=== PATIENT | female | born 1950 | race Caucasian/White ===

== ENCOUNTER → 2017-01-18 | Outpatient (CLI) | payer MEDICARE ==
[2017-01-18 09:55] LABS: ALT 32 U/L (9-52); AST 31 U/L (14-36); Cholesterol 150 mg/dL (<200); HDL Cholesterol 65 mg/dL (40-60); Triglycerides 55 mg/dL (<150)
== END | disposition home or self-care (01) ==
LOC: LABWHC1 08:36
PROVIDERS: ATTEND Family Medicine
DX: E78.00 Pure hypercholesterolemia, unspecified (principal)
CPT/HCPCS: 36415; 80061; 84450; 84460

== ENCOUNTER → 2018-01-16 | Outpatient (CLI) | payer MEDICARE ==
--- NOTE | 2018-01-16 08:15 | BD ---
EXAMINATION TYPE: Axial Bone Density DATE OF EXAM: 01/16/2018 COMPARISON: NONE CLINICAL HISTORY: Postmenopausal female. Osteoporosis screening. Height: 64 Weight: 242.5 FRAX RISK QUESTIONS: Alcohol (3 or more units per day): no Family History (Parent hip fracture): no Glucocorticoids (More than 3mos): no (Ex: prednisone, prednisolone, methylprednisolone, dexamethasone, and hydrocortisone). History of Fracture in Adulthood: no Secondary Osteoporosis: 1. Type 1 Diabetes: no 2. Hyperthyroidism: no 3. Menopause before 45: no 4. Malnutrition: no 5. Chronic liver disease: no Rheumatoid Arthritis: no Current Tobacco Use: no RISK FACTORS HISTORY OF: History of Wrist Fracture: left wrist When: age 11 Surgery to Spine/Hip(right/left)/Wrist (right/left): lower lumbar disc When: Active: yes Diet low in dairy products/other sources of calcium: yes Postmenopausal woman: age 51 Lost more than 2 inches in height since high school: yes Frequent falls: no MEDICATIONS: cholesterol meds, blood pressure meds, water pill, inhaler, vitamins Thyroid Medications: levothyroxine How Lon years Additional History: EXAM MEASUREMENTS: Bone mineral densitometry was performed using the [employer] System. Bone mineral density as measured about the Lumbar spine is: ----- L1-L4(G/cm2): 1.273 T Score Values are as follows: ----- L2: 0.0 ----- L3: 1.4 ----- L4: 1.3 ----- L1-L4: 0.8 Bone mineral density baseline Bone mineral density about the R hip (g/cm2): 0.790 Bone mineral density about the L hip (g/cm2): 0.788 T Score values are as follows: -----R Neck: -1.8 -----L Neck: -1.8 -----R Total: -1.0 -----L Total: -0.8 Bone mineral density has:: baseline IMPRESSION: Osteopenia (T Score between -2.5 and -1). There is slightly increased risk of fracture and the patient may be considered for treatment. Re-Screen 2-5 years. NOTE: T-SCORE=SD OF THE YOUNG ADULT MEAN.
--- NOTE | 2018-01-17 13:27 | MM ---
Reason for exam: screening (asymptomatic). Last mammogram was performed 2 years and 7 months ago. History: Patient is postmenopausal. Took hormonal contraceptives for 3 years. Physical Findings: A clinical breast exam by your physician is recommended on an annual basis and results should be correlated with mammographic findings. MG 3D Screening Mammo W/Cad Bilateral CC and MLO view(s) were taken. Prior study comparison: June 23, 2015, mammogram, performed at [facility]. June 16, 2011, mammogram, performed at [facility]. There are scattered fibroglandular densities. No significant changes when compared with prior studies. ASSESSMENT: Benign, BI-RAD 2 RECOMMENDATION: Routine screening mammogram of both breasts in 1 year.
== END | disposition home or self-care (01) ==
LOC: RADMAMWWP 06:49
PROVIDERS: ATTEND Family Medicine
DX: Z12.31 Encounter for screening mammogram for malignant neoplasm of breast (principal); M85.80 Other specified disorders of bone density and structure, unspecified site
CPT/HCPCS: 77063; 77067; 77080

== ENCOUNTER 2018-04-10 20:37 | Inpatient (IN) | payer MEDICARE ==
--- NOTE | 2018-04-10 20:59 | ED ---
Chest Pain HPI - General Chief Complaint: Chest Pain Stated Complaint: SOB/poss kidney infection Time Seen by Provider: 04/10/18 20:51 Source: patient, family Mode of arrival: ambulatory Limitations: no limitations - History of Present Illness Initial Comments: Sirisha is an obese 68-year-old female who presents to the emergency department today for evaluation of chest pain and shortness of breath. Patient reports that she has a history of COPD and occasionally needs breathing treatments. She reports that today she was sitting at home, they do not have air conditioning at home. She reports that if she sat on her couch in front of a fan she felt okay but any time she got up to walk she felt as though she couldn' t breathe. Patient reports that throughout the evening she began feeling pressure in her chest which she describes as feeling like there is an elephant sitting on her chest. She cannot identify any exacerbating or relieving factors to the pain. Pain has been constant this afternoon. This pressure is associated with shortness of breath but no diaphoresis lightheadedness or palpitations. Patient has no cardiac history and has never been evaluated by product safety specialist in the past. Patient denies any recent fevers, chills, nausea or vomiting. She does report that she feels as though she is retaining fluid, she feels that her abdomen is distended as well as mild swelling of her bilateral lower extremities. Patient reports that this is progressively worsening over time. She has no formal diagnosis of congestive heart failure but does state that she is on water pills. Patient reports that she has been compliant with her home medications including her furosemide. Patient denies any recent fevers, chills, nausea or vomiting. - Related Data Home Medications Medication Instructions Recorded Confirmed Levothyroxine Sodium [Synthroid] 50 mcg PO QAM 04/10/14 04/10/18 Lisinopril [Zestril] 10 mg PO QAM 04/10/14 04/10/18 Montelukast [Singulair] 10 mg PO HS 04/10/14 04/10/18 Ascorbic Acid [Vitamin C] 500 mg PO DAILY 02/23/16 04/10/18 Calcium Carbonate [Calcium] 1,200 mg PO DAILY 02/23/16 04/10/18 Fluticasone/Salmeterol [Advair Hfa 2 puff INHALATION RT-BID 02/23/16 04/10/18 230-21 Mcg Inhaler] Multivit with Calcium,Iron,Min 1 tab PO DAILY 02/23/16 04/10/18 [Women's Daily Multivitamin] Furosemide [Lasix] 20 mg PO DAILY 06/28/16 04/10/18 Magnesium 200 mg PO DAILY 06/28/16 04/10/18 Cholecalciferol [Vitamin D3] 1,000 unit PO DAILY 04/10/18 04/10/18 L.acidoph,Paracasei, B.lactis 1 cap PO DAILY 04/10/18 04/10/18 [Probiotic] Naproxen Sodium [Aleve] 220 mg PO HS PRN 04/10/18 04/10/18 [place]-3 Fatty Acids/Fish Oil [Fish 1 cap PO DAILY 04/10/18 04/10/18 Oil 1,000 mg Softgel] Rosuvastatin Calcium [Crestor] 10 mg PO HS 04/10/18 04/10/18 Ubidecarenone [Co Q-10] 100 mg PO DAILY 04/10/18 04/10/18 Allergies Allergy/AdvReac Type Severity Reaction Status Date / Time codeine Allergy Unknown Verified 04/10/18 22:31 Penicillins Allergy Unknown Verified 04/10/18 22:31 Sulfa (Sulfonamide Allergy Unknown Verified 04/10/18 22:31 Antibiotics) actofed Allergy Unknown Uncoded 04/10/18 20:49 Review of Systems ROS Statement: Those systems with pertinent positive or pertinent negative responses have been documented in the HPI. ROS Other: All systems not noted in ROS Statement are negative. EKG Findings - EKG Comments: EKG Findings:: EKG obtained at 2053, rate is 92, rhythm is sinus, normal axis, normal intervals, VA 168, QRS 80, QTC 435, there are no acute ST elevations or depressions there is no evidence of acute ischemia or infarction or arrhythmia. Past Medical History Past Medical History: Asthma, COPD, GERD/Reflux, Hyperlipidemia, Hypertension, Osteoarthritis (OA), Thyroid Disorder Additional Past Medical History / Comment(s): emphysema, hx migraines, rash on back History of Any Multi-Drug Resistant Organisms: None Reported Past Surgical History: Appendectomy, Back Surgery, Cholecystectomy, Tonsillectomy Additional Past Surgical History / Comment(s): colonoscopy Past Anesthesia/Blood Transfusion Reactions: No Reported Reaction Past Psychological History: No Psychological Hx Reported Smoking Status: Former smoker - Past Family History Mother Family Medical History: No Reported History General Exam - General Exam Comments Initial Comments: GENERAL: Patient is well-developed and well-nourished. Patient is nontoxic and well- hydrated and is in mild distress. HENT: Normocephalic, Atraumatic. Neck is soft and supple. No significant lymphadenopathy is noted. Oropharynx is clear. Moist mucous membranes. Neck has full range of motion without eliciting any pain. EYES: The sclera were anicteric and conjunctiva were pink and moist. Extraocular movements were intact and pupils were equal round and reactive to light. Eyelids were unremarkable. PULMONARY: Tachypnea with crackles at the bilateral bases CARDIOVASCULAR: There is a regular rate and rhythm without any murmurs gallops or rubs. ABDOMEN: Soft and nontender with normal bowel sounds. Obese SKIN: Skin is clear with no lesions or rashes and otherwise unremarkable. NEUROLOGIC: Patient is alert and oriented x3. Cranial nerves II through XII are grossly intact. MUSCULOSKELETAL: Normal extremities with adequate strength and full range of motion. No calf tenderness. One plus pitting edema to the lower extremities bilaterally LYMPHATICS: No significant lymphadenopathy is noted PSYCHIATRIC: Normal psychiatric evaluation. Limitations: no limitations Limitations: no limitations Course Vital Signs 04/10/18 04/10/18 04/11/18 20:46 21:26 00:09 Temperature 99.7 F H Pulse Rate 98 85 Respiratory 28 H 18 20 Rate Blood Pressure 146/85 170/75 O2 Sat by Pulse 94 L 91 L Oximetry 04/11/18 00:47 Temperature 98.3 F Pulse Rate 82 Respiratory 16 Rate Blood Pressure 153/70 O2 Sat by Pulse 93 L Oximetry Chest Pain MDM - MDM The patient was seen and evaluated, history was obtained from the patient and daughter at bedside COPD patient with worsening SOB today, states that she does not have air conditioning at home and she feels very short of breath. She states that she feels fine if she sits on her couch with a fan on her face, however if she gets up to walk to the restroom she becomes very short of breath and her chest feels tight. Cardiac workup ordered Duoneb and Solumedrol ordered CXR unremarkable Patient ambulated to the restroom independently, upon turning to her room she was placed back on the monitor noted to have an oxygen saturation mid 80s results work of breathing Trop negative, EKG with no evidence of ischemia At this time I will plan to admit the patient for COPD exacerbation with hypoxia as well as chest pain Patient is agreeable to plan for admission. Patient expresses concern that the weather is too hot for her to be at home without air conditioning because she cannot breath well at home. Disposition Clinical Impression: Chest pain, COPD exacerbation, Hypoxia Disposition: ADMITTED IP TO THIS HOSP Condition: Stable
[2018-04-10 21:39] LABS: Basophils # (A) 0.1 k/uL (0-0.2); Basophils % (A) 0 %; Eosinophils # (A) 0.1 k/uL (0-0.7); Eosinophils % (A) 1 %; HCT 41.3 % (34.0-46.0); HGB 13.2 gm/dL (11.4-16.0); Lymphocytes # (A) 2.9 k/uL (1.0-4.8); Lymphocytes % (A) 14 %; MCH 29.1 pg (25.0-35.0); MCHC 31.8 g/dL (31.0-37.0); MCV 91.4 fL (80.0-100.0); Mean Platelet Volume 7.2; Monocytes # (A) 0.8 k/uL (0-1.0); Monocytes % (A) 4 %; Neutrophils # (A) 16.5 k/uL (1.3-7.7); Neutrophils % (A) 80 %; Platelet Count 308 k/uL (150-450); RBC 4.52 m/uL (3.80-5.40); RDW 13.6 % (11.5-15.5); WBC 20.5 k/uL (3.8-10.6)
[2018-04-10 21:54] LABS: ALT 31 U/L (9-52); AST 24 U/L (14-36); Albumin 4.4 g/dL (3.5-5.0); Alkaline Phosphatase 98 U/L (38-126); Anion Gap 12 mmol/L; Blood Urea Nitrogen 13 mg/dL (7-17); Calcium 9.5 mg/dL (8.4-10.2); Carbon Dioxide 21 mmol/L (22-30); Chloride 100 mmol/L (98-107); Glucose 94 mg/dL (74-99); Magnesium 1.8 mg/dL (1.6-2.3); Potassium 4.7 mmol/L (3.5-5.1); Prothrombin Time 10.1 sec (9.0-12.0); Sodium 133 mmol/L (137-145); Total Bilirubin 0.5 mg/dL (0.2-1.3); Total Protein 7.1 g/dL (6.3-8.2)
[2018-04-10 21:56] LABS: Creatine Kinase 64 U/L (30-135)
--- NOTE | 2018-04-10 21:57 | XR ---
EXAMINATION TYPE: XR chest 2V DATE OF EXAM: 04/10/2018 COMPARISON: NONE HISTORY: Chest pain TECHNIQUE: Frontal and lateral views of the chest are obtained. FINDINGS: There is no heart failure nor confluent pneumonic infiltrate. Costophrenic angles are thaddeus r. Heart size is normal. There are chest leads. Exam is limited by the patient's size. IMPRESSION: No active cardiopulmonary disease. Normal heart.
[2018-04-10 22:09] LABS: Creatine Kinase MB 0.7 ng/mL (0.0-2.4); Troponin I <0.012 ng/mL (0.000-0.034)
[2018-04-10] MEDS ORDERED: methylPREDNISolone SOD SUCCI 125 MG/2 ML VIAL IV STA (22:47)
[2018-04-10 23:11] LABS: Appearance,Urine Clear (Clear); Bilirubin,Urine Negative (Negative); Blood,Urine Negative (Negative); Color,Urine Yellow; Glucose,Urine (UA) Negative (Negative); Ketones,Urine Trace (Negative); Leukocyte Esterase,Urine Small (Negative); Nitrite,Urine Negative (Negative); Protein,Urine Negative (Negative); RBC,Urine 1 /hpf (0-5); Specific Gravity,Urine 1.009 (1.001-1.035); Squamous Epithelial Cell,Urine <1 /hpf (0-4); Urobilinogen,Urine <2.0 mg/dL (<2.0); WBC,Urine 4 /hpf (0-5)
[2018-04-10] MEDS ORDERED: ASPIRIN 81 MG PO STA (23:53)
[2018-04-10] MEDS ORDERED: NITROGLYCERIN OINT 1 INCH/GM PACKET TOPICAL STA (23:53)
[2018-04-11 01:30] VITALS: BMI 42.0
[2018-04-11 04:39] LABS: Creatine Kinase 54 U/L (30-135)
[2018-04-11 04:51] LABS: Creatine Kinase MB 0.8 ng/mL (0.0-2.4); Troponin I <0.012 ng/mL (0.000-0.034)
[2018-04-11] MEDS: NITROGLYCERIN OINT 1 INCH/GM PACKET TOPICAL SCH ×4 (06:05→23:45)
[2018-04-11] MEDS: IPRATROPIUM-ALBUTEROL 3 ML NEB INHALATION PRN ×3 (07:45→20:38)
[2018-04-11] MEDS ORDERED: predniSONE 20 MG TAB PO SCH (09:00)
--- NOTE | 2018-04-11 09:44 | P.CRDCN ---
History of Present Illness Consult date: 04/11/18 Requesting physician: Lynette Freeman Consult reason: chest pain, shortness of breath Chief complaint: Chest heaviness, shortness of breath, fever History of present illness: This is a pleasant 68-year-old female with known history of COPD, hypertension, hyperlipidemia, hypothyroidism, prior history of smoking, who presented to the hospital with symptoms of chest pressure and heaviness, worsening shortness of breath, and fever. She states that initially she felt a discomfort in her lower back area and generally just not feeling well. She checked her temperature at home which came back to be 99, subsequent temperature she checked was 102. She also states that she's been progressively more short of breath at home, positive orthopnea, and also she has noticed recently to have peripheral edema which appears to be new for her. For all of the above reasons she came to the emergency room for further evaluation. Approximately 2 months ago, she states that she went to see her lung doctor, she felt as though she may have pneumonia, he started her on steroids, which she states she has been off of for a month now. Chest x-ray on admission did not reveal any active cardiopulmonary disease. EKG shows a normal sinus rhythm with no acute changes. Subsequent EKG performed this morning shows normal sinus rhythm with no acute changes. Blood pressure on arrival here 146/84, heart rate in the 90s, 94% on room air. Temperature on arrival 99.7. This morning's temperature 96.5, 99/60 blood pressure, 94% on 2 L of oxygen. White blood cell count 20.5, hemoglobin 13.2, platelet count 308. Sodium 133, potassium 4.7, BUN 13, creatinine 0.7. Magnesium 1.8. Troponins 0.012, 0.012. UA trace of ketones, small amount of leukocyte Estrace. At the time of my examination this morning, patient denies any chest pressure or heaviness, she still complains of feeling mildly short of breath. Past Medical History Past Medical History: Asthma, COPD, GERD/Reflux, Hyperlipidemia, Hypertension, Osteoarthritis (OA), Thyroid Disorder Additional Past Medical History / Comment(s): emphysema, hx migraines, rash on back History of Any Multi-Drug Resistant Organisms: None Reported Past Surgical History: Appendectomy, Back Surgery, Cholecystectomy, Tonsillectomy Additional Past Surgical History / Comment(s): colonoscopy Past Anesthesia/Blood Transfusion Reactions: No Reported Reaction Past Psychological History: No Psychological Hx Reported Smoking Status: Former smoker - Past Family History Mother Family Medical History: No Reported History Additional Family Medical History / Comment(s): from alzheimers Father Family Medical History: Congestive Heart Failure (CHF) Additional Family Medical History / Comment(s): valve replacement Medications and Allergies Home Medications Medication Instructions Recorded Confirmed Type Levothyroxine Sodium [Synthroid] 50 mcg PO QAM 04/10/14 04/10/18 History Lisinopril [Zestril] 10 mg PO QAM 04/10/14 04/10/18 History Montelukast [Singulair] 10 mg PO HS 04/10/14 04/10/18 History Ascorbic Acid [Vitamin C] 500 mg PO DAILY 02/23/16 04/10/18 History Calcium Carbonate [Calcium] 1,200 mg PO DAILY 02/23/16 04/10/18 History Fluticasone/Salmeterol [Advair Hfa 2 puff INHALATION RT-BID 02/23/16 04/10/18 History 230-21 Mcg Inhaler] Multivit with Calcium,Iron,Min 1 tab PO DAILY 02/23/16 04/10/18 History [Women's Daily Multivitamin] Furosemide [Lasix] 20 mg PO DAILY 06/28/16 04/10/18 History Magnesium 200 mg PO DAILY 06/28/16 04/10/18 History Cholecalciferol [Vitamin D3] 1,000 unit PO DAILY 04/10/18 04/10/18 History L.acidoph,Paracasei, B.lactis 1 cap PO DAILY 04/10/18 04/10/18 History [Probiotic] Naproxen Sodium [Aleve] 220 mg PO HS PRN 04/10/18 04/10/18 History [place]-3 Fatty Acids/Fish Oil [Fish 1 cap PO DAILY 04/10/18 04/10/18 History Oil 1,000 mg Softgel] Rosuvastatin Calcium [Crestor] 10 mg PO HS 04/10/18 04/10/18 History Ubidecarenone [Co Q-10] 100 mg PO DAILY 04/10/18 04/10/18 History Allergies Allergy/AdvReac Type Severity Reaction Status Date / Time codeine Allergy Unknown Verified 04/10/18 22:31 Penicillins Allergy Unknown Verified 04/10/18 22:31 Sulfa (Sulfonamide Allergy Unknown Verified 04/10/18 22:31 Antibiotics) actofed Allergy Unknown Uncoded 04/10/18 20:49 Physical Exam Vitals: Vital Signs Temp Pulse Pulse Resp BP BP Pulse Ox 04/11/18 08:00 96.5 F L 75 16 99/65 94 L 04/11/18 07:58 84 04/11/18 07:47 76 04/11/18 04:00 97.2 F L 71 16 142/85 93 L 04/11/18 00:54 97.2 F L 88 16 143/83 94 L 04/11/18 00:47 98.3 F 82 16 153/70 93 L 04/11/18 00:09 85 20 170/75 91 L 04/10/18 21:26 18 04/10/18 20:46 99.7 F H 98 28 H 146/85 94 L Intake and Output 04/10/18 04/11/18 04/11/18 22:59 06:59 14:59 Intake Total 0 Balance 0 Intake: Oral 0 Other: # Voids 1 Weight 111.13 kg 108.5 kg PHYSICAL EXAMINATION: GENERAL: 68 patient female in no acute distress at the time of my examination HEENT: Head is atraumatic, normocephalic. Pupils equal, round. Sclera anicteric. Conjunctiva are clear. Mucous membranes of the mouth are moist. Neck is supple. There is elevated jugular venous pressure. No carotid bruit is heard. HEART EXAMINATION: Heart S1, S2 normal. No murmur or gallop heard. CHEST EXAMINATION: Lungs are clear with diminished air entry to bilateral bases. ABDOMEN: Soft, nontender. Bowel sounds are heard. No organomegaly noted. EXTREMITIES: 2+ peripheral pulses with trace evidence of peripheral edema and no calf tenderness noted. NEUROLOGIC patient is awake, alert and oriented ?-3. . Results 04/10/18 21:00 04/10/18 21:00 Cardiac Enzymes 04/10/18 04/10/18 04/11/18 Range/Units 21:00 21:00 03:28 AST 24 (14-36) U/L CK-MB (CK-2) 0.7 0.8 (0.0-2.4) ng/mL Troponin I <0.012 <0.012 (0.000-0.034) ng/mL Coagulation 04/10/18 Range/Units 21:00 PT 10.1 (9.0-12.0) sec APTT 26.0 (22.0-30.0) sec CBC 04/10/18 Range/Units 21:00 WBC 20.5 H (3.8-10.6) k/uL RBC 4.52 (3.80-5.40) m/uL Hgb 13.2 (11.4-16.0) gm/dL Hct 41.3 (34.0-46.0) % Plt Count 308 (150-450) k/uL Comprehensive Metabolic Panel 04/10/18 Range/Units 21:00 Sodium 133 L (137-145) mmol/L Potassium 4.7 (3.5-5.1) mmol/L Chloride 100 (98-107) mmol/L Carbon Dioxide 21 L (22-30) mmol/L BUN 13 (7-17) mg/dL Creatinine 0.70 (0.52-1.04) mg/dL Glucose 94 (74-99) mg/dL Calcium 9.5 (8.4-10.2) mg/dL AST 24 (14-36) U/L ALT 31 (9-52) U/L Alkaline Phosphatase 98 (38-126) U/L Total Protein 7.1 (6.3-8.2) g/dL Albumin 4.4 (3.5-5.0) g/dL Current Medications Generic Name Dose Route Start Last Admin Trade Name Freq PRN Reason Stop Dose Admin Albuterol/Ipratropium 3 ml 04/11/18 00:01 04/11/18 07:45 Duoneb 0.5 Mg-3 Mg/3 Ml Soln INHALATION 3 ml RT-Q4H PRN Administration Shortness Of Breath Or Wheezing Aspirin 325 mg 04/12/18 09:00 Aspirin PO DAILY ALICIA Nitroglycerin 0.5 inch 04/11/18 06:00 04/11/18 06:05 Nitro-Bid Oint TOPICAL 0.5 inch Q6HR ALICIA Administration Prednisone 40 mg 04/11/18 09:00 04/11/18 07:59 PO 40 mg DAILY ALICIA Administration Intake and Output 04/10/18 04/11/18 04/11/18 22:59 06:59 14:59 Intake Total 0 Balance 0 Intake: Oral 0 Other: # Voids 1 Weight 111.13 kg 108.5 kg 04/10/18 21:00 04/10/18 21:00 EKG Interpretations (text) EKG shows normal sinus rhythm with no acute changes. Assessment and Plan Plan: Assessment and plan #1 symptoms of chest heaviness with associated shortness of breath, atypical features for ACS. EKG shows normal sinus rhythm with no acute changes. Troponins are negative 2. #2 fever of 102 prior to arrival, temperature 99.0. With elevated white blood cell count. No clear-cut evidence of UTI. Rule out possible pneumonia. #3 COPD with a possible exacerbation #4 hypertension #5 hyperlipidemia #6 prior history of smoking #7Hypothyroidism Plan We will obtain an echocardiogram with Doppler study. We will also obtain a BNP level. Resume the patient's Crestor, resume Lasix and Zestril. Patient's symptoms of chest discomfort are atypical for acute coronary syndrome, however once the cause of fever is determined, we would recommend to undergo stress testing either inpatient or outpatient. Further recommendations to follow. DNP note has been reviewed, I agree with a documented findings and plan of care. Patient was seen and examined.
[2018-04-11 10:18] LABS: Creatine Kinase 56 U/L (30-135)
[2018-04-11 10:31] LABS: Creatine Kinase MB 1.2 ng/mL (0.0-2.4); Troponin I <0.012 ng/mL (0.000-0.034)
--- NOTE | 2018-04-11 12:55 | ECHOF ---
Referral Reason:chest pain MEASUREMENTS -------- HEIGHT: 162.6 cm WEIGHT: 108.4 kg BP: 90/65 RVIDd: 2.7 cm (< 3.3) IVSd: 1.4 cm (0.6 - 1.1) LVIDd: 4.3 cm (3.9 - 5.3) LVPWd: 1.1 cm (0.6 - 1.1) IVSs: 1.7 cm LVIDs: 2.7 cm LVPWs: 2.0 cm LA Diam: 3.9 cm (2.7 - 3.8) Ao Diam: 2.6 cm (2.0 - 3.7) AV Cusp: 1.7 cm (1.5 - 2.6) LA Diam: 4.0 cm (2.7 - 3.8) MV EXCURSION: 21.432 mm (> 18.000) MV EF SLOPE: 61 mm/s (70 - 150) EPSS: 0.7 cm MV E Wood: 0.59 m/s MV DecT: 244 ms MV A Wood: 0.89 m/s MV E/A Ratio: 0.66 RAP: 5.00 mmHg RVSP: 14.34 mmHg FINDINGS -------- Sinus rhythm. This was a technically adequate study. The left ventricular size is normal. There is mild concentric left ventricular hypertrophy. Overa ll left ventricular systolic function is normal with, an EF between 55 - 60 %. The right ventricle is normal in size. The left atrial size is normal. The right atrial size is normal. Aortic valve is trileaflet and is mildly thickened. There is no evidence of aortic regurgitation. Mild mitral annular calcification present. Mild mitral regurgitation is present. Mild tricuspid regurgitation present. There is no evidence of pulmonary hypertension. The right v entricular systolic pressure, as measured by Doppler, is 14.34mmHg. There is no pulmonic regurgitation present. The aortic root size is normal. Echo free space represents a pericardial fat pad. CONCLUSIONS -------- 1. Sinus rhythm. 2. The left ventricular size is normal. 3. There is mild concentric left ventricular hypertrophy. 4. Overall left ventricular systolic function is normal with, an EF between 55 - 60 %. 5. The left atrial size is normal. 6. Aortic valve is trileaflet and is mildly thickened. 7. Mild mitral annular calcification present. 8. Mild mitral regurgitation is present. 9. Mild tricuspid regurgitation present. 10. There is no evidence of pulmonary hypertension. 11. There is no pulmonic regurgitation present. 12. The aortic root size is normal. 13. Echo free space represents a pericardial fat pad. T[employer] DISTILLATION SUPERVISOR: Cheryl Singh RDCS
--- NOTE | 2018-04-11 14:23 | P.CNPUL ---
History of Present Illness Consult date: 04/11/18 Requesting physician: Lynette Freeman Reason for consult: dyspnea Chief complaint: Shortness of breath, chest pain History of present illness: This a very pleasant 68-year-old female patient who follows with Dr. Jhaveri as her primary care physician. She has a history of hypothyroidism, hypertension, hyperlipidemia, history esophageal reflux disease, osteoarthritis. She also has a history of chronic obstructive pulmonary disease and is a former smoker. She follows up with Dr. Longoria in our office for the same. She is on Singulair, Advair, albuterol in the outpatient setting. She presented here to the emergency room last evening with complaints of chest pressure, heaviness and shortness of breath. She also states she had a temperature up to 102. Occasional cough nonproductive. She also had some lower extremity peripheral edema. She was at rest when the symptoms occurred. No previous history of chest pain or coronary artery disease. Chest x-ray reveals no acute cardio pulmonary process. EKG reveals no acute ST or T wave abnormalities. Echocardiogram reveals preserved left ventricular systolic function. No significant valvular abnormalities. No pulmonary hypertension. Troponins are negative 3. ProBNP 81. White count 20.5. Hemoglobin 13.2. CO2 21. Creatinine 0.70. She is seen today in consultation on the selective care unit. She is awake and alert in no acute distress. She does have some ongoing dyspnea with exertion. Dry nonproductive cough. No fever or chills. Currently afebrile. Maintaining O2 saturations in the 90s on 2 L/m per nasal cannula. Hemodynamically stable. Chest pain has subsided she states following the nitro paste application. Review of Systems Constitutional: Reports chills, Reports fever Eyes: denies blurred vision, denies decreased vision Ears: deny: decreased hearing Ears, nose, mouth and throat: Denies headache, Denies sore throat Cardiovascular: Reports chest pain, Reports dyspnea on exertion, Reports edema, Reports shortness of breath Respiratory: Reports congestion, Reports cough, Reports dyspnea, Reports wheezing Gastrointestinal: Denies abdominal pain, Denies diarrhea, Denies nausea, Denies vomiting Genitourinary: Denies dysuria, Denies hematuria Musculoskeletal: Denies myalgias Integumentary: Denies pruritus, Denies rash Neurological: Denies numbness, Denies weakness Psychiatric: Denies anxiety, Denies depression Endocrine: Denies fatigue, Denies weight change Hematologic/Lymphatic: Reports as per HPI Allergic/Immunologic: Reports as per HPI Past Medical History Past Medical History: Asthma, COPD, GERD/Reflux, Hyperlipidemia, Hypertension, Osteoarthritis (OA), Thyroid Disorder Additional Past Medical History / Comment(s): emphysema, hx migraines, rash on back History of Any Multi-Drug Resistant Organisms: None Reported Past Surgical History: Appendectomy, Back Surgery, Cholecystectomy, Tonsillectomy Additional Past Surgical History / Comment(s): colonoscopy Past Anesthesia/Blood Transfusion Reactions: No Reported Reaction Past Psychological History: No Psychological Hx Reported Smoking Status: Former smoker - Past Family History Mother Family Medical History: No Reported History Additional Family Medical History / Comment(s): from alzheimers Father Family Medical History: Congestive Heart Failure (CHF) Additional Family Medical History / Comment(s): valve replacement Medications and Allergies Home Medications Medication Instructions Recorded Confirmed Type Levothyroxine Sodium [Synthroid] 50 mcg PO QAM 04/10/14 04/10/18 History Lisinopril [Zestril] 10 mg PO QAM 04/10/14 04/10/18 History Montelukast [Singulair] 10 mg PO HS 04/10/14 04/10/18 History Ascorbic Acid [Vitamin C] 500 mg PO DAILY 02/23/16 04/10/18 History Calcium Carbonate [Calcium] 1,200 mg PO DAILY 02/23/16 04/10/18 History Fluticasone/Salmeterol [Advair Hfa 2 puff INHALATION RT-BID 02/23/16 04/10/18 History 230-21 Mcg Inhaler] Multivit with Calcium,Iron,Min 1 tab PO DAILY 02/23/16 04/10/18 History [Women's Daily Multivitamin] Furosemide [Lasix] 20 mg PO DAILY 06/28/16 04/10/18 History Magnesium 200 mg PO DAILY 06/28/16 04/10/18 History Cholecalciferol [Vitamin D3] 1,000 unit PO DAILY 04/10/18 04/10/18 History L.acidoph,Paracasei, B.lactis 1 cap PO DAILY 04/10/18 04/10/18 History [Probiotic] Naproxen Sodium [Aleve] 220 mg PO HS PRN 04/10/18 04/10/18 History [place]-3 Fatty Acids/Fish Oil [Fish 1 cap PO DAILY 04/10/18 04/10/18 History Oil 1,000 mg Softgel] Rosuvastatin Calcium [Crestor] 10 mg PO HS 04/10/18 04/10/18 History Ubidecarenone [Co Q-10] 100 mg PO DAILY 04/10/18 04/10/18 History Allergies Allergy/AdvReac Type Severity Reaction Status Date / Time codeine Allergy Unknown Verified 04/10/18 22:31 Penicillins Allergy Unknown Verified 04/10/18 22:31 Sulfa (Sulfonamide Allergy Unknown Verified 04/10/18 22:31 Antibiotics) actofed Allergy Unknown Uncoded 04/10/18 20:49 Physical Exam Vitals: Vital Signs Temp Pulse Pulse Resp BP BP Pulse Ox 04/11/18 12:00 70 16 143/85 93 L 04/11/18 08:00 96.5 F L 75 16 99/65 94 L 04/11/18 07:58 84 04/11/18 07:47 76 04/11/18 04:00 97.2 F L 71 16 142/85 93 L 04/11/18 00:54 97.2 F L 88 16 143/83 94 L 04/11/18 00:47 98.3 F 82 16 153/70 93 L 04/11/18 00:09 85 20 170/75 91 L 04/10/18 21:26 18 04/10/18 20:46 99.7 F H 98 28 H 146/85 94 L Intake and Output 04/10/18 04/11/18 04/11/18 22:59 06:59 14:59 Intake Total 0 Balance 0 Intake: Oral 0 Other: # Voids 1 Weight 111.13 kg 108.5 kg GENERAL EXAM: Alert, active, comfortable in no apparent distress. HEAD: Normocephalic. EYES: Normal reaction of pupils, equal size. NOSE: Clear with pink turbinates. THROAT: No erythema or exudates. NECK: No masses, no JVD. CHEST: No chest wall deformity. LUNGS: Equal air entry with faint end expiratory wheeze. CVS: S1 and S2 normal with no audible murmur, regular rhythm. ABDOMEN: No hepatosplenomegaly, normal bowel sounds, no guarding or rigidity. SPINE: No scoliosis or deformity SKIN: No rashes CENTRAL NERVOUS SYSTEM: No focal deficits, tone is normal in all 4 extremities. EXTREMITIES: There is no peripheral edema. No clubbing, no cyanosis. Peripheral pulses are intact. Results - Laboratory Findings CBC and BMP: 04/10/18 21:00 04/10/18 21:00 PT/INR, D-dimer PT 10.1 sec (9.0-12.0) 04/10/18 21:00 INR 1.0 (<1.2) 04/10/18 21:00 Abnormal lab findings: Abnormal Labs 04/10/18 04/10/18 04/10/18 21:00 21:00 22:42 WBC 20.5 H Neutrophils # 16.5 H Sodium 133 L Carbon Dioxide 21 L Urine Ketones Trace H Ur Leukocyte Esterase Small H - Diagnostic Findings Chest x-ray: image reviewed (No acute cardio pulmonary process.) Assessment and Plan Assessment: Impression: #1 Atypical chest pain with no evidence of acute coronary syndrome. #2 Acute exacerbation of chronic obstructive pulmonary disease. #3 History of chronic tobacco dependence. #4 Hyperlipidemia. #5 Hypertension. #6 Hypothyroidism. #7 Osteoarthritis. Plan: The patient was seen and evaluated by Dr. Waller. Chest x-ray and labs reviewed. We'll go ahead and treat her for an acute exacerbation of her COPD. IV Solu-Medrol, DuoNeb inhalations, Symbicort, Singulair. She has been seen and evaluated by cardiology and the plan is for probable stress testing. We will continue to follow and make further recommendations based on her clinical status. I, the cosigning physician, performed a history & physical examination of the patient. Lungs sounds with faint end expiratory wheeze. Maintaining good O2 saturations in the 90s on 2 L/m per nasal cannula. I discussed the assessment and plan of care with my nurse practitioner, Aleksandra Crook. I attest to the above note as dictated by her. Time with Patient: Greater than 30
--- NOTE | 2018-04-11 16:08 | P.HPIM ---
History of Present Illness H&P Date: 04/11/18 Chief Complaint: Shortness of breath Patient is a 68-year-old female with a known history of COPD/asthma, hypertension, hyperlipidemia, hypothyroidism and osteoarthritis came to ER with complaints of shortness of breath and chest pain at the right lower chest and tightness. Patient also says that she had a temperature up to 102. Patient does have cough without sputum production. No recent illnesses. No sick contacts at home. Patient also noticed some lower extremity swelling. Denied any recent illnesses. Chest x-ray showed no acute cardio pulmonary process. UA negative. EKG showed normal sinus rhythm. No acute ST-T wave changes. 2-D echo Cardizem showed normal EF. No wall motion abnormalities. BNP 81 Troponin 3 negative WBC 20.5 on admission. Patient is being treated for acute COPD exacerbation and is currently breathing status is improving. Patient is not on home oxygen. Review of Systems Constitutional: Patient denies any fever or chills . No generalized weakness or weight loss. Abdomen: Patient denied nausea vomiting and diarrhea and abdominal pain. Cardiovascular: Patient denies any chest pain or short of breath no palpitations. Respiratory: Patient does have chest pressure and shortness of breath and tightness. Cough without much sputum production. Neurologic: Patient denied any numbness or tingling headache. Musculoskeletal: Patient denies any complaints of joint swelling or deformity. Skin: Negative Psychiatric: Negative Endocrine: No heat or cold intolerance. No recent weight gain. Genitourinary: No dysuria or hematuria. All other 14 point ROS negative except the above Past Medical History Past Medical History: Asthma, COPD, GERD/Reflux, Hyperlipidemia, Hypertension, Osteoarthritis (OA), Thyroid Disorder Additional Past Medical History / Comment(s): emphysema, hx migraines, rash on back History of Any Multi-Drug Resistant Organisms: None Reported Past Surgical History: Appendectomy, Back Surgery, Cholecystectomy, Tonsillectomy Additional Past Surgical History / Comment(s): colonoscopy Past Anesthesia/Blood Transfusion Reactions: No Reported Reaction Past Psychological History: No Psychological Hx Reported Smoking Status: Former smoker - Past Family History Mother Family Medical History: No Reported History Additional Family Medical History / Comment(s): from alzheimers Father Family Medical History: Congestive Heart Failure (CHF) Additional Family Medical History / Comment(s): valve replacement Medications and Allergies Home Medications Medication Instructions Recorded Confirmed Type Levothyroxine Sodium [Synthroid] 50 mcg PO QAM 04/10/14 04/10/18 History Lisinopril [Zestril] 10 mg PO QAM 04/10/14 04/10/18 History Montelukast [Singulair] 10 mg PO HS 04/10/14 04/10/18 History Ascorbic Acid [Vitamin C] 500 mg PO DAILY 02/23/16 04/10/18 History Calcium Carbonate [Calcium] 1,200 mg PO DAILY 02/23/16 04/10/18 History Fluticasone/Salmeterol [Advair Hfa 2 puff INHALATION RT-BID 02/23/16 04/10/18 History 230-21 Mcg Inhaler] Multivit with Calcium,Iron,Min 1 tab PO DAILY 02/23/16 04/10/18 History [Women's Daily Multivitamin] Furosemide [Lasix] 20 mg PO DAILY 06/28/16 04/10/18 History Magnesium 200 mg PO DAILY 06/28/16 04/10/18 History Cholecalciferol [Vitamin D3] 1,000 unit PO DAILY 04/10/18 04/10/18 History L.acidoph,Paracasei, B.lactis 1 cap PO DAILY 04/10/18 04/10/18 History [Probiotic] Naproxen Sodium [Aleve] 220 mg PO HS PRN 04/10/18 04/10/18 History [place]-3 Fatty Acids/Fish Oil [Fish 1 cap PO DAILY 04/10/18 04/10/18 History Oil 1,000 mg Softgel] Rosuvastatin Calcium [Crestor] 10 mg PO HS 04/10/18 04/10/18 History Ubidecarenone [Co Q-10] 100 mg PO DAILY 04/10/18 04/10/18 History Allergies Allergy/AdvReac Type Severity Reaction Status Date / Time codeine Allergy Unknown Verified 04/10/18 22:31 Penicillins Allergy Unknown Verified 04/10/18 22:31 Sulfa (Sulfonamide Allergy Unknown Verified 04/10/18 22:31 Antibiotics) actofed Allergy Unknown Uncoded 04/10/18 20:49 Physical Exam Vitals: Vital Signs Temp Pulse Pulse Resp BP BP Pulse Ox 04/11/18 08:00 96.5 F L 75 16 99/65 94 L 04/11/18 07:58 84 04/11/18 07:47 76 04/11/18 04:00 97.2 F L 71 16 142/85 93 L 04/11/18 00:54 97.2 F L 88 16 143/83 94 L 04/11/18 00:47 98.3 F 82 16 153/70 93 L 04/11/18 00:09 85 20 170/75 91 L 04/10/18 21:26 18 04/10/18 20:46 99.7 F H 98 28 H 146/85 94 L Intake and Output 04/10/18 04/11/18 04/11/18 22:59 06:59 14:59 Intake Total 0 Balance 0 Intake: Oral 0 Other: # Voids 1 Weight 111.13 kg 108.5 kg PHYSICAL EXAMINATION: Patient is lying in the bed comfortably, no acute distress, awake alert and oriented.. HEENT: Normocephalic. Neck is supple. Pupils reactive. Nostrils clear. Oral cavity is moist. Ears reveal no drainage. Neck reveals no JVD, carotid bruits, or thyromegaly. CHEST EXAMINATION: Trachea is central. Symmetrical expansion. Diminished air entry on the left lung. Prolonged expiration with wheezing on right side. No rhonchi.. CARDIAC: Normal S1, S2 with no gallops. No murmurs ABDOMEN: Soft. Bowel sounds normal. No organomegaly. No abdominal bruits. Extremities: Trace edema. No clubbing or cyanosis Neurologically awake, alert, oriented x3 with well-coordinated movements. No focal deficits noted Skin: No rash or skin lesions. Psychiatric: Coperative. Nonsuicidal Musculoskeletal: No joint swelling or deformity. Normal range of motion. Results CBC & Chem 7: 04/10/18 21:00 04/10/18 21:00 Labs: Abnormal Lab Results - Last 24 Hours (Table) 04/10/18 04/10/18 04/10/18 Range/Units 21:00 21:00 22:42 WBC 20.5 H (3.8-10.6) k/uL Neutrophils # 16.5 H (1.3-7.7) k/uL Sodium 133 L (137-145) mmol/L Carbon Dioxide 21 L (22-30) mmol/L Urine Ketones Trace H (Negative) Ur Leukocyte Esterase Small H (Negative) Thrombosis Risk Factor Assmnt - DVT/VTE Prophylaxis DVT/VTE Prophylaxis: Pharmacologic Prophylaxis ordered - Choose All That Apply Each Factor Represents 1 point: Abnormal pulmonary function (COPD), Obesity ( BMI >25), Swollen legs (current) Other Risk Factors: Yes Each Risk Factor Represents 2 Points: Age 61-74 years Thrombosis Risk Factor Assessment Total Risk Factor Score: 5 Thrombosis Risk Factor Assessment Level: High Risk Assessment and Plan Assessment: Shortness of breath due to acute COPD exacerbation Chest pain/pressure. Ruled out ACS. Serial EKG and troponin negative. BNP not elevated. D-dimer was ordered. Fever 102 at home and currently T-max is 99.7 on admission. Chest x-ray and UA negative. Leukocytosis 20.5 without evidence of infection so far. Hypertension Hyperlipidemia Hypothyroidism Osteoarthritis Morbid obesity with BMI 41.1 History of smoking History of migraine headaches DVT prophylaxis Plan: Patient will be continued on Solu-Medrol IV and DuoNeb's. Continue with home medications including blood pressure medications and telemetry monitoring. Cardiology and pulmonary is on board. Will follow-up repeat CBC and BMP tomorrow. Further recommendations based on the clinical course. Prognosis is guarded with multiple medical problems and comorbid conditions. Time with Patient: Greater than 30
[2018-04-11] MEDS: HEPARIN SODIUM,PORCINE 5,000 UNIT/ML 1 ML VIAL SQ SCH ×2 (16:20→23:45)
[2018-04-11] MEDS: methylPREDNISolone SOD SUCCI 40 MG/ML 1 ML VIAL IV SCH ×3 (16:20→23:02)
[2018-04-11] MEDS: MONTELUKAST 10 MG TAB PO SCH (20:19)
[2018-04-11] MEDS: ATORVASTATIN 20 MG TAB PO SCH (20:19)
[2018-04-11] MEDS ORDERED: NAPROXEN 250 MG TAB PO PRN (20:37)
[2018-04-11] MEDS: SYMBICORT 160-4.5 MCG INHALER INHALATION SCH (20:38)
[2018-04-11 20:44] LABS: Glucose,Whole Blood 157 mg/dL (75-99)
[2018-04-11] MEDS: INSULIN ASPART 100 UNIT/ML 1 ML 10 ML VIAL SQ SCH (21:16)
[2018-04-12 05:54] LABS: Glucose,Whole Blood 168 mg/dL (75-99)
[2018-04-12 06:33] LABS: Basophils % (A) 0 %; Eosinophils % (A) 0 %; HCT 41.5 % (34.0-46.0); HGB 13.4 gm/dL (11.4-16.0); Lymphocytes # (A) 1.5 k/uL (1.0-4.8); Lymphocytes % (A) 9 %; MCHC 32.2 g/dL (31.0-37.0); Mean Platelet Volume 7.4; Monocytes # (A) 0.3 k/uL (0-1.0); Monocytes % (A) 2 %; Neutrophils # (A) 15.1 k/uL (1.3-7.7); Neutrophils % (A) 89 %; Platelet Count 284 k/uL (150-450); RBC 4.46 m/uL (3.80-5.40); RDW 13.6 % (11.5-15.5); WBC 16.9 k/uL (3.8-10.6)
[2018-04-12 06:52] LABS: Anion Gap 10 mmol/L; Blood Urea Nitrogen 18 mg/dL (7-17); Calcium 9.4 mg/dL (8.4-10.2); Carbon Dioxide 24 mmol/L (22-30); Chloride 104 mmol/L (98-107); Cholesterol 156 mg/dL (<200); Glucose 164 mg/dL (74-99); HDL Cholesterol 83 mg/dL (40-60); LDL Cholesterol,Calculated 63 mg/dL (0-99); Potassium 4.6 mmol/L (3.5-5.1); Sodium 138 mmol/L (137-145); Triglycerides 49 mg/dL (<150)
[2018-04-12] MEDS: NITROGLYCERIN OINT 1 INCH/GM PACKET TOPICAL SCH ×4 (06:57→22:47)
[2018-04-12] MEDS: LEVOTHYROXINE 50 MCG TAB PO SCH (07:01)
[2018-04-12] MEDS: methylPREDNISolone SOD SUCCI 40 MG/ML 1 ML VIAL IV SCH ×4 (07:01→22:56)
[2018-04-12] MEDS: INSULIN ASPART 100 UNIT/ML 1 ML 10 ML VIAL SQ SCH ×4 (07:02→20:18)
[2018-04-12] MEDS: SYMBICORT 160-4.5 MCG INHALER INHALATION SCH ×2 (09:03→20:04)
[2018-04-12] MEDS: IPRATROPIUM-ALBUTEROL 3 ML NEB INHALATION PRN (09:03)
[2018-04-12] MEDS: HEPARIN SODIUM,PORCINE 5,000 UNIT/ML 1 ML VIAL SQ SCH ×3 (09:27→22:47)
[2018-04-12] MEDS: LACTOBACILLUS ACIDOPH & BULGAR 1 EACH PACKET PO SCH (09:28)
[2018-04-12] MEDS: CALCIUM CARBONATE 500 MG CHEWABLE PO SCH (09:28)
[2018-04-12] MEDS: CHOLECALCIFEROL 1,000 UNIT TAB PO SCH (09:28)
[2018-04-12] MEDS: MAGNESIUM OXIDE 400 MG TAB PO SCH (09:28)
[2018-04-12] MEDS: ASPIRIN 325 MG TAB PO SCH (09:28)
[2018-04-12] MEDS: ASCORBIC ACID 500 MG TAB PO SCH (09:28)
[2018-04-12] MEDS: OMEGA 3 PO SCH (09:29)
[2018-04-12] MEDS: CO Q-10 100MG PO SCH (09:29)
[2018-04-12] MEDS: MULTIVITAMINS, THERA 1 EACH TAB PO SCH (09:29)
[2018-04-12] MEDS: LISINOPRIL 10 MG TAB PO SCH (11:18)
[2018-04-12] MEDS: FUROSEMIDE 20 MG TAB PO SCH (11:18)
[2018-04-12 11:49] LABS: Glucose,Whole Blood 152 mg/dL (75-99)
[2018-04-12] MEDS: IPRATROPIUM-ALBUTEROL 3 ML NEB INHALATION SCH ×3 (12:59→20:04)
--- NOTE | 2018-04-12 13:46 | P.PN ---
Subjective Progress Note Date: 04/12/18 Principal diagnosis: Atypical chest pain and acute exacerbation of COPD This a very pleasant 68-year-old female patient who follows with Dr. Jhaveri as her primary care physician. She has a history of hypothyroidism, hypertension, hyperlipidemia, history esophageal reflux disease, osteoarthritis. She also has a history of chronic obstructive pulmonary disease and is a former smoker. She follows up with Dr. Longoria in our office for the same. She is on Singulair, Advair, albuterol in the outpatient setting. She presented here to the emergency room last evening with complaints of chest pressure, heaviness and shortness of breath. She also states she had a temperature up to 102. Occasional cough nonproductive. She also had some lower extremity peripheral edema. She was at rest when the symptoms occurred. No previous history of chest pain or coronary artery disease. Chest x-ray reveals no acute cardio pulmonary process. EKG reveals no acute ST or T wave abnormalities. Echocardiogram reveals preserved left ventricular systolic function. No significant valvular abnormalities. No pulmonary hypertension. Troponins are negative 3. ProBNP 81. White count 20.5. Hemoglobin 13.2. CO2 21. Creatinine 0.70. She is seen today in consultation on the selective care unit. She is awake and alert in no acute distress. She does have some ongoing dyspnea with exertion. Dry nonproductive cough. No fever or chills. Currently afebrile. Maintaining O2 saturations in the 90s on 2 L/m per nasal cannula. Hemodynamically stable. Chest pain has subsided she states following the nitro paste application. Reevaluated today on 04/12/2018, doing much better, continues to notice significant improvement after updrafts. Hardly any cough no wheezing no shortness of breath no chest pain today. Patient is quite pleased with the improvement over the last 24 hours. CBC showed leukocytosis, basic metabolic profile is relatively normal. Chest x-ray on admission showed no evidence of active cardiopulmonary disease. Objective - Vital Signs Vital signs: Vital Signs Temp 97.2 F L 04/12/18 11:11 Pulse 88 04/12/18 13:14 Resp 18 04/12/18 11:11 BP 162/75 04/12/18 11:11 Pulse Ox 94 L 04/12/18 11:11 Intake & Output 04/11/18 04/12/18 04/12/18 18:59 06:59 18:59 Intake Total 240 740 720 Balance 240 740 720 Weight 109.9 kg Intake: IV 20 0.9 20 Oral 240 720 720 Other: Voiding Method Toilet Toilet # Voids 4 - Exam GENERAL EXAM: Alert, active, comfortable in no apparent distress. HEAD: Normocephalic. EYES: Normal reaction of pupils, equal size. NOSE: Clear with pink turbinates. THROAT: No erythema or exudates. NECK: No masses, no JVD. CHEST: No chest wall deformity. LUNGS: Equal air entry with minimal wheezing on forced expiratory maneuver only otherwise clear breath sounds bilaterally.. CVS: S1 and S2 normal with no audible murmur, regular rhythm. ABDOMEN: No hepatosplenomegaly, normal bowel sounds, no guarding or rigidity. SPINE: No scoliosis or deformity SKIN: No rashes CENTRAL NERVOUS SYSTEM: No focal deficits, tone is normal in all 4 extremities. EXTREMITIES: There is no peripheral edema. No clubbing, no cyanosis. Peripheral pulses are intact. - Labs CBC & Chem 7: 04/12/18 06:14 04/12/18 06:14 Labs: Abnormal Lab Results - Last 24 Hours (Table) 04/11/18 04/12/18 04/12/18 Range/Units 20:43 05:53 06:14 WBC (3.8-10.6) k/uL Neutrophils # (1.3-7.7) k/uL BUN 18 H (7-17) mg/dL Glucose 164 H (74-99) mg/dL POC Glucose (mg/dL) 157 H 168 H (75-99) mg/dL HDL Cholesterol 83 H (40-60) mg/dL 04/12/18 04/12/18 Range/Units 06:14 11:24 WBC 16.9 H (3.8-10.6) k/uL Neutrophils # 15.1 H (1.3-7.7) k/uL BUN (7-17) mg/dL Glucose (74-99) mg/dL POC Glucose (mg/dL) 152 H (75-99) mg/dL HDL Cholesterol (40-60) mg/dL Assessment and Plan Assessment: #1 Atypical chest pain with no evidence of acute coronary syndrome. #2 Acute exacerbation of chronic obstructive pulmonary disease. #3 History of chronic tobacco dependence. #4 Hyperlipidemia. #5 Hypertension. #6 Hypothyroidism. #7 Osteoarthritis. Recommendation: Continue present treatment for her COPD, patient seems to be responding well to the treatment, however the patient could be considered for discharge home in the next 24 hours. And she could have follow-up with Dr. Longoria in one week. Patient will be discharged home on her usual meds, including albuterol with Atrovent updrafts, Symbicort or Advair, and prednisone 30 mg tapered over 21 days. Time with Patient: Less than 30
--- NOTE | 2018-04-12 15:26 | P.PN ---
Subjective Progress Note Date: 04/12/18 This is a pleasant 68-year-old female with known history of COPD, hypertension, hyperlipidemia, hypothyroidism, prior history of smoking, who presented to the hospital with symptoms of chest pressure and heaviness, worsening shortness of breath, and fever. She states that initially she felt a discomfort in her lower back area and generally just not feeling well. She checked her temperature at home which came back to be 99, subsequent temperature she checked was 102. She also states that she's been progressively more short of breath at home, positive orthopnea, and also she has noticed recently to have peripheral edema which appears to be new for her. For all of the above reasons she came to the emergency room for further evaluation. Approximately 2 months ago, she states that she went to see her lung doctor, she felt as though she may have pneumonia, he started her on steroids, which she states she has been off of for a month now. Chest x-ray on admission did not reveal any active cardiopulmonary disease. EKG shows a normal sinus rhythm with no acute changes. Subsequent EKG performed this morning shows normal sinus rhythm with no acute changes. Blood pressure on arrival here 146/84, heart rate in the 90s, 94% on room air. Temperature on arrival 99.7. This morning's temperature 96.5, 99/60 blood pressure, 94% on 2 L of oxygen. White blood cell count 20.5, hemoglobin 13.2, platelet count 308. Sodium 133, potassium 4.7, BUN 13, creatinine 0.7. Magnesium 1.8. Troponins 0.012, 0.012. UA trace of ketones, small amount of leukocyte Estrace. At the time of my examination this morning, patient denies any chest pressure or heaviness, she still complains of feeling mildly short of breath. 04/12/2018 Patient seen and examined this morning, echo showed a normal left ventricular systolic function. BNP level was normal. Hemodynamically she is stable today. No further fevers. We will follow along with you now on an as-needed basis only please don't hesitate to call with any questions. Objective - Vital Signs Vital signs: Vital Signs Temp 97.2 F L 04/12/18 11:11 Pulse 88 04/12/18 13:14 Resp 18 04/12/18 11:11 BP 162/75 04/12/18 11:11 Pulse Ox 94 L 04/12/18 11:11 Intake & Output 04/11/18 04/12/18 04/12/18 18:59 06:59 18:59 Intake Total 240 740 960 Balance 240 740 960 Weight 109.9 kg Intake: IV 20 240 0.9 20 240 Oral 240 720 720 Other: Voiding Method Toilet Toilet # Voids 4 - Exam PHYSICAL EXAMINATION: GENERAL: 68 patient female in no acute distress at the time of my examination HEENT: Head is atraumatic, normocephalic. Pupils equal, round. Sclera anicteric. Conjunctiva are clear. Mucous membranes of the mouth are moist. Neck is supple. There is elevated jugular venous pressure. No carotid bruit is heard. HEART EXAMINATION: Heart S1, S2 normal. No murmur or gallop heard. CHEST EXAMINATION: Lungs are clear with diminished air entry to bilateral bases. ABDOMEN: Soft, nontender. Bowel sounds are heard. No organomegaly noted. EXTREMITIES: 2+ peripheral pulses with trace evidence of peripheral edema and no calf tenderness noted. NEUROLOGIC patient is awake, alert and oriented ?-3. - Labs CBC & Chem 7: 04/12/18 06:14 04/12/18 06:14 Labs: Abnormal Lab Results - Last 24 Hours (Table) 04/11/18 04/12/18 04/12/18 Range/Units 20:43 05:53 06:14 WBC (3.8-10.6) k/uL Neutrophils # (1.3-7.7) k/uL BUN 18 H (7-17) mg/dL Glucose 164 H (74-99) mg/dL POC Glucose (mg/dL) 157 H 168 H (75-99) mg/dL HDL Cholesterol 83 H (40-60) mg/dL 04/12/18 04/12/18 Range/Units 06:14 11:24 WBC 16.9 H (3.8-10.6) k/uL Neutrophils # 15.1 H (1.3-7.7) k/uL BUN (7-17) mg/dL Glucose (74-99) mg/dL POC Glucose (mg/dL) 152 H (75-99) mg/dL HDL Cholesterol (40-60) mg/dL Assessment and Plan Plan: Assessment and plan #1 symptoms of chest heaviness with associated shortness of breath, atypical features for ACS. EKG shows normal sinus rhythm with no acute changes. Troponins are negative 2. #2 fever of 102 prior to arrival, temperature 99.0. With elevated white blood cell count. No clear-cut evidence of UTI. Rule out possible pneumonia. #3 COPD with a possible exacerbation #4 hypertension #5 hyperlipidemia #6 prior history of smoking #7Hypothyroidism Plan Echocardiogram with Doppler study revealed normal left ventricular systolic function, BNP level was normal. From cardiology's perspective, we'll follow this patient with you now on an as-needed basis only, please don't hesitate to call with any questions. DNP note has been reviewed, I agree with a documented findings and plan of care. Patient was seen and examined.
[2018-04-12 20:05] LABS: Glucose,Whole Blood 167 mg/dL (75-99)
[2018-04-12] MEDS: MONTELUKAST 10 MG TAB PO SCH (20:18)
[2018-04-12] MEDS: ATORVASTATIN 20 MG TAB PO SCH (20:18)
[2018-04-13] MEDS: IPRATROPIUM-ALBUTEROL 3 ML NEB INHALATION SCH ×4 (00:10→11:10)
--- NOTE | 2018-04-13 00:34 | P.PN ---
Subjective Progress Note Date: 04/12/18 Principal diagnosis: Acute COPD exacerbation Patient is a 68-year-old female with a known history of COPD/asthma, hypertension, hyperlipidemia, hypothyroidism and osteoarthritis came to ER with complaints of shortness of breath and chest pain at the right lower chest and tightness. Patient also says that she had a temperature up to 102. Patient does have cough without sputum production. No recent illnesses. No sick contacts at home. Patient also noticed some lower extremity swelling. Denied any recent illnesses. Chest x-ray showed no acute cardio pulmonary process. UA negative. EKG showed normal sinus rhythm. No acute ST-T wave changes. 2-D echo Cardizem showed normal EF. No wall motion abnormalities. BNP 81 Troponin 3 negative WBC 20.5 on admission. Patient is being treated for acute COPD exacerbation and is currently breathing status is improving. Patient is not on home oxygen. 04/12/2018 Patient's breathing status is much improved now. Otherwise no complaints of chest pain. No nausea vomiting or abdominal pain. No acute overnight issues. All other review of systems negative except the above. Leukocytosis improved. WBC count 16.5 today Chest x-ray showed no acute cardio pulmonary process on admission Current medications reviewed. Objective - Vital Signs Vital signs: Vital Signs Temp 98.2 F 04/12/18 20:10 Pulse 86 04/12/18 20:17 Resp 18 04/12/18 20:10 BP 116/89 04/12/18 20:10 Pulse Ox 95 04/12/18 20:10 Intake & Output 04/12/18 04/12/18 04/13/18 06:59 18:59 06:59 Intake Total 740 1200 Balance 740 1200 Weight 109.9 kg Intake: IV 20 240 0.9 20 240 Oral 720 960 Other: Voiding Method Toilet Toilet Toilet # Voids 4 - Exam PHYSICAL EXAMINATION: Patient is lying in the bed comfortably, no acute distress, awake alert and oriented.. HEENT: Normocephalic. Neck is supple. Pupils reactive. Nostrils clear. Oral cavity is moist. Ears reveal no drainage. Neck reveals no JVD, carotid bruits, or thyromegaly. CHEST EXAMINATION: Trachea is central. Symmetrical expansion. Bilateral diminished air entry with expiratory wheezing. No rhonchi or crackles. CARDIAC: Normal S1, S2 with no gallops. No murmurs ABDOMEN: Soft. Bowel sounds normal. No organomegaly. No abdominal bruits. Extremities: reveal no edema. No clubbing or cyanosis Neurologically awake, alert, oriented x3 with well-coordinated movements. No focal deficits noted Skin: No rash or skin lesions. Psychiatric: Coperative. Nonsuicidal Musculoskeletal: No joint swelling or deformity. Normal range of motion. - Labs CBC & Chem 7: 04/12/18 06:14 04/12/18 06:14 Labs: Abnormal Lab Results - Last 24 Hours (Table) 04/12/18 04/12/18 04/12/18 Range/Units 05:53 06:14 06:14 WBC 16.9 H (3.8-10.6) k/uL Neutrophils # 15.1 H (1.3-7.7) k/uL BUN 18 H (7-17) mg/dL Glucose 164 H (74-99) mg/dL POC Glucose (mg/dL) 168 H (75-99) mg/dL HDL Cholesterol 83 H (40-60) mg/dL 04/12/18 04/12/18 Range/Units 11:24 20:04 WBC (3.8-10.6) k/uL Neutrophils # (1.3-7.7) k/uL BUN (7-17) mg/dL Glucose (74-99) mg/dL POC Glucose (mg/dL) 152 H 167 H (75-99) mg/dL HDL Cholesterol (40-60) mg/dL Assessment and Plan Assessment: Shortness of breath due to acute COPD exacerbation Chest pain/pressure. Ruled out ACS. Serial EKG and troponin negative. BNP not elevated. D-dimer is negative. Fever 102 at home and currently T-max is 99.7 on admission. Chest x-ray and UA negative. Leukocytosis 20.5 without evidence of infection so far. Hypertension Hyperlipidemia Hypothyroidism Osteoarthritis Morbid obesity with BMI 41.1 History of smoking History of migraine headaches DVT prophylaxis Plan: Patient will be continued on Solu-Medrol IV and DuoNeb's. Continue with home medications including blood pressure medications and telemetry monitoring. Cardiology and pulmonary is on board. Will follow-up repeat CBC and BMP tomorrow. Further recommendations based on the clinical course. Prognosis is guarded with multiple medical problems and comorbid conditions. Time with Patient: Greater than 30
[2018-04-13 05:49] LABS: Glucose,Whole Blood 165 mg/dL (75-99)
[2018-04-13] MEDS: NITROGLYCERIN OINT 1 INCH/GM PACKET TOPICAL SCH ×2 (06:32→12:01)
[2018-04-13] MEDS: LEVOTHYROXINE 50 MCG TAB PO SCH (06:59)
[2018-04-13] MEDS: INSULIN ASPART 100 UNIT/ML 1 ML 10 ML VIAL SQ SCH ×2 (06:59→12:19)
[2018-04-13] MEDS: methylPREDNISolone SOD SUCCI 40 MG/ML 1 ML VIAL IV SCH ×2 (06:59→12:21)
[2018-04-13] MEDS: SYMBICORT 160-4.5 MCG INHALER INHALATION SCH (08:00)
[2018-04-13 08:46] VITALS: RESP 20
[2018-04-13] MEDS: HEPARIN SODIUM,PORCINE 5,000 UNIT/ML 1 ML VIAL SQ SCH (09:47)
[2018-04-13] MEDS: ASCORBIC ACID 500 MG TAB PO SCH (09:48)
[2018-04-13] MEDS: CALCIUM CARBONATE 500 MG CHEWABLE PO SCH (09:48)
[2018-04-13] MEDS: ASPIRIN 325 MG TAB PO SCH (09:48)
[2018-04-13] MEDS: CHOLECALCIFEROL 1,000 UNIT TAB PO SCH (09:48)
[2018-04-13] MEDS: FUROSEMIDE 20 MG TAB PO SCH (09:48)
[2018-04-13] MEDS: LISINOPRIL 10 MG TAB PO SCH (09:49)
[2018-04-13] MEDS: LACTOBACILLUS ACIDOPH & BULGAR 1 EACH PACKET PO SCH (09:49)
[2018-04-13] MEDS: MAGNESIUM OXIDE 400 MG TAB PO SCH (09:50)
[2018-04-13] MEDS: MULTIVITAMINS, THERA 1 EACH TAB PO SCH (09:52)
[2018-04-13 11:43] VITALS: BP 132/78; PULSE 79; TEMP 97.8
[2018-04-13 11:48] LABS: Glucose,Whole Blood 126 mg/dL (75-99)
[2018-04-13] MEDS: CO Q-10 100MG PO SCH (12:01)
[2018-04-13] MEDS: OMEGA 3 PO SCH (12:01)
--- NOTE | 2018-04-13 12:28 | P.DS ---
Providers Date of admission: 04/13/18 08:21 Expected date of discharge: 04/13/18 Attending physician: Lynette Freeman Consults: 04/11/18 00:05 Consult Physician Urgent Consulting Provider: [facility] Consult Reason/Comments: chest pain Do you want consulting provider notified?: Yes, Notify in am Primary care physician: Devang Driver [facility] [place] [facility] Course: Discharge diagnosis Shortness of breath due to acute COPD exacerbation Chest pain/pressure. Ruled out ACS. Serial EKG and troponin negative. BNP not elevated. D-dimer is negative. Fever 102 at home and currently T-max is 99.7 on admission. Chest x-ray and UA negative. Leukocytosis 20.5 without evidence of infection so far. Improving without antibiotics. Hypertension Hyperlipidemia Hypothyroidism Osteoarthritis Morbid obesity with BMI 41.1 History of smoking History of migraine headaches DVT prophylaxis Hospital course Patient is a 68-year-old female with a known history of COPD/asthma, hypertension, hyperlipidemia, hypothyroidism and osteoarthritis came to ER with complaints of shortness of breath and chest pain at the right lower chest and tightness. Patient also says that she had a temperature up to 102. Patient does have cough without sputum production. No recent illnesses. No sick contacts at home. Patient also noticed some lower extremity swelling. Denied any recent illnesses. Chest x-ray showed no acute cardio pulmonary process. UA negative. EKG showed normal sinus rhythm. No acute ST-T wave changes. 2-D echo Cardizem showed normal EF. No wall motion abnormalities. BNP 81 Troponin 3 negative WBC 20.5 on admission. Patient is being treated for acute COPD exacerbation and is currently breathing status is improving. Patient is not on home oxygen. 04/12/2018 Patient's breathing status is much improved now. Otherwise no complaints of chest pain. No nausea vomiting or abdominal pain. No acute overnight issues. All other review of systems negative except the above. Leukocytosis improved. WBC count 16.5 today Chest x-ray showed no acute cardio pulmonary process on admission 04/13/2018 Patient denied any complaints of chest pain or shortness of breath. Breathing status is much improved. Patient is able to ambulate without much short of breath. Otherwise patient does require home oxygen and is desaturating to 88% with walking. Patient be continued on tapering dose of steroids and breathing treatments at home recommended to follow up with pulmonary clinic as an outpatient. Plan: Patient was continued on Solu-Medrol IV and DuoNeb's. Continue with home medications including blood pressure medications and telemetry monitoring. Cardiology and pulmonary has seen the patient. 2-D echocardiogram showed normal ejection fraction. Patient did improve clinically with elbow management Patient is otherwise stable to be discharged home. PHYSICAL EXAMINATION: Patient is lying in the bed comfortably, no acute distress, awake alert and oriented.. HEENT: Normocephalic. Neck is supple. Pupils reactive. Nostrils clear. Oral cavity is moist. Ears reveal no drainage. Neck reveals no JVD, carotid bruits, or thyromegaly. CHEST EXAMINATION: Trachea is central. Symmetrical expansion. Lung vanegas clear to auscultation and percussion. CARDIAC: Normal S1, S2 with no gallops. No murmurs ABDOMEN: Soft. Bowel sounds normal. No organomegaly. No abdominal bruits. Extremities: reveal no edema. No clubbing or cyanosis Neurologically awake, alert, oriented x3 with well-coordinated movements. No focal deficits noted Skin: No rash or skin lesions. Psychiatric: Coperative. Nonsuicidal Musculoskeletal: No joint swelling or deformity. Normal range of motion. Vital Signs - 24 hr 04/12/18 04/12/18 04/12/18 12:59 13:14 15:47 Temperature 97.0 F L Pulse Rate 84 88 Pulse Rate [ 83 Pulse Oximetery ] Respiratory 18 Rate Blood Pressure 130/71 [Left Arm] O2 Sat by Pulse 95 Oximetry 04/12/18 04/12/18 04/12/18 16:36 16:48 20:06 Temperature Pulse Rate 82 86 86 Pulse Rate [ Pulse Oximetery ] Respiratory Rate Blood Pressure [Left Arm] O2 Sat by Pulse Oximetry 04/12/18 04/12/18 04/13/18 20:10 20:17 00:10 Temperature 98.2 F 97.5 F L Pulse Rate 86 76 Pulse Rate [ 94 81 Pulse Oximetery ] Respiratory 18 19 Rate Blood Pressure 116/89 114/65 [Left Arm] O2 Sat by Pulse 95 96 Oximetry 04/13/18 04/13/18 04/13/18 00:23 03:30 03:59 Temperature 97.8 F Pulse Rate 80 80 Pulse Rate [ 83 Pulse Oximetery ] Respiratory 19 Rate Blood Pressure 156/80 [Left Arm] O2 Sat by Pulse 94 L Oximetry 04/13/18 04/13/18 04/13/18 08:00 08:04 08:17 Temperature Pulse Rate 76 76 Pulse Rate [ Pulse Oximetery ] Respiratory 20 Rate Blood Pressure [Left Arm] O2 Sat by Pulse Oximetry 04/13/18 04/13/18 04/13/18 08:42 08:50 11:14 Temperature 96.8 F L Pulse Rate 72 Pulse Rate [ 92 92 Pulse Oximetery ] Respiratory 20 20 Rate Blood Pressure 129/68 [Left Arm] O2 Sat by Pulse 95 Oximetry 04/13/18 04/13/18 11:24 11:41 Temperature 97.8 F Pulse Rate 76 Pulse Rate [ 79 Pulse Oximetery ] Respiratory 20 Rate Blood Pressure 132/78 [Left Arm] O2 Sat by Pulse 93 L Oximetry Patient Condition at Discharge: Stable Plan - Discharge Summary New Discharge Prescriptions: New Ipratropium-Albuterol Nebulize [Duoneb 0.5 mg-3 mg/3 ml Soln] 3 ml INHALATION RT-Q6H #60 ampul.neb predniSONE See Taper PO DAILY 9 Days #21 tab Continue Montelukast [Singulair] 10 mg PO HS Lisinopril [Zestril] 10 mg PO QAM Levothyroxine Sodium [Synthroid] 50 mcg PO QAM Calcium Carbonate [Calcium] 1,200 mg PO DAILY Multivit with Calcium,Iron,Min [Women's Daily Multivitamin] 1 tab PO DAILY Ascorbic Acid [Vitamin C] 500 mg PO DAILY Fluticasone/Salmeterol [Advair Hfa 230-21 Mcg Inhaler] 2 puff INHALATION RT- BID Furosemide [Lasix] 20 mg PO DAILY Magnesium 200 mg PO DAILY [place]-3 Fatty Acids/Fish Oil [Fish Oil 1,000 mg Softgel] 1 cap PO DAILY Naproxen Sodium [Aleve] 220 mg PO HS PRN PRN Reason: Pain L.acidoph,Paracasei, B.lactis [Probiotic] 1 cap PO DAILY Cholecalciferol [Vitamin D3] 1,000 unit PO DAILY Rosuvastatin Calcium [Crestor] 10 mg PO HS Ubidecarenone [Co Q-10] 100 mg PO DAILY Discharge Medication List Levothyroxine Sodium [Synthroid] 50 mcg PO QAM 04/10/14 [History] Lisinopril [Zestril] 10 mg PO QAM 04/10/14 [History] Montelukast [Singulair] 10 mg PO HS 04/10/14 [History] Ascorbic Acid [Vitamin C] 500 mg PO DAILY 02/23/16 [History] Calcium Carbonate [Calcium] 1,200 mg PO DAILY 02/23/16 [History] Fluticasone/Salmeterol [Advair Hfa 230-21 Mcg Inhaler] 2 puff INHALATION RT-BID 02/23/16 [History] Multivit with Calcium,Iron,Min [Women's Daily Multivitamin] 1 tab PO DAILY 02/22 [History] Furosemide [Lasix] 20 mg PO DAILY 06/28/16 [History] Magnesium 200 mg PO DAILY 06/28/16 [History] Cholecalciferol [Vitamin D3] 1,000 unit PO DAILY 04/10/18 [History] L.acidoph,Paracasei, B.lactis [Probiotic] 1 cap PO DAILY 04/10/18 [History] Naproxen Sodium [Aleve] 220 mg PO HS PRN 04/10/18 [History] [place]-3 Fatty Acids/Fish Oil [Fish Oil 1,000 mg Softgel] 1 cap PO DAILY [History] Rosuvastatin Calcium [Crestor] 10 mg PO HS 04/10/18 [History] Ubidecarenone [Co Q-10] 100 mg PO DAILY 04/10/18 [History] Ipratropium-Albuterol Nebulize [Duoneb 0.5 mg-3 mg/3 ml Soln] 3 ml INHALATION RT -Q6H #60 ampul.neb 04/13/18 [Rx] predniSONE See Taper PO DAILY 9 Days #21 tab 04/13/18 [Rx] Follow up Appointment(s)/Referral(s): Josh Longoria DO [Doctor of Osteopathic Medicine] - 1 Week Devang Jhaveri MD [Primary Care Provider] - 1-2 days (Office is closed. Please call to schedule appointment) Discharge Disposition: HOME SELF-CARE
--- NOTE | 2018-04-13 13:56 | P.PN ---
Subjective Progress Note Date: 04/13/18 Principal diagnosis: Atypical chest pain, acute exacerbation of chronic obstructive pulmonary disease This a very pleasant 68-year-old female patient who follows with Dr. Jhaveri as her primary care physician. She has a history of hypothyroidism, hypertension, hyperlipidemia, history esophageal reflux disease, osteoarthritis. She also has a history of chronic obstructive pulmonary disease and is a former smoker. She follows up with Dr. Longoria in our office for the same. She is on Singulair, Advair, albuterol in the outpatient setting. She presented here to the emergency room last evening with complaints of chest pressure, heaviness and shortness of breath. She also states she had a temperature up to 102. Occasional cough nonproductive. She also had some lower extremity peripheral edema. She was at rest when the symptoms occurred. No previous history of chest pain or coronary artery disease. Chest x-ray reveals no acute cardio pulmonary process. EKG reveals no acute ST or T wave abnormalities. Echocardiogram reveals preserved left ventricular systolic function. No significant valvular abnormalities. No pulmonary hypertension. Troponins are negative 3. ProBNP 81. White count 20.5. Hemoglobin 13.2. CO2 21. Creatinine 0.70. She is seen today in consultation on the selective care unit. She is awake and alert in no acute distress. She does have some ongoing dyspnea with exertion. Dry nonproductive cough. No fever or chills. Currently afebrile. Maintaining O2 saturations in the 90s on 2 L/m per nasal cannula. Hemodynamically stable. Chest pain has subsided she states following the nitro paste application. Reevaluated today on 04/12/2018, doing much better, continues to notice significant improvement after updrafts. Hardly any cough no wheezing no shortness of breath no chest pain today. Patient is quite pleased with the improvement over the last 24 hours. CBC showed leukocytosis, basic metabolic profile is relatively normal. Chest x-ray on admission showed no evidence of active cardiopulmonary disease. The patient is seen again today 04/13/2018 in follow-up on the selective care unit. She is awake and alert in no acute distress. She's been up ambulating in the hallway without any worsening shortness of breath, cough or congestion. She is nearly back to her baseline. She does desaturate into the mid 80s on room air. She's currently at 93% on 2 L/m per nasal cannula. She's been afebrile. Hemodynamically stable. She is anxious to go home. Objective - Vital Signs Vital signs: Vital Signs Temp 97.8 F 04/13/18 11:41 Pulse 79 04/13/18 11:41 Resp 20 04/13/18 11:41 BP 132/78 04/13/18 11:41 Pulse Ox 93 L 04/13/18 11:41 Intake & Output 04/12/18 04/13/18 04/13/18 18:59 06:59 18:59 Intake Total 1200 750 460 Balance 1200 750 460 Weight 110.9 kg Intake: IV 240 30 0.9 240 30 Oral 960 720 460 Other: Voiding Method Toilet Toilet Toilet # Voids 4 - Exam GENERAL EXAM: Alert, active, comfortable in no apparent distress. HEAD: Normocephalic. EYES: Normal reaction of pupils, equal size. NOSE: Clear with pink turbinates. THROAT: No erythema or exudates. NECK: No masses, no JVD. CHEST: No chest wall deformity. LUNGS: Equal air entry with minimal wheezing on forced expiratory maneuver only otherwise clear breath sounds bilaterally. CVS: S1 and S2 normal with no audible murmur, regular rhythm. ABDOMEN: No hepatosplenomegaly, normal bowel sounds, no guarding or rigidity. SPINE: No scoliosis or deformity SKIN: No rashes CENTRAL NERVOUS SYSTEM: No focal deficits, tone is normal in all 4 extremities. EXTREMITIES: There is no peripheral edema. No clubbing, no cyanosis. Peripheral pulses are intact. - Labs CBC & Chem 7: 04/12/18 06:14 04/12/18 06:14 Labs: Abnormal Lab Results - Last 24 Hours (Table) 04/12/18 04/13/18 04/13/18 Range/Units 20:04 05:44 11:45 POC Glucose (mg/dL) 167 H 165 H 126 H (75-99) mg/dL Assessment and Plan Assessment: Impression: #1 Atypical chest pain with no evidence of acute coronary syndrome. #2 Acute exacerbation of chronic obstructive pulmonary disease. #3 History of chronic tobacco dependence. #4 Hyperlipidemia. #5 Hypertension. #6 Hypothyroidism. #7 Osteoarthritis. Plan: The patient was seen and evaluated by Dr. Waller. She is cleared for discharge from the pulmonary standpoint. Home oxygen will be arranged. Home nebulizer will be arranged. She'll follow up with Dr. Longoria in our office in 1-2 weeks' time. She is however encouraged to call sooner with any recurrence of symptoms or any other questions or concerns. I, the cosigning physician, performed a history & physical examination of the patient. Lungs sounds with faint end expiratory wheeze. Maintaining good O2 saturations in the 90s on 2 L/m per nasal cannula. I discussed the assessment and plan of care with my nurse practitioner, Aleksandra Crook. I attest to the above note as dictated by her.
== END 2018-04-13 14:04 | disposition home or self-care (01) | DRG 191 ==
LOC: EC 20:37 → 6SEL 04-11 00:42 → OBSVTOIN 04-13 08:21
PROVIDERS: ADMIT Internal Medicine; ATTEND Internal Medicine
DX: J44.1 Chronic obstructive pulmonary disease with (acute) exacerbation (principal); Z68.41 Body mass index [BMI] 40.0-44.9, adult; E66.01 Morbid (severe) obesity due to excess calories; D72.829 Elevated white blood cell count, unspecified; E03.9 Hypothyroidism, unspecified; E78.5 Hyperlipidemia, unspecified; I10 Essential (primary) hypertension; K21.9 Gastro-esophageal reflux disease without esophagitis; M19.90 Unspecified osteoarthritis, unspecified site; R09.02 Hypoxemia; G43.909 Migraine, unspecified, not intractable, without status migrainosus; R07.89 Other chest pain; Z79.51 Long term (current) use of inhaled steroids; Z79.890 Hormone replacement therapy; Z79.899 Other long term (current) drug therapy; Z88.5 Allergy status to narcotic agent; Z88.0 Allergy status to penicillin; Z88.2 Allergy status to sulfonamides; Z88.8 Allergy status to other drugs, medicaments and biological substances; Z87.891 Personal history of nicotine dependence; Z90.49 Acquired absence of other specified parts of digestive tract; Z82.49 Family history of ischemic heart disease and other diseases of the circulatory system; Z82.0 Family history of epilepsy and other diseases of the nervous system
CPT/HCPCS: 36415; 71046; 80048; 80053; 80061; 81001; 82550; 82553; 83735; 83880; 84484; 85025; 85379; 85610; 85730; 93005; 93306; 94640; 96374; 99285

== ENCOUNTER → 2020-01-25 | Outpatient (CLI) | payer MEDICARE ==
--- NOTE | 2020-01-25 16:22 | CT ---
EXAMINATION TYPE: CT angio chest DATE OF EXAM: 01/25/2020 COMPARISON: Radiograph 08/31/2018 HISTORY: 70-year-old female SOB, COPD TECHNIQUE: Contiguous axial scanning of the chest performed with IV Contrast, patient injected with 1 00 mL of Isovue 370. Coronal/sagittal MIP reconstructions performed. CT DLP: 562 mGycm Automated exposure control for dose reduction was used. FINDINGS: The heart is borderline enlarged without pericardial effusion. Scattered coronary artery calcificatio ns are present. Aorta normal caliber with mild atherosclerotic arch calcifications conventional arch vessel branching anatomy. No thoracic lymphadenopathy by CT size criteria. Satisfactory opacification of the pulmonary arterial system though it mild breathing motion artifacts . No definite pulmonary embolus is seen. Mild emphysematous change. Mild interstitial prominence throughout. Mild diffuse bronchial wall thick ening. Bands of atelectasis or scar at the inferior lingula. Possible suspicious early 5 mm left apical pulmonary nodule, axial image 26. No consolidation or pleu ral effusion. Visualized upper abdomen shows low-density thickening of the left adrenal gland and small hiatal rashid ia. Bones: Moderate to severe degenerative disc disease lower thoracic spine. IMPRESSION: 1. MILD BREATHING MOTION ARTIFACT. NO DEFINITE PULMONARY EMBOLUS. 2. COPD WITH MILD EMPHYSEMA. 3. 5 MM LEFT APICAL PULMONARY NODULE IS SUSPICIOUS AND WARRANTS A THREE-MONTH FOLLOW-UP CT TO EXCLUDE EARLY LUNG CANCER. THE PATIENT SHOULD NOT BE LOST TO FOLLOW-UP.
== END | disposition home or self-care (01) ==
LOC: RADCTMAIN 15:05
PROVIDERS: ATTEND Internal Medicine Critical Care Medicine
DX: J43.9 Emphysema, unspecified (principal); R91.1 Solitary pulmonary nodule; R06.02 Shortness of breath; Z88.0 Allergy status to penicillin; Z88.5 Allergy status to narcotic agent; Z88.2 Allergy status to sulfonamides; Z88.8 Allergy status to other drugs, medicaments and biological substances
CPT/HCPCS: 82565; 84520; 71275; 36415; Q9967

== ENCOUNTER → 2020-03-26 | Outpatient (CLI) | payer MEDICARE | END | disposition home or self-care (01) | LOC: CPPFTMAIN 13:30 | PROVIDERS: ATTEND Internal Medicine Critical Care Medicine | DX: J44.9 Chronic obstructive pulmonary disease, unspecified (principal); R94.2 Abnormal results of pulmonary function studies | CPT/HCPCS: 94060; 94726; 94729 ==

== ENCOUNTER → 2020-05-19 | Outpatient (CLI) | payer MEDICARE ==
[2020-05-19 11:27] LABS: Potassium 4.5 mmol/L (3.5-5.1)
[2020-05-19 12:13] LABS: HCT 39.1 % (34.0-46.0); HGB 12.4 gm/dL (11.4-16.0); MCH 28.6 pg (25.0-35.0); MCHC 31.7 g/dL (31.0-37.0); MCV 90.2 fL (80.0-100.0); Mean Platelet Volume 7.5; Platelet Count 387 k/uL (150-450); RBC 4.33 m/uL (3.80-5.40); RDW 12.9 % (11.5-15.5); WBC 16.2 k/uL (3.8-10.6)
== END | disposition home or self-care (01) ==
LOC: LABPAT 09:43
PROVIDERS: ATTEND Internal Medicine Cardiovascular Disease
DX: Z01.818 Encounter for other preprocedural examination (principal); R06.02 Shortness of breath
CPT/HCPCS: 80051; 82565; 84443; 84520; 85027

== ENCOUNTER 2020-05-23 07:59 | Day surgery (SDC) | payer MEDICARE ==
[2020-05-21 11:33] VITALS: BMI 42.4
[~2020-05-23 07:59] MED LIST: ALPRAZolam 0.25 MG TAB PO PRN; ALPRAZolam 0.5 MG TAB PO PRN; ASPIRIN 325 MG TAB PO STA; ATORVASTATIN 80 MG TAB PO STA; NITROGLYCERIN SL TABS 0.4 MG TAB SUBLINGUAL PRN; SODIUM CHLORIDE 0.9% 1,000 ML in EMPTY BAG 1 BAG IV ONE
[2020-05-23] MEDS ORDERED: SODIUM CHLORIDE 0.9% 1,000 ML IV ONE (08:15)
[2020-05-23 08:31] VITALS: TEMP 98.2
[2020-05-23 08:48] LABS: Basophils # (A) 0.1 k/uL (0-0.2); Basophils % (A) 0 %; Eosinophils # (A) 0.3 k/uL (0-0.7); Eosinophils % (A) 2 %; HGB 12.6 gm/dL (11.4-16.0); Lymphocytes # (A) 2.7 k/uL (1.0-4.8); Lymphocytes % (A) 15 %; MCHC 32.4 g/dL (31.0-37.0); MCV 89.5 fL (80.0-100.0); Mean Platelet Volume 7.4; Monocytes # (A) 0.8 k/uL (0-1.0); Monocytes % (A) 5 %; Neutrophils # (A) 14.4 k/uL (1.3-7.7); Neutrophils % (A) 78 %; Platelet Count 411 k/uL (150-450); RBC 4.35 m/uL (3.80-5.40); RDW 12.7 % (11.5-15.5); WBC 18.4 k/uL (3.8-10.6)
[2020-05-23] MEDS ORDERED: fentaNYL (PF) 50 MCG/ML 2 ML AMP IV ONE (08:55)
[2020-05-23] MEDS ORDERED: MIDAZOLAM 2 MG/2 ML VIAL IV ONE (08:55)
[2020-05-23] MEDS ORDERED: LIDOCAINE 1% INJ 10MG/ML (20 ML MDV) SQ ONE (08:57)
[2020-05-23] MEDS ORDERED: VERAPAMIL SYRINGE (5 MG/10 ML) INTRAARTER ONE (08:59)
[2020-05-23] MEDS ORDERED: IOPAMIDOL-370 125ML BTL INJ ONE (09:08)
--- NOTE | 2020-05-23 09:25 | P.CARDCATH ---
Date of Procedure: 05/23/20 Preoperative Diagnosis: Shortness of breath and positive stress test Postoperative Diagnosis: Mild coronary artery disease Procedure(s) Performed: Left heart catheterization without left ventriculography Description of Procedure: HISTORY: This is a 70-year-old female with history of hypertension, hypercholesterolemia and COPD was then experiencing increasing shortness of breath. Patient had nuclear stress test which is suggestive of reversible ischemia involving the inferior and inferolateral wall. Patient is advised to have a cardiac catheterization for definitive diagnosis CONSENT:I have discussed the risks, benefits and alternative therapies for the above-mentioned procedure and for both sedation/analgesia as well as necessary blood product administration, if indicated, as they pertain to this patient. The patient has indicated understanding and acceptance of the risks and procedures discussed. PROCEDURE: Patient was brought to the lab in a fasting state. Patient was given some IV sedation. The right wrist is infiltrated with lidocaine and right radial artery was entered using Seldinger technique. A 6-Thai catheter was left in place and selective coronary arteriography was performed. Patient josé miguel erated the procedure well. TR band was applied for hemostasis. No immediate complications were noted and patient was transferred to [facility] in a stable condition Conscious Sedation: Versed 1mg Fentanyl 50 g Duration 18minutes HEMODYNAMICS: The aortic pressure is about 95/70. Left ventricular end- diastolic pressure is about 5-10. There was no gradient across the aortic valve SELECTIVE CORONARY ARTERIOGRAPHY: LEFT MAIN: Long and free of occlusive disease THE LEFT ANTERIOR DESCENDING CORONARY ARTERY:. Mild calcification noted in LAD with mild about 30% stenosis in the proximal portion. The rest of the LAD is free of occlusive disease. THE LEFT CIRCUMFLEX AND IS CORONARY ARTERY: This is a nondominant vessel giving rise to moderate OM branch. Free of any occlusive disease THE RIGHT CORONARY ARTERY:. This is dominant vessel giving rise to PDA and PLV. Free of any significant focal occlusive disease LEFT VENTRICULOGRAPHY: Not performed FINAL IMPRESSION:. Mildly calcified left anterior descending about 30% stenosis in the proximal portion. The rest of the system is free of any significant focal lesions PLAN: Maximum medical therapy and this factor modification PROGNOSIS:Fair.
[2020-05-23 10:21] VITALS: RESP 16
[2020-05-23 16:37] VITALS: BP 127/71; PULSE 74
[2020-05-23] MEDS ORDERED: IPRATROPIUM-ALBUTEROL 3 ML NEB INHALATION SCH (20:00)
== END 2020-05-23 15:20 | disposition home or self-care (01) ==
LOC: CATHCVL 07:59
PROVIDERS: ATTEND Internal Medicine Cardiovascular Disease
DX: I25.10 Atherosclerotic heart disease of native coronary artery without angina pectoris (principal); R06.02 Shortness of breath; R94.39 Abnormal result of other cardiovascular function study; R06.00 Dyspnea, unspecified; R60.0 Localized edema; J44.9 Chronic obstructive pulmonary disease, unspecified; I10 Essential (primary) hypertension; E78.00 Pure hypercholesterolemia, unspecified; E78.5 Hyperlipidemia, unspecified; Z72.0 Tobacco use; Z79.890 Hormone replacement therapy; Z79.51 Long term (current) use of inhaled steroids; Z79.899 Other long term (current) drug therapy; Z79.52 Long term (current) use of systemic steroids; Z88.5 Allergy status to narcotic agent; Z88.0 Allergy status to penicillin; Z88.2 Allergy status to sulfonamides
CPT/HCPCS: 94640; 93458; 85025; C1769; C1894; J2250; J2001; J3010; J1644; Q9967

== ENCOUNTER → 2020-06-10 | Outpatient (CLI) | payer MEDICARE ==
[2020-06-10 11:15] LABS: African American GFR (CKD) >90 (>60 ml/min/1.73 sqM); Blood Urea Nitrogen 17 mg/dL (7-17); Non-African American GFR(CKD) 85 (>60 ml/min/1.73 sqM)
--- NOTE | 2020-06-10 14:12 | CT ---
EXAMINATION TYPE: CT chest w con DATE OF EXAM: 06/10/2020 COMPARISON: CT 01/25/2020, chest x-ray 02/09/2020 HISTORY: Lung nodule CT DLP: 538.80 mGycm Automated exposure control for dose reduction was used. CONTRAST: CT scan of the chest is performed with IV Contrast, patient injected with 100 mL of Isovue 300. FINDINGS: LUNGS: The right hilar mass shows spiculated margins, irregular heterogeneous density with peripheral high attenuation, some central low attenuation and measures approximately 8.9 cm in AP dimension by 6 cm in transverse dimension by 4.5 cm in cephalad to caudal dimension, there are likely postobstruct tessa changes in the right upper lobe, there is emphysema. Indeterminate 5 mm left upper lobe lung nodu le is present on axial image #10 but was present on prior exam of January 2020 and is on changed. Ther e is no pleural effusion or pneumothorax seen. The tracheobronchial tree is patent. MEDIASTINUM: There are no greater than 1 cm hilar or mediastinal lymph nodes. No pericardial effusi on is seen. There are coronary artery calcifications present. AORTA: No additional significant abnormality is seen. OTHER: Subcentimeter low attenuation left adrenal nodules noted. IMPRESSION: Findings likely represent bronchogenic carcinoma
== END | disposition home or self-care (01) ==
LOC: RADCTMAIN 10:40
PROVIDERS: ATTEND Internal Medicine Critical Care Medicine
DX: R91.1 Solitary pulmonary nodule (principal)
CPT/HCPCS: 82565; 84520; 71260; 36415; Q9967

== ENCOUNTER 2020-06-11 12:13 | Day surgery (SDC) | payer MEDICARE ==
[2020-06-10 13:26] VITALS: BMI 41.8
[~2020-06-11 12:13] MED LIST changes: +ALBUTEROL NEB (CONC) 2.5 MG/0.5 ML INHALATION ONE; -ALPRAZolam 0.25 MG TAB PO PRN; -ALPRAZolam 0.5 MG TAB PO PRN; -ASPIRIN 325 MG TAB PO STA; -ATORVASTATIN 80 MG TAB PO STA; +ATROPINE SULFATE 0.4 MG/ML 1 ML VIAL IM ONE; +LACTATED RINGERS 1,000 ML IV SCH; +LIDOCAINE 2% (PF) 20 MG/ML 5 ML VIAL INHALATION ONE; +LIDOCAINE VISCOUS 300 MG/15 ML CUP MUCOUS MEM ONE; -NITROGLYCERIN SL TABS 0.4 MG TAB SUBLINGUAL PRN; +ONDANSETRON 4 MG/2 ML VIAL IVP PRN; +SODIUM CHLORIDE 0.9% 1,000 ML IV SCH; -SODIUM CHLORIDE 0.9% 1,000 ML in EMPTY BAG 1 BAG IV ONE; +fentaNYL (PF) 50 MCG/ML 2 ML AMP IV PRN
[2020-06-11 12:39] VITALS: RESP 18; TEMP 98.5
[2020-06-11] MEDS ORDERED: LIDOCAINE 1% (10MG/ML) FOR IV START INTRADERMA ONE (12:53)
[2020-06-11 13:07] LABS: Glucose,Whole Blood 100 mg/dL (75-99)
[2020-06-11] MEDS ORDERED: GLYCOPYRROLATE 0.2 MG/ML 2 ML VIAL ONE (13:28)
[2020-06-11] MEDS ORDERED: MIDAZOLAM 2 MG/2 ML VIAL ONE (13:28)
[2020-06-11] MEDS ORDERED: KETAMINE 10 MG/ML 20 ML VIAL ONE (13:28)
[2020-06-11] MEDS ORDERED: PROPOFOL 10 MG/ML 20 ML VIAL IV ONE (13:28)
[2020-06-11] MEDS ORDERED: LIDOCAINE 1% INJ 10MG/ML (20 ML MDV) ONE (13:28)
[2020-06-11] MEDS ORDERED: fentaNYL (PF) 50 MCG/ML 2 ML AMP ONE (13:28)
[2020-06-11] MEDS ORDERED: LIDOCAINE 2% INJ 20 MG/ML INTRATRACH ONE (13:49)
[2020-06-11 14:25] VITALS: BP 117/77; PULSE 94
--- NOTE | 2020-06-11 14:35 | XR ---
EXAMINATION TYPE: XR chest 1V DATE OF EXAM: 06/11/2020 COMPARISON: 04/10/2018 INDICATION: Post bronchoscopy TECHNIQUE: Single frontal view of the chest is obtained. FINDINGS: The heart size is normal. The pulmonary vasculature is normal. There is a large consolidation to the periphery of the right midlung. No pneumothorax is evident post bronchoscopy. IMPRESSION: 1. No pneumothorax post bronchoscopy. 2. Large consolidation opacity right midlung
[2020-06-11 15:30] LABS: Appearance,BF Bloody; Nucleated Cells, Body Fluid 200 /uL; RBC, Body Fluid 281000 /uL
[2020-06-11 15:38] LABS: Mononuclear WBC,Body Fluid 3 %; Polynuclear WBC,Body Fluid 97 %; Total Cells Counted,Body Fluid 100
--- NOTE | 2020-06-11 17:14 | PCN ---
PROCEDURE NOTE PULMONARY/CRITICAL CARE PROCEDURE NOTE: PROCEDURE: Bronchoscopy, airway examination, therapeutic lavage, BAL. Endobronchial biopsies right middle lobe, transbronchial biopsies right middle lobe, brushes right middle lobe and washes right middle lobe. PREOPERATIVE DIAGNOSIS: Rule out lung cancer versus infection. POSTOPERATIVE DIAGNOSIS: Rule out lung cancer versus infection. There was informed consent, there was universal timeout. The AUTO MECHANIC APPRENTICE provided general anesthesia. The patient's procedure was done in room #1. UPHOLSTERY CLEANER: Dr. Longoria. After the patient was adequately sedated and being fully monitored, the bronchoscope was inserted through the right nostril. It passed through the right nasopharynx into the oropharynx. The hypopharynx was identified and topicalized. The hypopharyngeal structures, including anterior commissure, true cords, false cords, arytenoids, piriform sinuses, right and left valleculae and epiglottis, all appeared relatively normal. The glottic opening was topicalized. The bronchoscope was pushed through the glottic opening into the trachea. The trachea itself appeared normal. The tracheal cornelio was sharp. The left side was evaluated first after topicalization. The left upper lobe proper and its 2 segments, the lingula and its 2 segments and the left lower lobe and its 4 segments all appeared relatively normal. On the right side, the right upper lobe and its 3 segments was normal. The right lower lobe and its 5 segments also appeared normal. Of note was the fact that there appeared to be mucosal irregularities entering the right middle lobe. This is the area of concern. That area was initially brushed. Then it was biopsied of both endobronchially and transbronchially. Finally, washes were done in this area. The patient tolerated the procedure well. There was a minimal amount of bleeding. The patient was relatively stable throughout the procedure. She did cough quite a bit. There was one time when the saturations did drop but recovered. Multiple biopsies, brushes and washes were done in this area. The patient tolerated the procedure well. The sampling will be sent to the laboratory for analysis. We ensured hemostasis and the bronchoscope was withdrawn. The patient will be recovered. I did speak to the patient's daughter about the findings. There is a chance, that we may have to take the patient back to the operating room for additional biopsies should these not give us an answer. MMODL / IJN: [id number] /
== END 2020-06-11 15:11 | disposition home or self-care (01) ==
LOC: ORWHC2ENDO 12:13
PROVIDERS: ATTEND Internal Medicine Critical Care Medicine
DX: J44.9 Chronic obstructive pulmonary disease, unspecified (principal); R91.1 Solitary pulmonary nodule; J69.0 Pneumonitis due to inhalation of food and vomit; E78.2 Mixed hyperlipidemia; E03.9 Hypothyroidism, unspecified; K21.9 Gastro-esophageal reflux disease without esophagitis; I10 Essential (primary) hypertension; J30.9 Allergic rhinitis, unspecified; Z87.891 Personal history of nicotine dependence; Z90.49 Acquired absence of other specified parts of digestive tract; Z98.890 Other specified postprocedural states; Z79.899 Other long term (current) drug therapy; Z79.52 Long term (current) use of systemic steroids; Z79.890 Hormone replacement therapy; Z79.51 Long term (current) use of inhaled steroids; Z88.0 Allergy status to penicillin; Z88.2 Allergy status to sulfonamides; Z88.5 Allergy status to narcotic agent; Z88.8 Allergy status to other drugs, medicaments and biological substances; Z82.49 Family history of ischemic heart disease and other diseases of the circulatory system; M19.90 Unspecified osteoarthritis, unspecified site
CPT/HCPCS: 31628; 87798 ×3; 87496; 87498; 87529; 88104; 88108; 88305; 89050; 87252; 87502; 87634; 87070; 87205; 87116; 87102; 87206; 71045; 31623; 31624; J2001 ×2; J2250; J0461; J3010; J2704; 31625

== ENCOUNTER 2020-07-07 18:44 | Inpatient (IN) | payer MEDICARE ==
[2020-07-07] MEDS ORDERED: ALBUTEROL HFA INHALER INHALATION PRN (18:54)
[2020-07-07] MEDS ORDERED: ACETAMINOPHEN TAB 500 MG TAB PO STA (18:54)
[2020-07-07] MEDS ORDERED: ALBUTEROL HFA INHALER INHALATION STA (18:54)
--- NOTE | 2020-07-07 18:56 | ED ---
General Adult HPI - General Chief complaint: Shortness of Breath Stated complaint: fever/SOB Time Seen by Provider: 07/07/20 18:54 Source: patient, RN notes reviewed Mode of arrival: ambulatory Limitations: no limitations - History of Present Illness Initial comments: Patient is a pleasant 70-year-old female presenting to emergency Department with complaints of shortness of breath. Onset of symptoms was today. Patient does have associated fever. Patient has had some mild nausea. Patient smells normal. Patient did have pneumonia around 4 weeks ago however was doing well following that. Patient does have history of COPD. Patient does not normally use oxygen however did need it today. - Related Data Home Medications Medication Instructions Recorded Confirmed Levothyroxine Sodium [Synthroid] 50 mcg PO DAILY 04/10/14 07/07/20 Montelukast [Singulair] 10 mg PO HS 04/10/14 07/07/20 Ascorbic Acid [Vitamin C] 500 mg PO DAILY 02/23/16 07/07/20 Calcium Carbonate [Calcium] 1,200 mg PO DAILY 02/23/16 07/07/20 Fluticasone/Salmeterol [Advair Hfa 2 puff INHALATION RT-BID 02/23/16 07/07/20 230-21 Mcg Inhaler] Multivit with Calcium,Iron,Min 1 tab PO DAILY 02/23/16 07/07/20 [Women's Daily Multivitamin] Magnesium 200 mg PO DAILY 06/28/16 07/07/20 Cholecalciferol [Vitamin D3 (25 1,000 unit PO DAILY 04/10/18 07/07/20 Mcg = 1000 Iu)] L.acidoph,Paracasei, B.lactis 1 cap PO DAILY 04/10/18 07/07/20 [Probiotic] Naproxen Sodium [Aleve] 220 mg PO HS PRN 04/10/18 07/07/20 [place]-3 Fatty Acids/Fish Oil [Fish 1 cap PO DAILY 04/10/18 07/07/20 Oil 1,000 mg Softgel] Rosuvastatin Calcium [Crestor] 10 mg PO HS 04/10/18 07/07/20 Ubidecarenone [Co Q-10] 100 mg PO DAILY 04/10/18 07/07/20 Isosorbide Mononitrate [Isosorbide 30 mg PO DAILY 05/21/20 07/07/20 Mononitrate ER] Losartan Potassium [Cozaar] 100 mg PO DAILY 05/21/20 07/07/20 predniSONE 5 mg PO DAILY 05/21/20 07/07/20 Furosemide [Lasix] 40 mg PO DAILY 07/07/20 07/07/20 Ipratropium-Albuterol Nebulize 3 ml INHALATION RT-QID 07/07/20 07/07/20 [Duoneb 0.5 mg-3 mg/3 ml Soln] Omeprazole 20 mg PO DAILY 07/07/20 07/07/20 Spironolactone [Aldactone] 12.5 mg PO DAILY 07/07/20 07/07/20 Allergies Allergy/AdvReac Type Severity Reaction Status Date / Time codeine Allergy Unknown Verified 07/07/20 20:24 Penicillins Allergy Unknown Verified 07/07/20 20:24 pseudoephedrine Allergy Unknown Verified 07/07/20 20:24 [From Actifed] Sulfa (Sulfonamide Allergy Unknown Verified 07/07/20 20:24 Antibiotics) triprolidine [From Actifed] Allergy Unknown Verified 07/07/20 20:24 Review of Systems ROS Statement: Those systems with pertinent positive or pertinent negative responses have been documented in the HPI. ROS Other: All systems not noted in ROS Statement are negative. Constitutional: Reports: fever, chills Eyes: Denies: eye pain ENT: Denies: ear pain Respiratory: Reports: cough, dyspnea Cardiovascular: Denies: chest pain Endocrine: Reports: fatigue Gastrointestinal: Reports: nausea. Denies: abdominal pain Genitourinary: Denies: dysuria Musculoskeletal: Denies: back pain Skin: Denies: rash Neurological: Denies: weakness Past Medical History Past Medical History: Asthma, COPD, GERD/Reflux, Hyperlipidemia, Hypertension, Osteoarthritis (OA), Thyroid Disorder Additional Past Medical History / Comment(s): SOB-using O2 @ 2L [place],emphysema, hx migraines has resolved since menopause History of Any Multi-Drug Resistant Organisms: None Reported Past Surgical History: Appendectomy, Back Surgery, Cholecystectomy, Heart Catheterization, Tonsillectomy Additional Past Surgical History / Comment(s): hearcath 05-23-20 rt wrist access, colonoscopy Past Anesthesia/Blood Transfusion Reactions: No Reported Reaction Past Psychological History: No Psychological Hx Reported Smoking Status: Former smoker Past Alcohol Use History: None Reported Past Drug Use History: None Reported - Past Family History Mother Family Medical History: No Reported History Additional Family Medical History / Comment(s): from alzheimers Father Family Medical History: Congestive Heart Failure (CHF) Additional Family Medical History / Comment(s): valve replacement General Exam Limitations: no limitations General appearance: alert Head exam: Present: normocephalic Eye exam: Present: normal appearance Neck exam: Present: normal inspection Respiratory exam: Present: decreased breath sounds Cardiovascular Exam: Present: tachycardia GI/Abdominal exam: Present: soft. Absent: tenderness Extremities exam: Present: normal inspection. Absent: pedal edema, calf tenderness Neurological exam: Present: alert Psychiatric exam: Present: normal affect, normal mood Skin exam: Present: normal color Course Vital Signs 07/07/20 07/07/20 07/07/20 18:45 19:06 19:08 Temperature 102.4 F H 103.2 F H Pulse Rate 115 H Respiratory 18 20 Rate Blood Pressure 169/70 O2 Sat by Pulse 96 Oximetry 07/07/20 19:18 Temperature Pulse Rate Respiratory Rate Blood Pressure O2 Sat by Pulse 93 L Oximetry EKG Findings - EKG Comments: EKG Findings:: Sinus tachycardia 112. IL 164. QRS 68. QT 322. QTC 439. Normal axis. Septal Q waves. No acute ST change. Medical Decision Making - Medical Decision Making Patient reevaluated and updated. Case was discussed with practitioner Princess, covering for Dr. Ward, who will admit covering for Dr. Jhaveri. Patient does meet sepsis criteria diagnosed at 2100. Blood culture and lactic acid and IV antibiotics have all been ordered. - Lab Data Result diagrams: 07/07/20 19:23 07/07/20 19:23 Lab Results 07/07/20 07/07/20 07/07/20 Range/Units 19:23 19:23 19:23 WBC 22.5 H (3.8-10.6) k/uL RBC 4.32 (3.80-5.40) m/uL Hgb 12.0 (11.4-16.0) gm/dL Hct 37.4 (34.0-46.0) % MCV 86.7 (80.0-100.0) fL MCH 27.9 (25.0-35.0) pg MCHC 32.2 (31.0-37.0) g/dL RDW 14.3 (11.5-15.5) % Plt Count 425 (150-450) k/uL MPV 7.3 Neutrophils % 88 % Lymphocytes % 8 % Monocytes % 3 % Eosinophils % 1 % Basophils % 0 % Neutrophils # 19.7 H (1.3-7.7) k/uL Lymphocytes # 1.9 (1.0-4.8) k/uL Monocytes # 0.6 (0-1.0) k/uL Eosinophils # 0.1 (0-0.7) k/uL Basophils # 0.0 (0-0.2) k/uL PT 10.2 (9.0-12.0) sec INR 1.0 (<1.2) APTT 24.0 (22.0-30.0) sec Sodium 134 L (137-145) mmol/L Potassium 5.6 H (3.5-5.1) mmol/L Chloride 100 (98-107) mmol/L Carbon Dioxide 25 (22-30) mmol/L Anion Gap 9 mmol/L BUN 23 H (7-17) mg/dL Creatinine 0.66 (0.52-1.04) mg/dL Est GFR (CKD-EPI)AfAm >90 (>60 ml/min/1.73 sqM) Est GFR (CKD-EPI)NonAf 89 (>60 ml/min/1.73 sqM) Glucose 106 H (74-99) mg/dL Plasma Lactic Acid Yvan (0.7-2.0) mmol/L Calcium 9.6 (8.4-10.2) mg/dL Magnesium 1.9 (1.6-2.3) mg/dL Total Bilirubin 0.8 (0.2-1.3) mg/dL AST 32 (14-36) U/L ALT 18 (4-34) U/L Alkaline Phosphatase 100 (38-126) U/L Lactate Dehydrogenase 823 H (313-618) U/L C-Reactive Protein 44.8 H (<10.0) mg/L Total Protein 7.6 (6.3-8.2) g/dL Albumin 4.2 (3.5-5.0) g/dL Coronavirus (PCR) (Not Detectd) Influenza Type A RNA (Not Detectd) Influenza Type B (PCR) (Not Detectd) 07/07/20 07/07/20 Range/Units 19:23 19:23 WBC (3.8-10.6) k/uL RBC (3.80-5.40) m/uL Hgb (11.4-16.0) gm/dL Hct (34.0-46.0) % MCV (80.0-100.0) fL MCH (25.0-35.0) pg MCHC (31.0-37.0) g/dL RDW (11.5-15.5) % Plt Count (150-450) k/uL MPV Neutrophils % % Lymphocytes % % Monocytes % % Eosinophils % % Basophils % % Neutrophils # (1.3-7.7) k/uL Lymphocytes # (1.0-4.8) k/uL Monocytes # (0-1.0) k/uL Eosinophils # (0-0.7) k/uL Basophils # (0-0.2) k/uL PT (9.0-12.0) sec INR (<1.2) APTT (22.0-30.0) sec Sodium (137-145) mmol/L Potassium (3.5-5.1) mmol/L Chloride (98-107) mmol/L Carbon Dioxide (22-30) mmol/L Anion Gap mmol/L BUN (7-17) mg/dL Creatinine (0.52-1.04) mg/dL Est GFR (CKD-EPI)AfAm (>60 ml/min/1.73 sqM) Est GFR (CKD-EPI)NonAf (>60 ml/min/1.73 sqM) Glucose (74-99) mg/dL Plasma Lactic Acid Yvan 1.4 (0.7-2.0) mmol/L Calcium (8.4-10.2) mg/dL Magnesium (1.6-2.3) mg/dL Total Bilirubin (0.2-1.3) mg/dL AST (14-36) U/L ALT (4-34) U/L Alkaline Phosphatase (38-126) U/L Lactate Dehydrogenase (313-618) U/L C-Reactive Protein (<10.0) mg/L Total Protein (6.3-8.2) g/dL Albumin (3.5-5.0) g/dL Coronavirus (PCR) Not Detected (Not Detectd) Influenza Type A RNA Not Detected (Not Detectd) Influenza Type B (PCR) Not Detected (Not Detectd) - Radiology Data Radiology results: image reviewed (Chest x-ray shows right lower lobe pneumonia. Somewhat change of pattern compared to previous. More diffuse today.) Critical Care Time Critical Care Time: Yes Total Critical Care Time: 32 Disposition Clinical Impression: Pneumonia, Sepsis Disposition: ADMITTED IP TO THIS [facility] Condition: Serious Is patient prescribed a controlled substance at d/c from ED?: No Referrals: Devang Jhaveri MD [Primary Care Provider] - 1-2 days Decision Time: 21:04
--- NOTE | 2020-07-07 20:05 | XR ---
EXAMINATION TYPE: XR chest 1V portable DATE OF EXAM: 07/07/2020 COMPARISON: 06/11/2020 HISTORY: Fever TECHNIQUE: Single view FINDINGS: There is some airspace infiltrate in the right lower lobe. There is no gross heart failure. Heart is probably enlarged. There are no hilar masses. There is no definite pleural effusion. IMPRESSION: There is right lower lobe pneumonia. There is a changing pattern of the pneumonia compare d to old exam. Infiltrate is more diffuse on today's exam. No heart failure seen.
[2020-07-07 20:17] LABS: Basophils % (A) 0 %; Eosinophils # (A) 0.1 k/uL (0-0.7); Eosinophils % (A) 1 %; HCT 37.4 % (34.0-46.0); Lymphocytes # (A) 1.9 k/uL (1.0-4.8); Lymphocytes % (A) 8 %; MCH 27.9 pg (25.0-35.0); MCHC 32.2 g/dL (31.0-37.0); MCV 86.7 fL (80.0-100.0); Mean Platelet Volume 7.3; Monocytes # (A) 0.6 k/uL (0-1.0); Monocytes % (A) 3 %; Neutrophils # (A) 19.7 k/uL (1.3-7.7); Neutrophils % (A) 88 %; Platelet Count 425 k/uL (150-450); RBC 4.32 m/uL (3.80-5.40); RDW 14.3 % (11.5-15.5); WBC 22.5 k/uL (3.8-10.6)
[2020-07-07 20:32] LABS: ALT 18 U/L (4-34); AST 32 U/L (14-36); African American GFR (CKD) >90 (>60 ml/min/1.73 sqM); Albumin 4.2 g/dL (3.5-5.0); Alkaline Phosphatase 100 U/L (38-126); Anion Gap 9 mmol/L; Blood Urea Nitrogen 23 mg/dL (7-17); C Reactive Protein 44.8 mg/L (<10.0); Calcium 9.6 mg/dL (8.4-10.2); Carbon Dioxide 25 mmol/L (22-30); Chloride 100 mmol/L (98-107); Glucose 106 mg/dL (74-99); LDH 823 U/L (313-618); Magnesium 1.9 mg/dL (1.6-2.3); Non-African American GFR(CKD) 89 (>60 ml/min/1.73 sqM); Potassium 5.6 mmol/L (3.5-5.1); Sodium 134 mmol/L (137-145); Total Bilirubin 0.8 mg/dL (0.2-1.3); Total Protein 7.6 g/dL (6.3-8.2)
[2020-07-07 20:47] LABS: Prothrombin Time 10.2 sec (9.0-12.0)
[2020-07-07] MEDS ORDERED: LEVOFLOXACIN 750MG-D5W PMX 750 MG in DEXTROSE/WATER 1 150ML.BAG IVPB STA (20:54)
[2020-07-07 20:59] LABS: SARS-CoV-2 RNA Rapid Abbott Not Detected (Not Detectd)
[2020-07-07] MEDS ORDERED: PNEUMONIA PROTOCOL UTILIZED 1 EACH MISC PO PRN (21:04)
[2020-07-07] MEDS: IPRATROPIUM-ALBUTEROL 3 ML NEB INHALATION PRN (22:22)
[2020-07-07] MEDS: metroNIDAZOLE-NS PMX 500 MG in SALINE 1 100ML.BAG IVPB SCH (23:00)
[2020-07-07] MEDS: SODIUM CHLORIDE 0.9% 1,000 ML IV SCH (23:00)
[2020-07-08] MEDS ORDERED: ALBUTEROL HFA INHALER INHALATION SCH (02:00)
[2020-07-08 03:05] LABS: Ferritin 136.1 ng/mL (10.0-291.0)
[2020-07-08] MEDS: ACETAMINOPHEN TAB 500 MG TAB PO PRN ×2 (04:20→09:09)
[2020-07-08] MEDS: metroNIDAZOLE-NS PMX 500 MG in SALINE 1 100ML.BAG IVPB SCH (07:58)
[2020-07-08] MEDS: IPRATROPIUM-ALBUTEROL 3 ML NEB INHALATION SCH ×4 (08:00→18:03)
[2020-07-08] MEDS: SODIUM CHLORIDE 0.9% 1,000 ML IV SCH ×2 (08:02→17:13)
[2020-07-08] MEDS: CALCIUM CARBONATE 500 MG CHEWABLE PO SCH (08:57)
[2020-07-08] MEDS: ISOSORBIDE MONONITRATE ER 30 MG TAB.ER.24H PO SCH (08:57)
[2020-07-08] MEDS: CHOLECALCIFEROL 1,000 UNIT TAB PO SCH (08:58)
[2020-07-08] MEDS: ASCORBIC ACID 500 MG TAB PO SCH (08:59)
[2020-07-08] MEDS: HEPARIN SODIUM,PORCINE 5,000 UNIT/ML 1 ML VIAL SQ SCH ×2 (08:59→20:09)
[2020-07-08] MEDS ORDERED: SPIRONOLACTONE 25 MG TAB PO SCH (09:00)
[2020-07-08] MEDS ORDERED: FAMOTIDINE 20 MG/2 ML VIAL IV SCH (09:00)
[2020-07-08] MEDS: LEVOTHYROXINE 50 MCG TAB PO SCH (09:00)
[2020-07-08] MEDS ORDERED: LOSARTAN 50 MG TAB PO SCH (09:00)
[2020-07-08] MEDS ORDERED: FUROSEMIDE 40 MG TAB PO SCH (09:00)
--- NOTE | 2020-07-08 09:53 | XR ---
EXAMINATION TYPE: XR chest 1V portable DATE OF EXAM: 07/08/2020 Comparison: 07/07/2020 Clinical History: 70-year-old female pneumonia. Findings: Right heart margin partially obscured by adjacent pleural parenchymal opacity. Greater degree of silh ouetting now as compared to prior exam. Focal opacity right midlung and patchy density at the right b ase are slightly more confluent. Hazy density at the left base likely relating to overlying soft tiss ue. Impression: Right mid and lower lung pneumonia has become more confluent.
[2020-07-08] MEDS ORDERED: traMADol 50 MG TAB PO PRN (11:51)
--- NOTE | 2020-07-08 14:36 | P.HPIM ---
History of Present Illness Patient is a pleasant 70-year-old female came in with complaints of fever shortness of breath cough without any significant sputum production and to bring up much. Patient is found to be septic with the high-grade fevers leukocytosis and right lower lobe pneumonia may be some involvement of middle lobe as well. Patient was treated with levofloxacin 3 weeks ago for aspiration pneumonia. Patient is ALLERGIC to penicillins and patient had angioedema secondary to penicillins. Patient was negative for covid 19 Review of Systems REVIEW OF SYSTEMS: CONSTITUTIONAL: As mentioned in HPI HEENT: No recent visual problems or hearing problems. Denied any sore throat. CARDIOVASCULAR: No chest pain, orthopnea, PND, no palpitations, no syncope. PULMONARY:, no hemoptysis. GASTROINTESTINAL: No diarrhea, no nausea, no vomiting, no abdominal pain. NEUROLOGICAL: No headaches, no weakness, no numbness. HEMATOLOGICAL: Denies any bleeding or petechiae. GENITOURINARY: Denies any burning micturition, frequency, or urgency. MUSCULOSKELETAL/RHEUMATOLOGICAL: Denies any joint pain, swelling, or any muscle pain. ENDOCRINE: Denies any polyuria or polydipsia. The rest of the 14-point review of systems is negative. Past Medical History Past Medical History: Asthma, COPD, GERD/Reflux, Hyperlipidemia, Hypertension, Osteoarthritis (OA), Thyroid Disorder Additional Past Medical History / Comment(s): SOB-using O2 @ 2L [place],emphysema, hx migraines has resolved since menopause History of Any Multi-Drug Resistant Organisms: None Reported Past Surgical History: Appendectomy, Back Surgery, Cholecystectomy, Heart Catheterization, Tonsillectomy Additional Past Surgical History / Comment(s): heartcath 05-23-20, rt wrist access, colonoscopy Past Anesthesia/Blood Transfusion Reactions: No Reported Reaction Past Psychological History: No Psychological Hx Reported Smoking Status: Former smoker Past Alcohol Use History: None Reported Additional Past Alcohol Use History / Comment(s): quit smoking 2008, smoked for 30 yrs- 2 PPD Past Drug Use History: None Reported - Past Family History Mother Family Medical History: No Reported History Additional Family Medical History / Comment(s): from alzheimers Father Family Medical History: Congestive Heart Failure (CHF) Additional Family Medical History / Comment(s): valve replacement Medications and Allergies Home Medications Medication Instructions Recorded Confirmed Type Levothyroxine Sodium [Synthroid] 50 mcg PO DAILY 04/10/14 07/07/20 History Montelukast [Singulair] 10 mg PO HS 04/10/14 07/07/20 History Ascorbic Acid [Vitamin C] 500 mg PO DAILY 02/23/16 07/07/20 History Calcium Carbonate [Calcium] 1,200 mg PO DAILY 02/23/16 07/07/20 History Fluticasone/Salmeterol [Advair Hfa 2 puff INHALATION RT-BID 02/23/16 07/07/20 History 230-21 Mcg Inhaler] Multivit with Calcium,Iron,Min 1 tab PO DAILY 02/23/16 07/07/20 History [Women's Daily Multivitamin] Magnesium 200 mg PO DAILY 06/28/16 07/07/20 History Cholecalciferol [Vitamin D3 (25 1,000 unit PO DAILY 04/10/18 07/07/20 History Mcg = 1000 Iu)] L.acidoph,Paracasei, B.lactis 1 cap PO DAILY 04/10/18 07/07/20 History [Probiotic] Naproxen Sodium [Aleve] 220 mg PO HS PRN 04/10/18 07/07/20 History [place]-3 Fatty Acids/Fish Oil [Fish 1 cap PO DAILY 04/10/18 07/07/20 History Oil 1,000 mg Softgel] Rosuvastatin Calcium [Crestor] 10 mg PO HS 04/10/18 07/07/20 History Ubidecarenone [Co Q-10] 100 mg PO DAILY 04/10/18 07/07/20 History Isosorbide Mononitrate [Isosorbide 30 mg PO DAILY 05/21/20 07/07/20 History Mononitrate ER] Losartan Potassium [Cozaar] 100 mg PO DAILY 05/21/20 07/07/20 History predniSONE 5 mg PO DAILY 05/21/20 07/07/20 History Furosemide [Lasix] 40 mg PO DAILY 07/07/20 07/07/20 History Ipratropium-Albuterol Nebulize 3 ml INHALATION RT-QID 07/07/20 07/07/20 History [Duoneb 0.5 mg-3 mg/3 ml Soln] Omeprazole 20 mg PO DAILY 07/07/20 07/07/20 History Spironolactone [Aldactone] 12.5 mg PO DAILY 07/07/20 07/07/20 History Allergies Allergy/AdvReac Type Severity Reaction Status Date / Time codeine Allergy Unknown Verified 07/07/20 20:24 Penicillins Allergy Unknown Verified 07/07/20 20:24 pseudoephedrine Allergy Unknown Verified 07/07/20 20:24 [From Actifed] Sulfa (Sulfonamide Allergy Unknown Verified 07/07/20 20:24 Antibiotics) triprolidine [From Actifed] Allergy Unknown Verified 07/07/20 20:24 Physical Exam Vitals: Vital Signs Temp Pulse Pulse Resp BP BP Pulse Ox 07/08/20 13:28 80 07/08/20 13:15 80 07/08/20 10:00 98.0 F 80 22 100/62 95 07/08/20 08:15 84 20 07/08/20 08:00 84 07/08/20 05:50 98.5 F 88 22 133/77 95 07/08/20 03:40 17 07/08/20 02:00 99.7 F H 90 22 126/77 96 07/08/20 00:25 17 07/07/20 22:33 88 07/07/20 22:23 88 07/07/20 22:00 98.8 F 71 20 120/65 97 07/07/20 21:23 99.9 F H 99 22 126/61 96 07/07/20 21:21 99.9 F H 07/07/20 21:00 100.0 F H 99 22 126/61 96 07/07/20 19:18 93 L 07/07/20 19:08 20 07/07/20 19:06 103.2 F H 07/07/20 18:45 102.4 F H 115 H 18 169/70 96 Intake and Output 07/07/20 07/08/20 07/08/20 22:59 06:59 14:59 Intake Total 100 880 Balance 100 880 Intake: Intake, IV Titration 700 Amount Sodium Chloride 0.9% 1, 600 000 ml @ 100 mls/hr IV . Q10H ALICIA Rx#:[id number] metroNIDAZOLE-NS PMX 500 100 mg In Saline 1 100ml.bag @ 100 mls/hr IVPB Q8HR ALICIA Rx#:[id number] Oral 100 180 Other: Voiding Method Toilet Toilet # Voids 1 1 1 # Bowel Movements 1 Weight 111.13 kg PHYSICAL EXAMINATION: GENERAL: The patient is alert and oriented x3, not in any acute distress. Well developed, well nourished. HEENT: Pupils are round and equally reacting to light. EOMI. No scleral icterus. No conjunctival pallor. Normocephalic, atraumatic. No pharyngeal erythema. No thyromegaly. CARDIOVASCULAR: S1 and S2 present. No murmurs, rubs, or gallops. PULMONARY: Breath sounds present diminished in the right posterior lung vanegas probable egophony and bronchophony ABDOMEN: Soft, nontender, nondistended, normoactive bowel sounds. No palpable organomegaly. MUSCULOSKELETAL: No joint swelling or deformity. EXTREMITIES: No cyanosis, clubbing, or pedal edema. NEUROLOGICAL: Gross neurological examination did not reveal any focal deficits. SKIN: No rashes. Results CBC & Chem 7: 07/07/20 19:07/07/20 19:23 Labs: Abnormal Lab Results - Last 24 Hours (Table) 07/07/20 07/07/20 07/07/20 Range/Units 19:23 19:23 20:13 WBC 22.5 H (3.8-10.6) k/uL Neutrophils # 19.7 H (1.3-7.7) k/uL Sodium 134 L (137-145) mmol/L Potassium 5.6 H (3.5-5.1) mmol/L BUN 23 H (7-17) mg/dL Glucose 106 H (74-99) mg/dL Lactate Dehydrogenase 823 H (313-618) U/L C-Reactive Protein 44.8 H (<10.0) mg/L Procalcitonin 0.20 H (0.02-0.09) ng/mL Thrombosis Risk Factor Assmnt - Choose All That Apply Any of the Below Risk Factors Present?: Yes Each Factor Represents 1 point: Abnormal pulmonary function (COPD), Obesity (BMI >25) Other Risk Factors: Yes Each Risk Factor Represents 2 Points: Age 61-74 years Thrombosis Risk Factor Assessment Total Risk Factor Score: 4 Thrombosis Risk Factor Assessment Level: Moderate Risk Assessment and Plan Plan: -Sepsis: Secondary to right lower lobe pneumonia. Patient will be continued on levofloxacin and she is ALLERGIC to penicillins. Sputum cultures will be obtained blood cultures are pending continue with breathing treatments. -Community-acquired pneumonia right lower lobe -Hyperkalemia secondary to TONY inhibitor inhibitor which will be held -COPD without any acute exacerbation -Gastroesophageal reflux disease -Hyperlipidemia -Hypertension -Hyperthyroidism -Due to prophylaxis with Lovenox GI prophylaxis with Pepcid
[2020-07-08] MEDS: HYDROcodone/APAP 5-325MG 1 EACH TAB PO PRN ×2 (15:57→23:19)
[2020-07-08] MEDS ORDERED: CLINDAMYCIN 600 MG in DEXTROSE 5% IN WATER 50 ML IVPB SCH ×2 (16:00)
--- NOTE | 2020-07-08 16:03 | CT ---
EXAMINATION TYPE: CT chest angio for PE DATE OF EXAM: 07/08/2020 COMPARISON: 06/10/2020 HISTORY: Right chest pain, lung mass. CT DLP: 497 mGycm CONTRAST: CT chest with contrast and 3D reconstruction with MIP imaging is performed with IV Contrast, patient injected with 100 mL of Isovue 370. Contrast-enhanced CT of the chest was performed through the course of the pulmonary arteries with miriam g and mediastinal window settings submitted. 3D reconstruction with MIP imaging was also performed. PULMONARY ARTERIES: The pulmonary arteries and their major tributaries are patent. I do not see daily dence for sizable filling defect to suggest pulmonary embolic process. LUNGS: Right perihilar mass is again redemonstrated. There is associated postobstructive infiltrate o r volume loss. Right-sided pleural effusion is a new finding with AP maximal dimension of 2.6 cm. Add itional layering effusion right upper lobe. MEDIASTINUM: Thoracic aorta is of normal caliber,however, evaluation is limited given timing of the contrast bolus. If there is concern for thoracic aortic pathology consider AMPARO. Correlate clinicall y . The heart is not enlarged. No evidence for mediastinal mass. No mediastinal lymph nodes greater than 1cm. HILAR STRUCTURES: No evidence for mass. No hilar lymph nodes greater than 1 cm. UPPER ABDOMEN: No significant abnormality is seen. IMPRESSION: 1. No evidence for Pulmonary embolism at this time. 2. Persistent right perihilar mass with postobstructive atelectasis or pneumonia and a new right-side d pleural effusion.
[2020-07-08] MEDS: methylPREDNISolone SOD SUCCI 40 MG/ML 1 ML VIAL IV SCH ×2 (17:04→23:15)
[2020-07-08 17:46] LABS: Glucose,Whole Blood 117 mg/dL (75-99)
[2020-07-08] MEDS ORDERED: diphenhydrAMINE 50 MG/ML 1 ML VIAL IVP PRN (18:57)
--- NOTE | 2020-07-08 20:07 | P.CNPUL ---
History of Present Illness Consult date: 07/08/20 Requesting physician: Lynette Freeman Reason for consult: dyspnea Chief complaint: Dyspnea, fever, mild nausea History of present illness: 70-year-old white female patient of Dr. Emilio Siddiqi with the past medical history of COPD, hypertension, hyperlipidemia, chronic hypoxic respiratory fail ure on home oxygen at 2 L, osteoarthritis, hypothyroidism, former smoker who presented to the emergency department on 07/07/2020 for evaluation of shortness of breath, fever, mild nausea, ration denied any loss of smell or taste, she had a recent history of pneumonia about a month ago. She follows with Dr. Longoria in the pulmonary office, and she underwent bronchoscopy with airway examination and bronchoalveolar lavage and endobronchial biopsies were taken of the right middle lobe, transbronchial biopsies of the right middle lobe, brushes of the right middle lobe and washes of the right middle lobe by Dr. Longoria. However the biopsies were nondiagnostic, showing virtually acellular specimen consisting of blood. Patient was treated with antibiotics, with a plan of repeat bronchoscopy with biopsies probably under electromagnetic navigation. Chest x-ray in emergency department showed right lower lobe pneumonia with more diffuse appearance compared to most recent chest x-ray from 06/03/2020. COVID 19 was negative, influenza was negative. Patient does have a liver leukocytosis with white blood cell, 22.5, hemoglobin of 12, sodium was 134, potassium 5.6, B1 is 23, creatinine 0.6, lactic acid was within normal limits, LDH was 823, CRP was 44.8, pro calcitonin level was 0.20, patient was febrile on presentation with T- max of 103.2F. She is still on supplemental oxygen at 2 L with a pulse ox of 91%. Feels short of breath on exertion, but denies any chest discomfort, or hemoptysis. She is on antibiotic coverage in the form of Levaquin, she is pen ALLERGIC, we will add clindamycin to the current antibiotic regimen for a possibility of postobstructive pneumonia Review of Systems All systems: negative Constitutional: Denies chills, Denies fever Eyes: denies blurred vision, denies pain Ears, nose, mouth and throat: Denies headache, Denies sore throat Cardiovascular: Denies chest pain, Denies shortness of breath Respiratory: Reports dyspnea, Reports respiratory infections, Denies cough Gastrointestinal: Denies abdominal pain, Denies diarrhea, Denies nausea, Denies vomiting Genitourinary: Denies dysuria, Denies hematuria Musculoskeletal: Denies myalgias Integumentary: Denies pruritus, Denies rash Neurological: Denies numbness, Denies weakness Psychiatric: Denies anxiety, Denies depression Endocrine: Denies fatigue, Denies weight change Past Medical History Past Medical History: Asthma, COPD, GERD/Reflux, Hyperlipidemia, Hypertension, Osteoarthritis (OA), Thyroid Disorder Additional Past Medical History / Comment(s): SOB-using O2 @ 2L [place],emphysema, hx migraines has resolved since menopause History of Any Multi-Drug Resistant Organisms: None Reported Past Surgical History: Appendectomy, Back Surgery, Cholecystectomy, Heart Catheterization, Tonsillectomy Additional Past Surgical History / Comment(s): heartcath 05-23-20, rt wrist access, colonoscopy Past Anesthesia/Blood Transfusion Reactions: No Reported Reaction Past Psychological History: No Psychological Hx Reported Smoking Status: Former smoker Past Alcohol Use History: None Reported Additional Past Alcohol Use History / Comment(s): quit smoking 2008, smoked for 30 yrs- 2 PPD Past Drug Use History: None Reported - Past Family History Mother Family Medical History: No Reported History Additional Family Medical History / Comment(s): from alzheimers Father Family Medical History: Congestive Heart Failure (CHF) Additional Family Medical History / Comment(s): valve replacement Medications and Allergies Home Medications Medication Instructions Recorded Confirmed Type Levothyroxine Sodium [Synthroid] 50 mcg PO DAILY 04/10/14 07/07/20 History Montelukast [Singulair] 10 mg PO HS 04/10/14 07/07/20 History Ascorbic Acid [Vitamin C] 500 mg PO DAILY 02/23/16 07/07/20 History Calcium Carbonate [Calcium] 1,200 mg PO DAILY 02/23/16 07/07/20 History Fluticasone/Salmeterol [Advair Hfa 2 puff INHALATION RT-BID 02/23/16 07/07/20 History 230-21 Mcg Inhaler] Multivit with Calcium,Iron,Min 1 tab PO DAILY 02/23/16 07/07/20 History [Women's Daily Multivitamin] Magnesium 200 mg PO DAILY 06/28/16 07/07/20 History Cholecalciferol [Vitamin D3 (25 1,000 unit PO DAILY 04/10/18 07/07/20 History Mcg = 1000 Iu)] L.acidoph,Paracasei, B.lactis 1 cap PO DAILY 04/10/18 07/07/20 History [Probiotic] Naproxen Sodium [Aleve] 220 mg PO HS PRN 04/10/18 07/07/20 History [place]-3 Fatty Acids/Fish Oil [Fish 1 cap PO DAILY 04/10/18 07/07/20 History Oil 1,000 mg Softgel] Rosuvastatin Calcium [Crestor] 10 mg PO HS 04/10/18 07/07/20 History Ubidecarenone [Co Q-10] 100 mg PO DAILY 04/10/18 07/07/20 History Isosorbide Mononitrate [Isosorbide 30 mg PO DAILY 05/21/20 07/07/20 History Mononitrate ER] Losartan Potassium [Cozaar] 100 mg PO DAILY 05/21/20 07/07/20 History predniSONE 5 mg PO DAILY 05/21/20 07/07/20 History Furosemide [Lasix] 40 mg PO DAILY 07/07/20 07/07/20 History Ipratropium-Albuterol Nebulize 3 ml INHALATION RT-QID 07/07/20 07/07/20 History [Duoneb 0.5 mg-3 mg/3 ml Soln] Omeprazole 20 mg PO DAILY 07/07/20 07/07/20 History Spironolactone [Aldactone] 12.5 mg PO DAILY 07/07/20 07/07/20 History Allergies Allergy/AdvReac Type Severity Reaction Status Date / Time codeine Allergy Unknown Verified 07/07/20 20:24 Penicillins Allergy Unknown Verified 07/07/20 20:24 pseudoephedrine Allergy Unknown Verified 07/07/20 20:24 [From Actifed] Sulfa (Sulfonamide Allergy Unknown Verified 07/07/20 20:24 Antibiotics) triprolidine [From Actifed] Allergy Unknown Verified 07/07/20 20:24 clindamycin AdvReac Intermediate Unknown Verified 07/08/20 19:31 Physical Exam Vitals: Vital Signs Temp Pulse Pulse Resp BP BP Pulse Ox 07/08/20 18:14 102 H 18 07/08/20 18:03 102 H 18 07/08/20 17:47 97.3 F L 64 24 120/72 91 L 07/08/20 16:23 88 20 07/08/20 16:10 88 18 07/08/20 14:00 97.5 F L 95 20 104/65 94 L 07/08/20 13:28 80 07/08/20 13:15 80 07/08/20 10:00 98.0 F 80 22 100/62 95 07/08/20 08:15 84 20 07/08/20 08:00 84 07/08/20 05:50 98.5 F 88 22 133/77 95 07/08/20 03:40 17 07/08/20 02:00 99.7 F H 90 22 126/77 96 07/08/20 00:25 17 07/07/20 22:33 88 07/07/20 22:23 88 07/07/20 22:00 98.8 F 71 20 120/65 97 07/07/20 21:23 99.9 F H 99 22 126/61 96 07/07/20 21:21 99.9 F H 07/07/20 21:00 100.0 F H 99 22 126/61 96 Intake and Output 07/08/20 07/08/20 07/08/20 06:59 14:59 22:59 Intake Total 100 880 Balance 100 880 Intake: Intake, IV Titration 700 Amount Sodium Chloride 0.9% 1, 600 000 ml @ 100 mls/hr IV . Q10H [facility] Rx#:[id number] metroNIDAZOLE-NS PMX 500 100 mg In Saline 1 100ml.bag @ 100 mls/hr IVPB Q8HR [facility] Rx#:[id number] Oral 100 180 Other: Voiding Method Toilet Toilet Toilet # Voids 1 1 1 # Bowel Movements 1 1 GENERAL EXAM: Alert, 70-year-old white gentleman liters of oxygen and pulse ox 91%, appears weak, but no acute distress, resting in bed, comfortable in no apparent distress. HEAD: Normocephalic/atraumatic. EYES: Normal reaction of pupils, equal size. Conjunctiva pink, sclera white. NOSE: Clear with pink turbinates. THROAT: No erythema or exudates. NECK: No masses, no JVD, no thyroid enlargement, no adenopathy. CHEST: No chest wall deformity. Symmetrical expansion. LUNGS: Equal air entry with right lower lobe crackles, diminished breath sounds CVS: Regular rate and rhythm, normal S1 and S2, no gallops, no murmurs, no rubs ABDOMEN: Soft, nontender. No hepatosplenomegaly, normal bowel sounds, no guarding or rigidity. EXTREMITIES: No clubbing, no edema, no cyanosis, 2+ pulses and upper and lower extremities. MUSCULOSKELETAL: Muscle strength and tone normal. SPINE: No scoliosis or deformity SKIN: No rashes CENTRAL NERVOUS SYSTEM: Alert and oriented -3. No focal deficits, tone is normal in all 4 extremities. PSYCHIATRIC: Alert and oriented -3. Appropriate affect. Intact judgment and insight. Results - Laboratory Findings CBC and BMP: 07/07/20 19:23 07/07/20 19:23 PT/INR, D-dimer PT 10.2 sec (9.0-12.0) 07/07/20 19: INR 1.0 (<1.2) 07/07/20 19:23 Abnormal lab findings: Abnormal Labs 07/07/20 07/07/20 07/07/20 19:23 19:23 20:13 WBC 22.5 H Neutrophils # 19.7 H Sodium 134 L Potassium 5.6 H BUN 23 H Glucose 106 H POC Glucose (mg/dL) Lactate Dehydrogenase 823 H C-Reactive Protein 44.8 H Procalcitonin 0.20 H 07/08/20 17:45 WBC Neutrophils # Sodium Potassium BUN Glucose POC Glucose (mg/dL) 117 H Lactate Dehydrogenase C-Reactive Protein Procalcitonin - Diagnostic Findings Chest x-ray: report reviewed, image reviewed CT scan - chest: report reviewed, image reviewed Assessment and Plan Plan: Assessment: #1. Acute febrile illness, shortness of breath related to possibility of postobstructive pneumonia, related to right perihilar mass with associated postobstructive infiltrate and volume loss. COVID 19 and influenza negative #2. Pleuritic chest pain, possibility of pulmonary embolism ruled out #3. Recent history of pneumonia, and bronchoscopy with biopsies of right middle lobe, which were nondiagnostic #4. History of COPD on home oxygen use at 2 L #5. Hypertension #6. Hyperlipidemia #7. GERD/reflux #8. Former smoker Plan: Continue Levaquin, we added clindamycin, CTA chest has been reviewed, no evidence of pulmonary embolism, however right perihilar mass was again re- demonstrated with associated postobstructive infiltrate and volume loss, we will add IV Solu-Medrol for pleuritic chest discomfort, and oral Gilbert's, continue bronchodilators, COVID 19 was ruled out, influenza ruled out. Patient will likely need repeat bronchoscopy with the biopsies of the right middle lobe, for now we'll continue with medical treatment. Repeat bronchoscopy may have to be done under electromagnetic navigation I performed a history & physical examination of the patient and discussed their management with my nurse practitioner, Jo Cifuentes. I reviewed the nurse practitioner's note and agree with the documented findings and plan of care. Lung sounds are positive for breast sounds. The findings and the impression was discussed with the patient. I attest to the documentation by the nurse practitioner. Time with Patient: Greater than 30
[2020-07-08] MEDS: MONTELUKAST 10 MG TAB PO SCH (20:09)
[2020-07-08] MEDS: FAMOTIDINE 20 MG TAB PO SCH (20:09)
[2020-07-08] MEDS ORDERED: LEVOFLOXACIN 750MG-D5W PMX 750 MG in DEXTROSE/WATER 1 150ML.BAG IVPB SCH (21:00)
[2020-07-08] MEDS: IPRATROPIUM-ALBUTEROL 3 ML NEB INHALATION PRN (22:29)
[2020-07-09] MEDS: SODIUM CHLORIDE 0.9% 1,000 ML IV SCH ×3 (03:59→22:01)
[2020-07-09] MEDS: LEVOTHYROXINE 50 MCG TAB PO SCH (06:03)
[2020-07-09 06:40] LABS: HCT 36.2 % (34.0-46.0); HGB 11.9 gm/dL (11.4-16.0); MCH 29.1 pg (25.0-35.0); MCHC 32.8 g/dL (31.0-37.0); MCV 88.6 fL (80.0-100.0); Mean Platelet Volume 7.1; Platelet Count 339 k/uL (150-450); RBC 4.08 m/uL (3.80-5.40); RDW 14.1 % (11.5-15.5); WBC 32.3 k/uL (3.8-10.6)
[2020-07-09] MEDS: IPRATROPIUM-ALBUTEROL 3 ML NEB INHALATION SCH ×4 (08:52→19:21)
[2020-07-09] MEDS: ENOXAPARIN 40 MG/0.4 ML SYRINGE SQ SCH (09:00)
[2020-07-09] MEDS: methylPREDNISolone SOD SUCCI 40 MG/ML 1 ML VIAL IV SCH ×3 (09:00→23:09)
[2020-07-09] MEDS: FAMOTIDINE 20 MG TAB PO SCH ×2 (09:01→22:00)
[2020-07-09] MEDS: ISOSORBIDE MONONITRATE ER 30 MG TAB.ER.24H PO SCH (09:01)
[2020-07-09] MEDS: CALCIUM CARBONATE 500 MG CHEWABLE PO SCH (09:01)
[2020-07-09] MEDS: ASCORBIC ACID 500 MG TAB PO SCH (09:01)
[2020-07-09] MEDS: CHOLECALCIFEROL 1,000 UNIT TAB PO SCH (09:01)
[2020-07-09] MEDS ORDERED: LOSARTAN 50 MG TAB PO SCH (09:15)
[2020-07-09 09:48] LABS: Anion Gap 8.9 mmol/L (4.00-12.00); Calcium 9.7 mg/dL (8.7-10.3); Carbon Dioxide 25.1 mmol/L (21.6-31.8); Non-African American GFR(CKD) 87.2 (60.0-200.0)
[2020-07-09] MEDS: HYDROcodone/APAP 5-325MG 1 EACH TAB PO PRN (10:53)
[2020-07-09] MEDS ORDERED: CEFEPIME 2 GM in SODIUM CHLORIDE 0.9% 100 ML IVPB ONE (13:15)
--- NOTE | 2020-07-09 13:16 | P.PN ---
Subjective Patient is admitted for pneumonia patient still have fevers. Patient was on levofloxacin because of her ALLERGIES to penicillins. Patient had a CAT scan which was showing postobstructive pneumonia. Patient was started on cefepime. Patient had an ALLERGIC reaction to clindamycin patient remains on levofloxacin. Infectious disease is managing antibiotics Constitutional: Denied any fatigue denied any fever. Cardio vascular: denied any chest pain, palpitations Gastrointestinal denied any nausea vomiting Pulmonary: Still has some shortness of breath Neurologic denied any new focal deficits All inpatient medications were reviewed and appropriate changes in these medications as dictated in the interval history and assessment and plan. Objective - Vital Signs Vital signs: Vital Signs Temp 100.1 F H 07/09/20 10:58 Pulse 101 H 07/09/20 12:18 Resp 18 07/09/20 10:58 BP 129/80 07/09/20 10:58 Pulse Ox 94 L 07/09/20 10:58 Intake & Output 07/08/20 07/09/20 07/09/20 18:59 06:59 18:59 Intake Total 880 Balance 880 Intake: Intake, IV Titration 700 Amount Sodium Chloride 0.9% 1, 600 000 ml @ 100 mls/hr IV . Q10H [facility] Rx#:[id number] metroNIDAZOLE-NS PMX 500 100 mg In Saline 1 100ml.bag @ 100 mls/hr IVPB Q8HR [facility] Rx#:[id number] Oral 180 Other: Voiding Method Toilet Toilet Toilet # Voids 1 1 # Bowel Movements 1 - Exam PHYSICAL EXAMINATION: GENERAL: The patient is alert and oriented x3, not in any acute distress. Well developed, well nourished. HEENT: Pupils are round and equally reacting to light. EOMI. No scleral icterus. No conjunctival pallor. Normocephalic, atraumatic. No pharyngeal erythema. No thyromegaly. CARDIOVASCULAR: S1 and S2 present. No murmurs, rubs, or gallops. PULMONARY: Breath sounds present diminished in the right posterior lung vanegas probable egophony and bronchophony ABDOMEN: Soft, nontender, nondistended, normoactive bowel sounds. No palpable organomegaly. MUSCULOSKELETAL: No joint swelling or deformity. EXTREMITIES: No cyanosis, clubbing, or pedal edema. NEUROLOGICAL: Gross neurological examination did not reveal any focal deficits. SKIN: No rashes. - Labs CBC & Chem 7: 07/09/20 06:11 07/09/20 06:11 Labs: Abnormal Lab Results - Last 24 Hours (Table) 07/08/20 07/09/20 07/09/20 Range/Units 17:45 06:11 06:11 WBC 32.3 H (3.8-10.6) k/uL Glucose 145 H (70-110) mg/dL POC Glucose (mg/dL) 117 H (75-99) mg/dL Microbiology - Last 24 Hours (Table) 07/07/20 19:23 Blood Culture - Preliminary Blood No Growth after 24 hours Assessment and Plan Plan: -Sepsis: Secondary to right lower lobe pneumonia patient appears to have postobstructive pneumonia patient is on cefepime and levofloxacin as per infectious disease. Pulmonology evaluated the patient. Patient had a computed tomography scan which showed the above-mentioned results. Patient probably will need bronchoscopy. Pulmonary is following the patient.. -Postobstructive pneumonia leading to hypoxic respiratory failure. Acute -Hyperkalemia secondary to TONY inhibitor inhibitor which was held and potassium normalized -COPD without any acute exacerbation -Gastroesophageal reflux disease -Hyperlipidemia -Hypertension -Hyperthyroidism -Due to prophylaxis with Lovenox GI prophylaxis with Pepcid
--- NOTE | 2020-07-09 15:36 | P.PN ---
Subjective Progress Note Date: 07/09/20 Principal diagnosis: Dyspnea, fever, mild nausea 70-year-old white female patient of Dr. Emilio Siddiqi with the past medical history of COPD, hypertension, hyperlipidemia, chronic hypoxic respiratory failure on home oxygen at 2 L, osteoarthritis, hypothyroidism, former smoker who presented to the emergency department on 07/07/2020 for evaluation of shortness of breath, fever, mild nausea, ration denied any loss of smell or taste, she had a recent history of pneumonia about a month ago. She follows with Dr. Longoria in the pulmonary office, and she underwent bronchoscopy with airway examination and bronchoalveolar lavage and endobronchial biopsies were taken of the right middle lobe, transbronchial biopsies of the right middle lobe, brushes of the right middle lobe and washes of the right middle lobe by Dr. Longoria. However the biopsies were nondiagnostic, showing virtually acellular specimen consisting of blood. Patient was treated with antibiotics, with a plan of repeat bronchoscopy with biopsies probably under electromagnetic navigation. Chest x-ray in emergency department showed right lower lobe pneumonia with more diffuse appearance compared to most recent chest x-ray from 06/03/2020. COVID 19 was negative, influenza was negative. Patient does have a liver leukocytosis with white blood cell, 22.5, hemoglobin of 12, sodium was 134, potassium 5.6, B1 is 23, creatinine 0.6, lactic acid was within normal limits, LDH was 823, CRP was 44.8, pro calcitonin level was 0.20, patient was febrile on presentation with T- max of 103.2F. She is still on supplemental oxygen at 2 L with a pulse ox of 91%. Feels short of breath on exertion, but denies any chest discomfort, or hemoptysis. She is on antibiotic coverage in the form of Levaquin, she is pen ALLERGIC, we will add clindamycin to the current antibiotic regimen for a possibility of postobstructive pneumonia On 07/09/2020 patient seen in follow-up on medical surgical floor. Patient ruled out for COVID 19, influenza screen was also negative. She looks better on today's exam, still has a congested cough, though short of breath, but overall she is stable, she is on 2 L of oxygen pulse ox is 94%, hemodynamically she is stable, she did have a fever today, with a T-max of 100.1F. On today's labs her white count has further increased to 32.3, in part due to steroids, hemoglobin is 11.9, procalcitonin level was 0.20, electrolytes and renal profile were within normal limits, her LFTs were within normal limits. Blood culture has shown no growth. Her current antibiotic coverage includes cefepime, Levaquin. ID service is following, sputum culture has been sent and is pending at this time. Overall she is feeling better, she is able to take deeper breath, in the chest pain under the right breast has improved Objective - Vital Signs Vital signs: Vital Signs Temp 98.9 F 07/09/20 14:29 Pulse 97 07/09/20 14:29 Resp 20 07/09/20 14:29 BP 119/70 07/09/20 14:29 Pulse Ox 94 L 07/09/20 14:29 Intake & Output 07/08/20 07/09/20 07/09/20 18:59 06:59 18:59 Intake Total 880 Balance 880 Intake: Intake, IV Titration 700 Amount Sodium Chloride 0.9% 1, 600 000 ml @ 100 mls/hr IV . Q10H [facility] Rx#:[id number] metroNIDAZOLE-NS PMX 500 100 mg In Saline 1 100ml.bag @ 100 mls/hr IVPB Q8HR [facility] Rx#:[id number] Oral 180 Other: Voiding Method Toilet Toilet Toilet # Voids 1 1 4 # Bowel Movements 1 - Exam GENERAL EXAM: Alert, 70-year-old white gentleman liters of oxygen and pulse ox 91%, appears weak, but no acute distress, resting in bed, comfortable in no apparent distress. HEAD: Normocephalic/atraumatic. EYES: Normal reaction of pupils, equal size. Conjunctiva pink, sclera white. NOSE: Clear with pink turbinates. THROAT: No erythema or exudates. NECK: No masses, no JVD, no thyroid enlargement, no adenopathy. CHEST: No chest wall deformity. Symmetrical expansion. LUNGS: Equal air entry with right lower lobe crackles, diminished breath sounds CVS: Regular rate and rhythm, normal S1 and S2, no gallops, no murmurs, no rubs ABDOMEN: Soft, nontender. No hepatosplenomegaly, normal bowel sounds, no guarding or rigidity. EXTREMITIES: No clubbing, no edema, no cyanosis, 2+ pulses and upper and lower extremities. MUSCULOSKELETAL: Muscle strength and tone normal. SPINE: No scoliosis or deformity SKIN: No rashes CENTRAL NERVOUS SYSTEM: Alert and oriented -3. No focal deficits, tone is normal in all 4 extremities. PSYCHIATRIC: Alert and oriented -3. Appropriate affect. Intact judgment and insight. - Labs CBC & Chem 7: 07/09/20 06:11 07/09/20 06:11 Labs: Abnormal Lab Results - Last 24 Hours (Table) 07/08/20 07/09/20 07/09/20 Range/Units 17:45 06:11 06:11 WBC 32.3 H (3.8-10.6) k/uL Glucose 145 H (70-110) mg/dL POC Glucose (mg/dL) 117 H (75-99) mg/dL Microbiology - Last 24 Hours (Table) 07/07/20 19:23 Blood Culture - Preliminary Blood No Growth after 24 hours Assessment and Plan Plan: Assessment: #1. Acute febrile illness, shortness of breath related to possibility of postobstructive pneumonia, related to right perihilar mass with associated postobstructive infiltrate and volume loss. COVID 19 and influenza negative #2. Pleuritic chest pain, possibility of pulmonary embolism ruled out #3. Recent history of pneumonia, and bronchoscopy with biopsies of right middle lobe, which were nondiagnostic #4. History of COPD on home oxygen use at 2 L #5. Hypertension #6. Hyperlipidemia #7. GERD/reflux #8. Former smoker Plan: Continue with antibiotics per ID service recommendations, and coverage includes cefepime and Levaquin, patient could not tolerate clindamycin. Overall she is feeling better, pleuritic chest discomfort under the right breast is better, patient is able to take deep breaths, continue IV steroids, continue nebulized bronchodilators, we will consider possibility of bronchoscopy on Tuesday I performed a history & physical examination of the patient and discussed their management with my nurse practitioner, Jo Cifuentes. I reviewed the nurse practitioner's note and agree with the documented findings and plan of care. L castro sounds are positive for breast sounds. The findings and the impression was discussed with the patient. I attest to the documentation by the nurse practitioner. Time with Patient: Less than 30
--- NOTE | 2020-07-09 18:54 | CONS ---
CONSULTATION DATE OF SERVICE: 07/09/2020 REASON FOR CONSULTATION: Pneumonia and MULTIPLE ANTIBIOTIC ALLERGIES. HISTORY OF PRESENT ILLNESS: The patient is a 70-year-old female with a past medical history significant for COPD, chronic hypoxic respiratory failure, on home oxygen at 2 L. This patient presented to the hospital for evaluation of fever, chills, shortness of breath and cough. The patient's symptoms had been going on for a day or two before presentation to the hospital. The patient did have a cough which was moderate in intensity with occasional sputum production. The patient denies having any hemoptysis or pleuritic chest pain. No nausea, no vomiting. No abdominal pain or any diarrhea. With these symptoms, the patient was evaluated by the ER physician. On arrival in the ER, the patient did have a fever of 102.4 degrees Fahrenheit. The patient was tachycardic and she was hypoxic, requiring supplemental oxygen. The patient did have a white count of 22.5; repeated up to 32.3 today. The patient did have normal kidney function. Liver enzymes were normal. LDH and CRP elevated. Procalcitonin was requested and is elevated as well. The patient's coronavirus PCR came back negative. Influenza PCR was negative. The patient did have a chest x-ray which showed right lower lobe pneumonia with a changing point of pneumonia compared to old exam. The patient also had a CT angiogram of the chest which showed no PE; however, it did show a persistent right perihilar mass with postobstructive atelectasis or pneumonia and new right-sided pleural effusion. Patient was admitted to the hospital. She was started on Levaquin and clindamycin. After receiving clindamycin, the patient did have some palpitations and was not feeling well. The patient denies having any difficulty breathing or tongue swelling or any rash. Clindamycin was discontinued. She is ALLERGIC TO PENICILLIN and SULFA. Infectious Disease was consulted for further management of antibiotic therapy. REVIEW OF SYSTEMS: Positive points have been mentioned in the HPI. Rest of the systems are negative. PAST MEDICAL HISTORY: Asthma, COPD, gastroesophageal reflux disease, hypertension, hyperlipidemia, osteoarthritis. PAST SURGICAL HISTORY: Appendectomy, back surgery, cholecystectomy, heart catheterization, tonsillectomy. SOCIAL HISTORY: Remote history of smoking. No drinking or drug use. FAMILY HISTORY: Mother from Alzheimer's. Father with history of congestive heart failure. ALLERGIES: PENICILLIN with a rash. Has taken Keflex without any problem. Allergy to SULFA, CLINDAMYCIN. CURRENT MEDICATIONS: The patient is currently on Tylenol, Prospect, DuoNeb, vitamin C, calcium, vitamin D3, Benadryl, Lovenox, Pepcid, Imdur, Levaquin, Synthroid, Cozaar, Solu-Medrol, Singulair, Ultram. PHYSICAL EXAMINATION: Blood pressure is 119/70 with a pulse of 97, temperature 98.9, T-max 103. She is 94% on 2 L nasal cannula. General description is an elderly female up in the bed in no distress. No tachypnea or accessory muscle of respiration use. HEENT: Examination shows no pallor or scleral icterus. Oral mucosa is moist. NECK: Trachea is central. LUNGS: Unlabored breathing. Coarse breath sounds. No wheeze. HEART: S1, S2. Regular rate and rhythm. ABDOMEN: Soft. No tenderness. No guarding or rigidity. EXTREMITIES: No edema of the feet. SKIN EXAMINATION: No rash or mass palpable. NEUROLOGICAL: Patient is awake, alert, oriented x3. Mood and affect normal. LABS: Hemoglobin 11.9, white count 2.3. Initial admission white count was 22.5, BUN of 23, creatinine 0.66. Liver enzymes normal. LDH, CRP elevated as well as procalcitonin. DIAGNOSTIC IMPRESSION AND PLAN: Patient admitted to hospital with sepsis. Source is likely right-sided pneumonia, question of possible postobstructive, with evidence of perihilar mass in this patient with MULTIPLE ANTIBIOTIC ALLERGIES. That will limit the number of antibiotics safe to use. ALLERGY to PENICILLIN with a rash; no anaphylaxis and has taken Keflex without any problem. PLAN: 1. We will try to obtain sputum for Gram stain and culture. 2. Will add cefepime 2 grams q.12 and continue with the Levaquin. 3. The patient may benefit from bronchoscopy, biopsy as well as deep culture. 4. Will follow clinical condition and further adjust medication if needed. Thank you for this consultation. Will follow this patient with you. MMODL / IJN: [id number] /
[2020-07-09] MEDS: CEFEPIME 2 GM in SODIUM CHLORIDE 0.9% 100 ML IVPB SCH (22:00)
[2020-07-09] MEDS: LEVOFLOXACIN 750 MG TAB PO SCH (22:00)
[2020-07-09] MEDS: MONTELUKAST 10 MG TAB PO SCH (22:00)
[2020-07-09] MEDS: ACETAMINOPHEN TAB 500 MG TAB PO PRN (23:11)
[2020-07-10] MEDS: IPRATROPIUM-ALBUTEROL 3 ML NEB INHALATION PRN (00:45)
[2020-07-10] MEDS: LEVOTHYROXINE 50 MCG TAB PO SCH (05:25)
[2020-07-10] MEDS: ACETAMINOPHEN TAB 500 MG TAB PO PRN (05:25)
[2020-07-10 06:56] LABS: HCT 35.8 % (34.0-46.0); HGB 11.2 gm/dL (11.4-16.0); MCH 27.9 pg (25.0-35.0); MCHC 31.4 g/dL (31.0-37.0); MCV 88.8 fL (80.0-100.0); Mean Platelet Volume 7.3; Platelet Count 415 k/uL (150-450); RBC 4.04 m/uL (3.80-5.40); RDW 14.2 % (11.5-15.5); WBC 26.3 k/uL (3.8-10.6)
[2020-07-10] MEDS: IPRATROPIUM-ALBUTEROL 3 ML NEB INHALATION SCH ×4 (07:59→19:16)
[2020-07-10] MEDS: ISOSORBIDE MONONITRATE ER 30 MG TAB.ER.24H PO SCH (08:13)
[2020-07-10] MEDS: CALCIUM CARBONATE 500 MG CHEWABLE PO SCH (08:13)
[2020-07-10] MEDS: CHOLECALCIFEROL 1,000 UNIT TAB PO SCH (08:13)
[2020-07-10] MEDS: FAMOTIDINE 20 MG TAB PO SCH ×2 (08:13→20:04)
[2020-07-10] MEDS: ASCORBIC ACID 500 MG TAB PO SCH (08:13)
[2020-07-10] MEDS: ENOXAPARIN 40 MG/0.4 ML SYRINGE SQ SCH (08:13)
[2020-07-10] MEDS: CEFEPIME 2 GM in SODIUM CHLORIDE 0.9% 100 ML IVPB SCH ×2 (08:14→20:03)
[2020-07-10] MEDS: SODIUM CHLORIDE 0.9% 1,000 ML IV SCH ×2 (08:14→23:55)
[2020-07-10] MEDS: methylPREDNISolone SOD SUCCI 40 MG/ML 1 ML VIAL IV SCH ×3 (08:14→23:40)
[2020-07-10] MEDS ORDERED: LOSARTAN 50 MG TAB PO SCH (09:00)
[2020-07-10 09:38] LABS: Anion Gap 9.8 mmol/L (4.00-12.00); BUN/Creat Ratio 24.29 Ratio (12.00-20.00); Calcium 9.6 mg/dL (8.7-10.3); Carbon Dioxide 24.2 mmol/L (21.6-31.8); Non-African American GFR(CKD) 87.2 (60.0-200.0); Potassium 4.1 mmol/L (3.5-5.5)
--- NOTE | 2020-07-10 15:43 | P.PN ---
Subjective Progress Note Date: 07/10/20 Principal diagnosis: Acute febrile illness suspect secondary to postobstructive pneumonia secondary to a right hilar mass, CoVID 19 and influenza negative 70-year-old white female patient of Dr. Emilio Siddiqi with the past medical history of COPD, hypertension, hyperlipidemia, chronic hypoxic respiratory failure on home oxygen at 2 L, osteoarthritis, hypothyroidism, former smoker who presented to the emergency department on 07/07/2020 for evaluation of shortness of breath, fever, mild nausea, ration denied any loss of smell or taste, she had a recent history of pneumonia about a month ago. She follows with Dr. Longoria in the pulmonary office, and she underwent bronchoscopy with airway examination and bronchoalveolar lavage and endobronchial biopsies were taken of the right middle lobe, transbronchial biopsies of the right middle lobe, brushes of the right middle lobe and washes of the right middle lobe by Dr. Longoria. However the biopsies were nondiagnostic, showing virtually acellular specimen consisting of blood. Patient was treated with antibiotics, with a plan of repeat bronchoscopy with biopsies probably under electromagnetic navigation. Chest x-ray in [facility] department showed right lower lobe pneumonia with more diffuse appearance compared to most recent chest x-ray from 06/03/2020. COVID 19 was negative, influenza was negative. Patient does have a liver leukocytosis with white blood cell, 22.5, hemoglobin of 12, sodium was 134, potassium 5.6, B1 is 23, creatinine 0.6, lactic acid was within normal limits, LDH was 823, CRP was 44.8, pro calcitonin level was 0.20, patient was febrile on presentation with T-max of 103.2F. She is still on supplemental oxygen at 2 L with a pulse ox of 91%. Feels short of breath on exertion, but denies any chest discomfort, or hemoptysis. She is on antibiotic coverage in the form of Levaquin, she is pen ALLERGIC, we will add clindamycin to the current antibiotic regimen for a possibility of postobstructive pneumonia On 07/09/2020 patient seen in follow-up on medical surgical floor. Patient ruled out for COVID 19, influenza screen was also negative. She looks better on today's exam, still has a congested cough, though short of breath, but overall she is stable, she is on 2 L of oxygen pulse ox is 94%, hemodynamically she is stable, she did have a fever today, with a T-max of 100.1F. On today's labs her white count has further increased to 32.3, in part due to steroids, hemoglobin is 11.9, procalcitonin level was 0.20, electrolytes and renal profile were within normal limits, her LFTs were within normal limits. Blood culture has shown no growth. Her current antibiotic coverage includes cefepime, Levaquin. ID service is following, sputum culture has been sent and is pending at this time. Overall she is feeling better, she is able to take deeper breath, in the chest pain under the right breast has improved Patient is seen today 07/10/2020 in follow-up on the regular medical floor. She is currently sitting up at the bedside. Awake and alert in no acute distress. Breathing a bit easier today compared to yesterday. 18 O2 saturation low 90s on 3 L/m per nasal cannula. She's afebrile. Blood culture reveals no growth. Sputum culture pending. White count 26.3. Hemoglobin 11.2. Sodium 137. Potassium 4.1. Creatinine 0.7. Remains on bronchodilators, IV Solu-Medrol, Singulair. Continued on antibiotics in the form of cefepime and Levaquin. Objective - Vital Signs Vital signs: Vital Signs Temp 98.1 F 07/10/20 13:24 Pulse 80 07/10/20 13:24 Resp 17 07/10/20 13:24 BP 152/84 07/10/20 13:24 Pulse Ox 93 L 07/10/20 13:24 Intake & Output 07/09/20 07/10/20 07/10/20 18:59 06:59 18:59 Intake Total 1900 700 Balance 1900 700 Intake: Intake, IV Titration 1200 700 Amount Cefepime 2 gm In Sodium 100 Chloride 0.9% 100 ml @ 25 mls/hr IVPB Q12HR [facility] Rx #:[id number] Sodium Chloride 0.9% 1, 1200 600 000 ml @ 100 mls/hr IV . Q10H [facility] Rx#:[id number] Oral 700 Other: Voiding Method Toilet Toilet Toilet # Voids 4 1 - Exam GENERAL EXAM: Alert, 70-year-old female patient on 3 L of oxygen and pulse ox 93%, appears weak, but no acute distress, resting in bed, comfortable in no apparent distress. HEAD: Normocephalic/atraumatic. EYES: Normal reaction of pupils, equal size. Conjunctiva pink, sclera white. NOSE: Clear with pink turbinates. THROAT: No erythema or exudates. NECK: No masses, no JVD, no thyroid enlargement, no adenopathy. CHEST: No chest wall deformity. Symmetrical expansion. LUNGS: Equal air entry with right lower lobe crackles, diminished breath sounds CVS: Regular rate and rhythm, normal S1 and S2, no gallops, no murmurs, no rubs ABDOMEN: Soft, nontender. No hepatosplenomegaly, normal bowel sounds, no guarding or rigidity. EXTREMITIES: No clubbing, no edema, no cyanosis, 2+ pulses and upper and lower extremities. MUSCULOSKELETAL: Muscle strength and tone normal. SPINE: No scoliosis or deformity SKIN: No rashes CENTRAL NERVOUS SYSTEM: Alert and oriented -3. No focal deficits, tone is normal in all 4 extremities. PSYCHIATRIC: Alert and oriented -3. Appropriate affect. Intact judgment and insight. - Labs CBC & Chem 7: 07/10/20 06:32 07/10/20 06:32 Labs: Abnormal Lab Results - Last 24 Hours (Table) 07/10/20 07/10/20 Range/Units 06:32 06:32 WBC 26.3 H (3.8-10.6) k/uL Hgb 11.2 L (11.4-16.0) gm/dL BUN/Creatinine Ratio 24.29 H (12.00-20.00) Ratio Glucose 145 H (70-110) mg/dL Microbiology - Last 24 Hours (Table) 07/09/20 12:09 Gram Stain - Preliminary Sputum Sputum Culture - Preliminary 07/07/20 19:23 Blood Culture - Preliminary Blood No Growth after 48 hours Assessment and Plan Assessment: #1. Acute febrile illness, shortness of breath related to possibility of postobstructive pneumonia, related to right perihilar mass with associated postobstructive infiltrate and volume loss. COVID 19 and influenza negative #2. Pleuritic chest pain, possibility of pulmonary embolism ruled out #3. Recent history of pneumonia, and bronchoscopy with biopsies of right middle lobe, which were nondiagnostic #4. History of COPD on home oxygen use at 2 L #5. Hypertension #6. Hyperlipidemia #7. GERD/reflux #8. Former smoker Plan: The patient was seen and evaluated by Dr. Waller Offered to repeat bronchoscopy with BAL and biopsies The patient currently declines and wishes to follow up in the outpatient setting with Dr. Longoria She is cleared for discharge from the pulmonary standpoint Complete course of antibiotics Complete course of prednisone taper Continue home oxygen and home pulmonary medications I, the cosigning physician, performed a history & physical examination of the patient. Lungs sounds with crackles in the right posterior base, diminished. Maintaining good O2 saturations in the 90s on 3 L/m per nasal cannula. I discussed the assessment and plan of care with my nurse practitioner, Aleksandra Crook. I attest to the above note as dictated by her.
[2020-07-10] MEDS: MONTELUKAST 10 MG TAB PO SCH (20:04)
[2020-07-10] MEDS: LEVOFLOXACIN 750 MG TAB PO SCH (20:04)
--- NOTE | 2020-07-10 23:19 | P.PN ---
Subjective Progress Note Date: 07/10/20 Principal diagnosis: Sepsis: Secondary to right lower lobe pneumonia Patient is admitted for pneumonia patient still have fevers. Patient was on levofloxacin because of her ALLERGIES to penicillins. Patient had a CAT scan which was showing postobstructive pneumonia. Patient was started on cefepime. Patient had an ALLERGIC reaction to clindamycin patient remains on levofloxacin. Infectious disease is managing antibiotics. 07/10/2020 Patient is currently lying in the bed comfortably. Awake alert and oriented x3. Breathing status is improving. Currently on oxygen at 3.5 L via nasal cannula and is saturating at 97%. No complaints of fever or chills. No nausea vomiting abdominal pain. Laboratory data showed WBC 26.3, hemoglobin 11.2 and platelets 414 BUN 17 and creatinine 0.7. Patient is being continued on antibiotics in the form of cefepime and Levaquin. Also on methylprednisolone 40 mg every 8. Pulmonary recommends bronchoscopy and biopsy. But the patient wishes to follow- up as an outpatient. Anticipate discharge in the next 24 hours. Constitutional: Denied any fatigue denied any fever. Cardio vascular: denied any chest pain, palpitations Gastrointestinal denied any nausea vomiting Pulmonary: Still has some shortness of breath Neurologic denied any new focal deficits All inpatient medications were reviewed and appropriate changes in these med ications as dictated in the interval history and assessment and plan. Objective - Vital Signs Vital signs: Vital Signs Temp 98.1 F 07/10/20 19:35 Pulse 98 07/10/20 19:35 Resp 18 07/10/20 19:35 BP 147/79 07/10/20 19:35 Pulse Ox 97 07/10/20 19:35 Intake & Output 07/10/20 07/10/20 07/11/20 06:59 18:59 06:59 Intake Total 1900 700 Balance 1900 700 Intake: Intake, IV Titration 1200 700 Amount Cefepime 2 gm In Sodium 100 Chloride 0.9% 100 ml @ 25 mls/hr IVPB Q12HR [facility] Rx #:[id number] Sodium Chloride 0.9% 1, 1200 600 000 ml @ 100 mls/hr IV . Q10H [facility] Rx#:[id number] Oral 700 Other: Voiding Method Toilet Toilet Toilet # Voids 1 - Exam PHYSICAL EXAMINATION: GENERAL: The patient is alert and oriented x3, not in any acute distress. Well developed, well nourished. HEENT: Pupils are round and equally reacting to light. EOMI. No scleral icterus. No conjunctival pallor. Normocephalic, atraumatic. No pharyngeal erythema. No thyromegaly. CARDIOVASCULAR: S1 and S2 present. No murmurs, rubs, or gallops. PULMONARY: Breath sounds present diminished in the right posterior lung vanegas probable egophony and bronchophony ABDOMEN: Soft, nontender, nondistended, normoactive bowel sounds. No palpable organomegaly. MUSCULOSKELETAL: No joint swelling or deformity. EXTREMITIES: No cyanosis, clubbing, or pedal edema. NEUROLOGICAL: Gross neurological examination did not reveal any focal deficits. SKIN: No rashes. - Labs CBC & Chem 7: 07/10/20 06:32 07/10/20 06:32 Labs: Abnormal Lab Results - Last 24 Hours (Table) 07/10/20 07/10/20 Range/Units 06:32 06:32 WBC 26.3 H (3.8-10.6) k/uL Hgb 11.2 L (11.4-16.0) gm/dL BUN/Creatinine Ratio 24.29 H (12.00-20.00) Ratio Glucose 145 H (70-110) mg/dL Microbiology - Last 24 Hours (Table) 07/07/20 19:23 Blood Culture - Preliminary Blood No Growth after 72 hours 07/09/20 12:09 Gram Stain - Preliminary Sputum Sputum Culture - Preliminary Assessment and Plan Assessment: -Sepsis: Secondary to right lower lobe pneumonia patient appears to have postobstructive pneumonia patient is on cefepime and levofloxacin as per infectious disease. Pulmonology evaluated the patient. Patient had a computed tomography scan which showed the above-mentioned results. Pulmonary recommends bronchoscopy but the patient wishes to follow-up as an outpatient.. -Postobstructive pneumonia leading to hypoxic respiratory failure. Acute -Hyperkalemia secondary to TONY inhibitor inhibitor which was held and potassium normalized. restarted now. f/u K+ tomorrow. -COPD without any acute exacerbation -Gastroesophageal reflux disease -Hyperlipidemia -Hypertension -Hyperthyroidism -Due to prophylaxis with Lovenox GI prophylaxis with Pepcid Time with Patient: Greater than 30
[2020-07-11] MEDS: IPRATROPIUM-ALBUTEROL 3 ML NEB INHALATION PRN (02:01)
[2020-07-11] MEDS: LEVOTHYROXINE 50 MCG TAB PO SCH (05:29)
[2020-07-11] MEDS: SODIUM CHLORIDE 0.9% 1,000 ML IV SCH ×2 (05:31→14:07)
--- NOTE | 2020-07-11 06:46 | PN ---
PROGRESS NOTE DATE OF SERVICE: 07/11/2020 REASON FOR FOLLOWUP: Pneumonia. INTERVAL HISTORY: Patient is currently afebrile. The patient is feeling better. She is breathing more comfortably. The patient denies any chest pain. Did have a cough, though decreased in intensity, occasional sputum. No nausea, no vomiting. No abdominal pain, no diarrhea. PHYSICAL EXAMINATION: Blood pressure 139/96, pulse of 98, temperature 98.5, she is 98% on 3 L nasal cannula. General description is an elderly female lying in bed in no distress. Respiratory system: Unlabored breathing, decreased breath sounds in the base, with no wheeze. Heart S1, S2. Regular rate and rhythm. ABDOMEN: Soft, no tenderness. LABS: Hemoglobin 11.1, white count 26.3, BUN of 17, creatinine 0.7. Sputum pending. Blood culture negative. DIAGNOSTIC IMPRESSION AND PLAN: Patient admitted to the hospital with sepsis, source is pneumonia, possible gram- negative versus aspiration. The patient has multiple antibiotic allergies. Currently on cefepime and Levaquin to continue. Will wait for the sputum to finalized to determine discharge antibiotics. Continue supportive care. MMODL / IJN: [id number] /
[2020-07-11 07:44] LABS: Basophils % (A) 0 %; Eosinophils % (A) 0 %; HCT 35.7 % (34.0-46.0); HGB 11.1 gm/dL (11.4-16.0); Hypochromasia Slight; Lymphocytes # (A) 1.1 k/uL (1.0-4.8); Lymphocytes % (A) 7 %; MCH 27.7 pg (25.0-35.0); MCV 89.3 fL (80.0-100.0); Mean Platelet Volume 7.4; Monocytes # (A) 0.6 k/uL (0-1.0); Monocytes % (A) 4 %; Neutrophils # (A) 14.1 k/uL (1.3-7.7); Neutrophils % (A) 88 %; Platelet Count 367 k/uL (150-450); RDW 14.2 % (11.5-15.5)
[2020-07-11] MEDS: methylPREDNISolone SOD SUCCI 40 MG/ML 1 ML VIAL IV SCH ×2 (08:43→15:41)
[2020-07-11] MEDS: CEFEPIME 2 GM in SODIUM CHLORIDE 0.9% 100 ML IVPB SCH ×2 (08:43→19:36)
[2020-07-11] MEDS: ASCORBIC ACID 500 MG TAB PO SCH (08:44)
[2020-07-11] MEDS: FAMOTIDINE 20 MG TAB PO SCH ×2 (08:44→19:37)
[2020-07-11] MEDS: LOSARTAN 50 MG TAB PO SCH (08:44)
[2020-07-11] MEDS: ENOXAPARIN 40 MG/0.4 ML SYRINGE SQ SCH (08:44)
[2020-07-11] MEDS: ISOSORBIDE MONONITRATE ER 30 MG TAB.ER.24H PO SCH (08:44)
[2020-07-11] MEDS: CALCIUM CARBONATE 500 MG CHEWABLE PO SCH (08:44)
[2020-07-11] MEDS: CHOLECALCIFEROL 1,000 UNIT TAB PO SCH (08:44)
[2020-07-11] MEDS: IPRATROPIUM-ALBUTEROL 3 ML NEB INHALATION SCH ×4 (09:27→20:23)
[2020-07-11 10:45] LABS: African American GFR (CKD) 106.3 (60.0-200.0); Anion Gap 7.4 mmol/L (4.00-12.00); BUN/Creat Ratio 28.33 Ratio (12.00-20.00); Calcium 9.5 mg/dL (8.7-10.3); Carbon Dioxide 24.6 mmol/L (21.6-31.8); Non-African American GFR(CKD) 91.7 (60.0-200.0); Potassium 5.1 mmol/L (3.5-5.5)
--- NOTE | 2020-07-11 15:58 | P.PN ---
Subjective Progress Note Date: 07/11/20 Principal diagnosis: Dyspnea, fever, mild nausea 70-year-old white female patient of Dr. Emilio Siddiqi with the past medical history of COPD, hypertension, hyperlipidemia, chronic hypoxic respiratory failure on home oxygen at 2 L, osteoarthritis, hypothyroidism, former smoker who presented to the emergency department on 07/07/2020 for evaluation of shortness of breath, fever, mild nausea, ration denied any loss of smell or taste, she had a recent history of pneumonia about a month ago. She follows with Dr. Longoria in the pulmonary office, and she underwent bronchoscopy with airway examination and bronchoalveolar lavage and endobronchial biopsies were taken of the right middle lobe, transbronchial biopsies of the right middle lobe, brushes of the right middle lobe and washes of the right middle lobe by Dr. Longoria. However the biopsies were nondiagnostic, showing virtually acellular specimen consisting of blood. Patient was treated with antibiotics, with a plan of repeat bronchoscopy with biopsies probably under electromagnetic navigation. Chest x-ray in emergency department showed right lower lobe pneumonia with more diffuse appearance compared to most recent chest x-ray from 06/03/2020. COVID 19 was negative, influenza was negative. Patient does have a liver leukocytosis with white blood cell, 22.5, hemoglobin of 12, sodium was 134, potassium 5.6, B1 is 23, creatinine 0.6, lactic acid was within normal limits, LDH was 823, CRP was 44.8, pro calcitonin level was 0.20, patient was febrile on presentation with T- max of 103.2F. She is still on supplemental oxygen at 2 L with a pulse ox of 91%. Feels short of breath on exertion, but denies any chest discomfort, or hemoptysis. She is on antibiotic coverage in the form of Levaquin, she is pen ALLERGIC, we will add clindamycin to the current antibiotic regimen for a possibility of postobstructive pneumonia On 07/09/2020 patient seen in follow-up on medical surgical floor. Patient ruled out for COVID 19, influenza screen was also negative. She looks better on today's exam, still has a congested cough, though short of breath, but overall she is stable, she is on 2 L of oxygen pulse ox is 94%, hemodynamically she is stable, she did have a fever today, with a T-max of 100.1F. On today's labs her white count has further increased to 32.3, in part due to steroids, hemoglobin is 11.9, procalcitonin level was 0.20, electrolytes and renal profile were within normal limits, her LFTs were within normal limits. Blood culture has shown no growth. Her current antibiotic coverage includes cefepime, Levaquin. ID service is following, sputum culture has been sent and is pending at this time. Overall she is feeling better, she is able to take deeper breath, in the chest pain under the right breast has improved On 07/11/2020 patient seen in follow-up. She is awake and alert, she is curr ently on 3 L of oxygen pulse ox of 96%. She is breathing easier, appears to be in no acute distress. She's been afebrile for last 48 hours. Leukocytosis continues to improve, white blood cell count down to 16.0, electrolytes and renal profile are unremarkable. Patient has been treated with a combination of cefepime and Levaquin, IV steroids, breathing treatments, breathing significantly improved. Her blood and sputum cultures show no growth. Patient was offered bronchoscopy and biopsy while inpatient however she wants to go home in follow-up on an outpatient basis. She has had no acute events overnight. Objective - Vital Signs Vital signs: Vital Signs Temp 98.7 F 07/11/20 14:20 Pulse 98 07/11/20 14:20 Resp 16 07/11/20 14:20 BP 145/79 07/11/20 14:20 Pulse Ox 96 07/11/20 14:20 Intake & Output 07/10/20 07/11/20 07/11/20 18:59 06:59 18:59 Intake Total 700 300 Balance 700 300 Intake: Intake, IV Titration 700 300 Amount Cefepime 2 gm In Sodium 100 Chloride 0.9% 100 ml @ 25 mls/hr IVPB Q12HR [facility] Rx #:[id number] Sodium Chloride 0.9% 1, 600 300 000 ml @ 100 mls/hr IV . Q10H [facility] Rx#:[id number] Other: Voiding Method Toilet Toilet Toilet - Exam GENERAL EXAM: Alert, 70-year-old white gentleman liters of oxygen and pulse ox 91%, appears weak, but no acute distress, resting in bed, comfortable in no apparent distress. HEAD: Normocephalic/atraumatic. EYES: Normal reaction of pupils, equal size. Conjunctiva pink, sclera white. NOSE: Clear with pink turbinates. THROAT: No erythema or exudates. NECK: No masses, no JVD, no thyroid enlargement, no adenopathy. CHEST: No chest wall deformity. Symmetrical expansion. LUNGS: Equal air entry with right lower lobe crackles, diminished breath sounds CVS: Regular rate and rhythm, normal S1 and S2, no gallops, no murmurs, no rubs ABDOMEN: Soft, nontender. No hepatosplenomegaly, normal bowel sounds, no guarding or rigidity. EXTREMITIES: No clubbing, no edema, no cyanosis, 2+ pulses and upper and lower extremities. MUSCULOSKELETAL: Muscle strength and tone normal. SPINE: No scoliosis or deformity SKIN: No rashes CENTRAL NERVOUS SYSTEM: Alert and oriented -3. No focal deficits, tone is normal in all 4 extremities. PSYCHIATRIC: Alert and oriented -3. Appropriate affect. Intact judgment and insight. - Labs CBC & Chem 7: 07/11/20 06:53 07/11/20 06:53 Labs: Abnormal Lab Results - Last 24 Hours (Table) 07/11/20 07/11/20 Range/Units 06:53 06:53 WBC 16.0 H (3.8-10.6) k/uL Hgb 11.1 L (11.4-16.0) gm/dL Neutrophils # 14.1 H (1.3-7.7) k/uL BUN/Creatinine Ratio 28.33 H (12.00-20.00) Ratio Glucose 151 H (70-110) mg/dL Microbiology - Last 24 Hours (Table) 07/09/20 12:09 Gram Stain - Final Sputum Sputum Culture - Final 07/07/20 19:23 Blood Culture - Preliminary Blood No Growth after 72 hours Assessment and Plan Plan: Assessment: #1. Acute febrile illness, shortness of breath related to possibility of postobstructive pneumonia, related to right perihilar mass with associated postobstructive infiltrate and volume loss. COVID 19 and influenza negative #2. Pleuritic chest pain, possibility of pulmonary embolism ruled out, improved #3. Recent history of pneumonia, and bronchoscopy with biopsies of right middle lobe, which were nondiagnostic #4. History of COPD on home oxygen use at 2 L #5. Hypertension #6. Hyperlipidemia #7. GERD/reflux #8. Former smoker Plan: Continue current medical treatment, vital signs have been stable, afebrile, no growth on the blood and sputum cultures. She is breathing easier, pleurisy has improved. Patient has declined bronchoscopy with biopsies [facility], she was to follow-up on an outpatient basis. She's had no acute events overnight. She's been afebrile for 48 hours. She is breathing comfortably. From pulmonary perspective she is stable for discharge home with antibiotics of ID service recommendations, she will need outpatient follow-up with Dr. Longoria in the office in 7-10 days, she will be set up for bronchoscopy with biopsies I performed a history & physical examination of the patient and discussed their management with my nurse practitioner, Jo Cifuentes. I reviewed the nurse practitioner's note and agree with the documented findings and plan of care. Lung sounds are positive for breast sounds. The findings and the impression was discussed with the patient. I attest to the documentation by the nurse practitioner. Time with Patient: Less than 30
[2020-07-11] MEDS: MONTELUKAST 10 MG TAB PO SCH (19:37)
[2020-07-11] MEDS: LEVOFLOXACIN 750 MG TAB PO SCH (19:37)
[2020-07-11] MEDS: HYDROcodone/APAP 5-325MG 1 EACH TAB PO PRN (19:49)
--- NOTE | 2020-07-11 22:46 | PN ---
PROGRESS NOTE DATE OF SERVICE: 07/11/2020 REASON FOR FOLLOWUP: Pneumonia and MULTIPLE ANTIBIOTIC ALLERGIES. INTERVAL HISTORY: The patient is currently afebrile. The patient is breathing slightly comfortably. Denies having any chest pain. Cough has decreased in intensity. No nausea, no vomiting, no abdominal pain or diarrhea. PHYSICAL EXAMINATION: Blood pressure 145/79 with a pulse of 98, temperature 98.7. She is 96% on 3 L nasal cannula. General description is an elderly female up in the bed in no distress. RESPIRATORY SYSTEM: Unlabored breathing with decreased intensity of breath sounds. No wheeze. HEART: S1, S2. Regular rate and rhythm. ABDOMEN: Soft. No tenderness. LABS: Hemoglobin is 11.9, white count 16,000, BUN of 17, creatinine 0.6. Sputum currently pending. DIAGNOSTIC IMPRESSION AND PLAN: Patient admitted to hospital with pneumonia in this patient who has MULTIPLE ANTIBIOTIC ALLERGIES. Patient is currently covered with cefepime and Levaquin with culture negative for any resistant pathogen. She will be able to finish therapy with oral Levaquin for another 7 to 10 days and close outpatient followup. MMODL / IJN: [id number] /
[2020-07-12] MEDS: methylPREDNISolone SOD SUCCI 40 MG/ML 1 ML VIAL IV SCH ×3 (01:28→15:40)
[2020-07-12] MEDS: IPRATROPIUM-ALBUTEROL 3 ML NEB INHALATION PRN (01:40)
[2020-07-12] MEDS: SODIUM CHLORIDE 0.9% 1,000 ML IV SCH ×2 (03:55→11:29)
[2020-07-12] MEDS: LEVOTHYROXINE 50 MCG TAB PO SCH (05:44)
[2020-07-12] MEDS: HYDROcodone/APAP 5-325MG 1 EACH TAB PO PRN (09:31)
[2020-07-12] MEDS: FAMOTIDINE 20 MG TAB PO SCH ×2 (09:32→20:10)
[2020-07-12] MEDS: ISOSORBIDE MONONITRATE ER 30 MG TAB.ER.24H PO SCH (09:32)
[2020-07-12] MEDS: ENOXAPARIN 40 MG/0.4 ML SYRINGE SQ SCH (09:32)
[2020-07-12] MEDS: CHOLECALCIFEROL 1,000 UNIT TAB PO SCH (09:32)
[2020-07-12] MEDS: CALCIUM CARBONATE 500 MG CHEWABLE PO SCH (09:32)
[2020-07-12] MEDS: LOSARTAN 50 MG TAB PO SCH (09:32)
[2020-07-12] MEDS: ASCORBIC ACID 500 MG TAB PO SCH (09:33)
[2020-07-12] MEDS: CEFEPIME 2 GM in SODIUM CHLORIDE 0.9% 100 ML IVPB SCH (09:33)
[2020-07-12] MEDS: IPRATROPIUM-ALBUTEROL 3 ML NEB INHALATION SCH ×4 (10:30→19:47)
--- NOTE | 2020-07-12 15:28 | P.PN ---
Subjective Progress Note Date: 07/12/20 Principal diagnosis: Acute febrile illness suspect secondary to postobstructive pneumonia secondary to a right hilar mass, CoVID 19 and influenza negative 70-year-old white female patient of Dr. Emilio Siddiqi with the past medical history of COPD, hypertension, hyperlipidemia, chronic hypoxic respiratory failure on home oxygen at 2 L, osteoarthritis, hypothyroidism, former smoker who presented to the emergency department on 07/07/2020 for evaluation of shortness of breath, fever, mild nausea, ration denied any loss of smell or taste, she had a recent history of pneumonia about a month ago. She follows with Dr. Longoria in the pulmonary office, and she underwent bronchoscopy with airway examination and bronchoalveolar lavage and endobronchial biopsies were taken of the right middle lobe, transbronchial biopsies of the right middle lobe, brushes of the right middle lobe and washes of the right middle lobe by Dr. Longoria. However the biopsies were nondiagnostic, showing virtually acellular specimen consisting of blood. Patient was treated with antibiotics, with a plan of repeat bronchoscopy with biopsies probably under electromagnetic navigation. Chest x-ray in [facility] showed right lower lobe pneumonia with more diffuse appearance compared to most recent chest x-ray from 06/03/2020. COVID 19 was negative, influenza was negative. Patient does have a liver leukocytosis with white blood cell, 22.5, hemoglobin of 12, sodium was 134, potassium 5.6, B1 is 23, creatinine 0.6, lactic acid was within normal limits, LDH was 823, CRP was 44.8, pro calcitonin level was 0.20, patient was febrile on presentation with T-max of 103.2F. She is still on supplemental oxygen at 2 L with a pulse ox of 91%. Feels short of breath on exertion, but denies any chest discomfort, or hemoptysis. She is on antibiotic coverage in the form of Levaquin, she is pen ALLERGIC, we will add clindamycin to the current antibiotic regimen for a possibility of postobstructive pneumonia On 07/09/2020 patient seen in follow-up on medical surgical floor. Patient ruled out for COVID 19, influenza screen was also negative. She looks better on today's exam, still has a congested cough, though short of breath, but overall she is stable, she is on 2 L of oxygen pulse ox is 94%, hemodynamically she is stable, she did have a fever today, with a T-max of 100.1F. On today's labs her white count has further increased to 32.3, in part due to steroids, hemoglobin is 11.9, procalcitonin level was 0.20, electrolytes and renal profile were within normal limits, her LFTs were within normal limits. Blood culture has shown no growth. Her current antibiotic coverage includes cefepime, Levaquin. ID service is following, sputum culture has been sent and is pending at this time. Overall she is feeling better, she is able to take deeper breath, in the chest pain under the right breast has improved Patient is seen today 07/10/2020 in follow-up on the regular medical floor. She is currently sitting up at the bedside. Awake and alert in no acute distress. Breathing a bit easier today compared to yesterday. 18 O2 saturation low 90s on 3 L/m per nasal cannula. She's afebrile. Blood culture reveals no growth. Sputum culture pending. White count 26.3. Hemoglobin 11.2. Sodium 137. Potassium 4.1. Creatinine 0.7. Remains on bronchodilators, IV Solu-Medrol, Singulair. Continued on antibiotics in the form of cefepime and Levaquin. The patient is seen today 07/12/2020 follow-up on the regular medical floor. She is currently sitting up at the bedside. Awake and alert in no acute distress. Maintaining good O2 saturations in the mid 90s on 3 L/m per nasal cannula. She's afebrile. Blood culture reveals no growth. Sputum culture reveals no growth. White count 16.0. Hemoglobin 11.1. Sodium 137. Potassium 5.1. Creatinine 0.6. She remains on bronchodilators, IV Solu-Medrol, antibiotics in the form of cefepime and Levaquin. ID is on the case. Objective - Vital Signs Vital signs: Vital Signs Temp 98.3 F 07/12/20 07:04 Pulse 92 07/12/20 11:05 Resp 17 07/12/20 07:04 BP 164/95 07/12/20 07:04 Pulse Ox 96 07/12/20 07:04 Intake & Output 07/11/20 07/12/20 07/12/20 18:59 06:59 18:59 Intake Total 1700 Balance 1700 Intake: Intake, IV Titration 500 Amount Cefepime 2 gm In Sodium 100 Chloride 0.9% 100 ml @ 25 mls/hr IVPB Q12HR [facility] Rx #:[id number] Sodium Chloride 0.9% 1, 400 000 ml @ 100 mls/hr IV . Q10H [facility] Rx#:[id number] Oral 1200 Other: Voiding Method Toilet Toilet # Voids 1 - Exam GENERAL EXAM: Alert, 70-year-old female patient on 3 L of oxygen and pulse ox 96%, comfortable in no apparent distress. HEAD: Normocephalic/atraumatic. EYES: Normal reaction of pupils, equal size. Conjunctiva pink, sclera white. NOSE: Clear with pink turbinates. THROAT: No erythema or exudates. NECK: No masses, no JVD, no thyroid enlargement, no adenopathy. CHEST: No chest wall deformity. Symmetrical expansion. LUNGS: Equal air entry with right lower lobe crackles, diminished breath sounds CVS: Regular rate and rhythm, normal S1 and S2, no gallops, no murmurs, no rubs ABDOMEN: Soft, nontender. No hepatosplenomegaly, normal bowel sounds, no guarding or rigidity. EXTREMITIES: No clubbing, no edema, no cyanosis, 2+ pulses and upper and lower extremities. MUSCULOSKELETAL: Muscle strength and tone normal. SPINE: No scoliosis or deformity SKIN: No rashes CENTRAL NERVOUS SYSTEM: No focal deficits, tone is normal in all 4 extremities. PSYCHIATRIC: Alert and oriented -3. Appropriate affect. Intact judgment and insight. - Labs CBC & Chem 7: 07/11/20 06:53 07/11/20 06:53 Labs: Microbiology - Last 24 Hours (Table) 07/07/20 19:23 Blood Culture - Preliminary Blood No Growth after 96 hours 07/09/20 12:09 Gram Stain - Final Sputum Sputum Culture - Final Assessment and Plan Assessment: #1. Acute febrile illness, shortness of breath related to possibility of postobstructive pneumonia, related to right perihilar mass with associated postobstructive infiltrate and volume loss. COVID 19 and influenza negative #2. Pleuritic chest pain, possibility of pulmonary embolism ruled out #3. Recent history of pneumonia, and bronchoscopy with biopsies of right middle lobe, which were nondiagnostic #4. History of COPD on home oxygen use at 2 L #5. Hypertension #6. Hyperlipidemia #7. GERD/reflux #8. Former smoker Plan: The patient was seen and evaluated by Dr. Waller She is cleared for discharge from the pulmonary standpoint Complete course of Levaquin for 7 to 10 days per ID services Complete course of prednisone taper Continue home oxygen and home pulmonary medications Follow-up with Dr. Longoria in 1-2 weeks' time I, the cosigning physician, performed a history & physical examination of the patient. Lungs sounds with crackles in the right posterior base, diminished. Maintaining good O2 saturations in the 90s on 3 L/m per nasal cannula. I disc ussed the assessment and plan of care with my nurse practitioner, Aleksandra Crook. I attest to the above note as dictated by her.
--- NOTE | 2020-07-12 19:27 | P.PN ---
Subjective Progress Note Date: 07/11/20 70-year-old white female patient of Dr. Emilio Siddiqi with the past medical history of COPD, hypertension, hyperlipidemia, chronic hypoxic respiratory failure on home oxygen at 2 L, osteoarthritis, hypothyroidism, former smoker who presented to the emergency department on 07/07/2020 for evaluation of shortness of breath, fever, mild nausea, ration denied any loss of smell or taste, she had a recent history of pneumonia about a month ago. She follows with Dr. Longoria in the pulmonary office, and she underwent bronchoscopy with airway examination and bronchoalveolar lavage and endobronchial biopsies were taken of the right middle lobe, transbronchial biopsies of the right middle lobe, brushes of the right middle lobe and washes of the right middle lobe by Dr. Longoria. However the biopsies were nondiagnostic, showing virtually acellular specimen consisting of blood. Patient was treated with antibiotics, with a plan of repeat bronchoscopy with biopsies probably under electromagnetic navigation. Chest x-ray in emergency department showed right lower lobe pneumonia with more diffuse appearance compared to most recent chest x-ray from 06/03/2020. COVID 19 was negative, influenza was negative. Patient does have a liver leukocytosis with white blood cell, 22.5, hemoglobin of 12, sodium was 134, potassium 5.6, B1 is 23, creatinine 0.6, lactic acid was within normal limits, LDH was 823, CRP was 44.8, pro calcitonin level was 0.20, patient was febrile on presentation with T- max of 103.2F. She is still on supplemental oxygen at 2 L with a pulse ox of 91%. Feels short of breath on exertion, but denies any chest discomfort, or hemoptysis. She is on antibiotic coverage in the form of Levaquin, she is pen ALLERGIC, we will add clindamycin to the current antibiotic regimen for a possibility of postobstructive pneumonia 07/11/2020 patient seen in follow-up. She is awake and alert, she is currently on 3 L of oxygen pulse ox of 96%. She is breathing easier, appears to be in no acute distress. She's been afebrile for last 48 hours. Leukocytosis continues to improve, white blood cell count down to 16.0, electrolytes and renal profile are unremarkable. Patient has been treated with a combination of cefepime and Levaquin, IV steroids, breathing treatments, breathing significantly improved. Her blood and sputum cultures show no growth. Patient was offered bronchoscopy and biopsy while inpatient however she wants to go home in follow-up on an outpatient basis. She has had no acute events overnight. Plan is to continue current IV antibiotics with possible switch to oral in next 24 hours per ID recommendations Objective - Vital Signs Vital signs: Vital Signs Temp 98.2 F 07/11/20 06:00 Pulse 90 07/11/20 09:42 Resp 20 07/11/20 06:00 BP 166/65 07/11/20 06:00 Pulse Ox 98 07/11/20 06:00 Intake & Output 07/10/20 07/11/20 07/11/20 18:59 06:59 18:59 Intake Total 700 300 Balance 700 300 Intake: Intake, IV Titration 700 300 Amount Cefepime 2 gm In Sodium 100 Chloride 0.9% 100 ml @ 25 mls/hr IVPB Q12HR [facility] Rx #:[id number] Sodium Chloride 0.9% 1, 600 300 000 ml @ 100 mls/hr IV . Q10H [facility] Rx#:[id number] Other: Voiding Method Toilet Toilet Toilet - Exam - Constitutional General appearance: Present: average body habitus, cooperative, no acute distress - EENT Eyes: Present: anicteric sclerae, EOMI, PERRLA, normal appearance ENT: Present: hearing grossly normal, normal oropharynx Ears: bilateral: normal - Neck Neck: Present: normal ROM. Absent: lymphadenopathy, rigidity, thyromegaly Carotids: negative: bruit present Thyroid: bilateral: normal size, negative: enlarged, nodule - Respiratory Respiratory: bilateral: CTA, negative: rales, rhonchi, wheezing - Cardiovascular Rhythm: regular Heart sounds: normal: S1, S2 Abnormal Heart Sounds: Absent: systolic murmur, diastolic murmur - Gastrointestinal General gastrointestinal: Present: normal bowel sounds, soft. Absent: distended, organomegaly, tenderness - Genitourinary Genitourinary Comment(s): deferred - Integumentary Integumentary: Present: normal turgor. Absent: jaundiced, rash, ulcer - Neurologic Neurologic: Present: CNII-XII intact. Absent: focal deficits - Musculoskeletal Musculoskeletal: Present: gait normal, strength equal bilaterally - Psychiatric Psychiatric: Present: A&O x's 3, appropriate affect, intact judgment & insight - Labs CBC & Chem 7: 07/11/20 06:53 07/11/20 06:53 Labs: Abnormal Lab Results - Last 24 Hours (Table) 07/11/20 07/11/20 Range/Units 06:53 06:53 WBC 16.0 H (3.8-10.6) k/uL Hgb 11.1 L (11.4-16.0) gm/dL Neutrophils # 14.1 H (1.3-7.7) k/uL BUN/Creatinine Ratio 28.33 H (12.00-20.00) Ratio Glucose 151 H (70-110) mg/dL Microbiology - Last 24 Hours (Table) 07/09/20 12:09 Gram Stain - Final Sputum Sputum Culture - Final 07/07/20 19:23 Blood Culture - Preliminary Blood No Growth after 72 hours Assessment and Plan Assessment: #1. Acute febrile illness, shortness of breath related to possibility of postobstructive pneumonia, related to right perihilar mass with associated postobstructive infiltrate and volume loss. COVID 19 and influenza negative #2. Pleuritic chest pain, possibility of pulmonary embolism ruled out, improved #3. Recent history of pneumonia, and bronchoscopy with biopsies of right middle lobe, which were nondiagnostic #4. History of COPD on home oxygen use at 2 L #5. Hypertension #6. Hyperlipidemia #7. GERD/reflux #8. Former smoker Plan: Continue current medical treatment, vital signs have been stable, afebrile, no growth on the blood and sputum cultures. She is breathing easier, pleurisy has improved. Patient has declined bronchoscopy with biopsies while in the hospital, she was to follow-up on an outpatient basis. She's had no acute events overnight. She's been afebrile for 48 hours. She is breathing comfortably. From pulmonary perspective she is stable for discharge home with antibiotics of ID service recommendations, she will need outpatient follow-up with Dr. Longoria in the office in 7-10 days, she will be set up for bronchoscopy with biopsies
--- NOTE | 2020-07-12 19:29 | P.DS ---
Providers Date of admission: 07/07/20 21:04 Attending physician: Prince Ward Consults: 07/08/20 11:52 Consult Physician Routine Consulting Provider: Lindsey Fuentes Consult Reason/Comments: Pneumonia Do you want consulting provider notified?: Yes 07/08/20 19:07 Consult Physician Routine Consulting Provider: Lexa Mane Consult Reason/Comments: pneumonia Do you want consulting provider notified?: Yes Primary care physician: Devang Jhaveri [facility] Course: 70-year-old white female patient of Dr. Emilio Siddiqi with the past medical history of COPD, hypertension, hyperlipidemia, chronic hypoxic respiratory failure on home oxygen at 2 L, osteoarthritis, hypothyroidism, former smoker who presented to the emergency department on 07/07/2020 for evaluation of shortness of breath, fever, mild nausea, ration denied any loss of smell or taste, she had a recent history of pneumonia about a month ago. She follows with Dr. Longoria in the pulmonary office, and she underwent bronchoscopy with airway examination and bronchoalveolar lavage and endobronchial biopsies were taken of the right middle lobe, transbronchial biopsies of the right middle lobe, brushes of the right middle lobe and washes of the right middle lobe by Dr. Longoria. However the biopsies were nondiagnostic, showing virtually acellular specimen consisting of blood. Patient was treated with antibiotics, with a plan of repeat bronchoscopy with biopsies probably under electromagnetic navigation. Chest x-ray in emergency department showed right lower lobe pneumonia with more diffuse appearance compared to most recent chest x-ray from 06/03/2020. COVID 19 was negative, influenza was negative. Patient does have a liver leukocytosis with white blood cell, 22.5, hemoglobin of 12, sodium was 134, potassium 5.6, B1 is 23, creatinine 0.6, lactic acid was within normal limits, LDH was 823, CRP was 44.8, pro calcitonin level was 0.20, patient was febrile on presentation with T- max of 103.2F. She is still on supplemental oxygen at 2 L with a pulse ox of 91%. Feels short of breath on exertion, but denies any chest discomfort, or hemoptysis. She is on antibiotic coverage in the form of Levaquin, she is pen ALLERGIC, we will add clindamycin to the current antibiotic regimen for a possibility of postobstructive pneumonia On 07/09/2020 patient seen in follow-up on medical surgical floor. Patient ruled out for COVID 19, influenza screen was also negative. She looks better on today's exam, still has a congested cough, though short of breath, but overall she is stable, she is on 2 L of oxygen pulse ox is 94%, hemodynamically she is stable, she did have a fever today, with a T-max of 100.1F. On today's labs her white count has further increased to 32.3, in part due to steroids, hemoglobin is 11.9, procalcitonin level was 0.20, electrolytes and renal profile were within normal limits, her LFTs were within normal limits. Blood culture has shown no growth. Her current antibiotic coverage includes cefepime, Le vaquin. ID service is following, sputum culture has been sent and is pending at this time. Overall she is feeling better, she is able to take deeper breath, in the chest pain under the right breast has improved Patient is seen today 07/10/2020 in follow-up on the regular medical floor. She is currently sitting up at the bedside. Awake and alert in no acute distress. Breathing a bit easier today compared to yesterday. 18 O2 saturation low 90s on 3 L/m per nasal cannula. She's afebrile. Blood culture reveals no growth. Sputum culture pending. White count 26.3. Hemoglobin 11.2. Sodium 137. Potassium 4.1. Creatinine 0.7. Remains on bronchodilators, IV Solu-Medrol, Singulair. Continued on antibiotics in the form of cefepime and Levaquin. The patient is seen today 07/12/2020 follow-up on the regular medical floor. She is currently sitting up at the bedside. Awake and alert in no acute distress. Maintaining good O2 saturations in the mid 90s on 3 L/m per nasal cannula. She's afebrile. Blood culture reveals no growth. Sputum culture reveals no growth. White count 16.0. Hemoglobin 11.1. Sodium 137. Potassium 5.1. Creatinine 0.6. She remains on bronchodilators, IV Solu-Medrol, antibiotics in the form of cefepime and Levaquin. ID is on the case and recommending Complete course of Levaquin for 7 to 10 days per ID services. Patient Condition at Discharge: Serious Plan - Discharge Summary Discharge Rx Participant: No New Discharge Prescriptions: New Losartan [Cozaar] 100 mg PO DAILY tab Levofloxacin [Levaquin] 750 mg PO HS #7 tab Continue Montelukast [Singulair] 10 mg PO HS Levothyroxine Sodium [Synthroid] 50 mcg PO DAILY Calcium Carbonate [Calcium] 1,200 mg PO DAILY Multivit with Calcium,Iron,Min [Women's Daily Multivitamin] 1 tab PO DAILY Ascorbic Acid [Vitamin C] 500 mg PO DAILY Fluticasone/Salmeterol [Advair Hfa 230-21 Mcg Inhaler] 2 puff INHALATION RT- BID Magnesium 200 mg PO DAILY [place]-3 Fatty Acids/Fish Oil [Fish Oil 1,000 mg Softgel] 1 cap PO DAILY Naproxen Sodium [Aleve] 220 mg PO HS PRN PRN Reason: Pain L.acidoph,Paracasei, B.lactis [Probiotic] 1 cap PO DAILY Cholecalciferol [Vitamin D3 (25 Mcg = 1000 Iu)] 1,000 unit PO DAILY Rosuvastatin Calcium [Crestor] 10 mg PO HS Ubidecarenone [Co Q-10] 100 mg PO DAILY predniSONE 5 mg PO DAILY Isosorbide Mononitrate [Isosorbide Mononitrate ER] 30 mg PO DAILY Spironolactone [Aldactone] 12.5 mg PO DAILY Omeprazole 20 mg PO DAILY Furosemide [Lasix] 40 mg PO DAILY Ipratropium-Albuterol Nebulize [Duoneb 0.5 mg-3 mg/3 ml Soln] 3 ml INHALATION RT-QID Discontinued Losartan Potassium [Cozaar] 100 mg PO DAILY Discharge Medication List Levothyroxine Sodium [Synthroid] 50 mcg PO DAILY 04/10/14 [History] Montelukast [Singulair] 10 mg PO HS 04/10/14 [History] Ascorbic Acid [Vitamin C] 500 mg PO DAILY 02/23/16 [History] Calcium Carbonate [Calcium] 1,200 mg PO DAILY 02/23/16 [History] Fluticasone/Salmeterol [Advair Hfa 230-21 Mcg Inhaler] 2 puff INHALATION RT-BID 02/23/16 [History] Multivit with Calcium,Iron,Min [Women's Daily Multivitamin] 1 tab PO DAILY 02/23/16 [History] Magnesium 200 mg PO DAILY 06/28/16 [History] Cholecalciferol [Vitamin D3 (25 Mcg = 1000 Iu)] 1,000 unit PO DAILY 04/10/18 [History] L.acidoph,Paracasei, B.lactis [Probiotic] 1 cap PO DAILY 04/10/18 [History] Naproxen Sodium [Aleve] 220 mg PO HS PRN 04/10/18 [History] [place]-3 Fatty Acids/Fish Oil [Fish Oil 1,000 mg Softgel] 1 cap PO DAILY 04/10/18 [History] Rosuvastatin Calcium [Crestor] 10 mg PO HS 04/10/18 [History] Ubidecarenone [Co Q-10] 100 mg PO DAILY 04/10/18 [History] Isosorbide Mononitrate [Isosorbide Mononitrate ER] 30 mg PO DAILY 05/21/20 [History] predniSONE 5 mg PO DAILY 05/21/20 [History] Furosemide [Lasix] 40 mg PO DAILY 07/07/20 [History] Ipratropium-Albuterol Nebulize [Duoneb 0.5 mg-3 mg/3 ml Soln] 3 ml INHALATION RT-QID 07/07/20 [History] Omeprazole 20 mg PO DAILY 07/07/20 [History] Spironolactone [Aldactone] 12.5 mg PO DAILY 07/07/20 [History] Levofloxacin [Levaquin] 750 mg PO HS #7 tab 07/12/20 [Rx] Losartan [Cozaar] 100 mg PO DAILY tab 07/12/20 [Rx] Follow up Appointment(s)/Referral(s): Devang Jhaveri MD [Primary Care Provider] - 1-2 days Patient Instructions/Handouts: Pneumonia (DC) Discharge Disposition: HOME SELF-CARE
[2020-07-12 19:49] VITALS: BP 164/82; RESP 16; TEMP 98.6
[2020-07-12 19:59] VITALS: PULSE 80
[2020-07-12] MEDS: LEVOFLOXACIN 750 MG TAB PO SCH (20:10)
[2020-07-12] MEDS: MONTELUKAST 10 MG TAB PO SCH (20:10)
--- NOTE | 2020-07-12 23:22 | PN ---
PROGRESS NOTE DATE OF SERVICE: 07/12/2020 REASON FOR FOLLOWUP: Pneumonia. INTERVAL HISTORY: Patient is seen on rounds this afternoon. The patient has been afebrile. She has been breathing comfortably. Denies having any chest pain. Minimal cough. No nausea, vomiting, abdominal pain, no diarrhea. PHYSICAL EXAMINATION: Blood pressure 164/82 with a pulse of 90, temperature 98.6. She is 97% on 2 L nasal cannula. General description is an elderly female up in the bed in no distress. Respiratory system: Unlabored breathing, decreased breath sounds at the base, no wheeze. Heart S1, S2. Regular rate and rhythm. Abdomen soft, no tenderness. LABS: No new labs have been obtained today. Blood and sputum cultures have been negative. IMPRESSION/PLAN: Pneumonia, community-acquired. The sputum is negative for any resistant pathogen. She will finish with oral Levaquin, prescription was provided for the patient and close outpatient followup. MMODL / IJN: [id number] /
== END 2020-07-12 20:45 | disposition home or self-care (01) | DRG 871 ==
LOC: EC 18:44 → 4SSUR 21:04
PROVIDERS: ADMIT Hospitalist; ATTEND Hospitalist
DX: A41.50 Gram-negative sepsis, unspecified (principal); J96.21 Acute and chronic respiratory failure with hypoxia; J15.6 Pneumonia due to other Gram-negative bacteria; J90 Pleural effusion, not elsewhere classified; Z99.81 Dependence on supplemental oxygen; J43.9 Emphysema, unspecified; Z20.828 Contact with and (suspected) exposure to other viral communicable diseases; M19.90 Unspecified osteoarthritis, unspecified site; Z79.84 Long term (current) use of oral hypoglycemic drugs; Z79.51 Long term (current) use of inhaled steroids; Z79.890 Hormone replacement therapy; Z79.899 Other long term (current) drug therapy; Z88.5 Allergy status to narcotic agent; Z88.0 Allergy status to penicillin; Z88.2 Allergy status to sulfonamides; Z88.8 Allergy status to other drugs, medicaments and biological substances; E03.9 Hypothyroidism, unspecified; E05.90 Thyrotoxicosis, unspecified without thyrotoxic crisis or storm; E78.5 Hyperlipidemia, unspecified; E87.5 Hyperkalemia; T46.4X5A Adverse effect of angiotensin-converting-enzyme inhibitors, initial encounter; I10 Essential (primary) hypertension; K21.9 Gastro-esophageal reflux disease without esophagitis; R91.1 Solitary pulmonary nodule; Z87.891 Personal history of nicotine dependence; Z86.69 Personal history of other diseases of the nervous system and sense organs; Z87.01 Personal history of pneumonia (recurrent); Z90.49 Acquired absence of other specified parts of digestive tract; Z90.89 Acquired absence of other organs; Z87.19 Personal history of other diseases of the digestive system; Z98.890 Other specified postprocedural states; Z82.49 Family history of ischemic heart disease and other diseases of the circulatory system; Z82.0 Family history of epilepsy and other diseases of the nervous system
CPT/HCPCS: 36415; 71045; 71275; 80048; 80053; 82728; 83605; 83615; 83735; 84145; 85025; 85027; 85610; 85730; 86140; 87040; 87070; 87205; 87502; 87635; 93005; 94640; 94760; 99291

== ENCOUNTER → 2020-07-25 | Outpatient (CLI) | payer MEDICARE ==
--- NOTE | 2020-07-28 08:03 | PE ---
EXAMINATION TYPE: PET CT fusion skull to thigh DATE OF EXAM: 07/25/2020 COMPARISON: Chest CT July 08, 2020 and older studies HISTORY: Solitary pulmonary nodule, abnormal CT TECHNIQUE: Following the intravenous administration of 10.17 mCi of F-18 FDG, whole body images are performed from the skull base to the midthigh. Images are reviewed on the computer in the coronal, a xial, and sagittal planes. Reconstructed rotating images are created on independent workstation and reviewed on the computer. A localization and attenuation correction CT is performed in conjunction with the PET scan. Blood glucose level equals 112. SCAN: Initial Scan FINDINGS: SKULL BASE AND NECK: No areas of suspicious hypermetabolic uptake. CHEST, MEDIASTINUM, AND HILAR REGION: Background [id number] underlying emphysematous change red emonstrated. There is masslike consolidation right midlung redemonstrated though this is improved fro m most recent CT with some areas of central and peripheral aeration noted. There is hypermetabolic up take. Finding is completely new from January 24, 2021 shows continued improvement from June 10, 2020. Max SUV is 5.28 in the posterior periphery near axial image 88. No additional areas of abnormal hypermetabolic uptake. No suspicious adenopathy. There is small nonde pendent medial lower lung right-sided pleural fluid collection on current study. ABDOMEN AND PELVIS: No suspicious adrenal masses. Normal excretion. No suspicious hypermetabolic upta ke. OSSEOUS STRUCTURES: No suspicious hypermetabolic uptake. OTHER CT: Nasal septum deviated to right of midline. Moderate coronary artery calcification is presen t. Gallbladder not seen and presumed surgically absent. Moderate calcified plaque of the abdominal aorta extends into branch vessels. Anteverted uterus. Multilevel spurring in the lower thoracic spine. Vac uum disc phenomenon with moderate disc space narrowing lumbosacral junction. IMPRESSION: Changing masslike consolidation favors post infectious etiology given lungs were clear on January 25, 2020. Increased hypermetabolic uptake makes underlying mass or neoplasm not entirely exclu ded. Continued CT and/or PET/CT monitoring advised.
== END | disposition home or self-care (01) ==
LOC: RADPETMAIN 12:54
PROVIDERS: ATTEND Internal Medicine Critical Care Medicine
DX: R91.1 Solitary pulmonary nodule (principal)
CPT/HCPCS: 78815; A9552

== ENCOUNTER 2020-08-06 10:18 | Day surgery (SDC) | payer MEDICARE ==
[2020-08-04 11:48] VITALS: BMI 41.5
[~2020-08-06 10:18] MED LIST changes: +DEXAMETHASONE SOD PHOSPHATE 4 MG/ML 1 ML VIAL IV ONE; +HYDROmorphone 0.5 MG/0.5 ML SYRINGE IVP PRN; +LIDOCAINE 1% (10MG/ML) FOR IV START INTRADERMA PRN; +MIDAZOLAM 2 MG/2 ML VIAL IV PRN; -ONDANSETRON 4 MG/2 ML VIAL IVP PRN; -fentaNYL (PF) 50 MCG/ML 2 ML AMP IV PRN
[2020-08-06 10:55] VITALS: TEMP 97.5
[2020-08-06] MEDS ORDERED: ATROPINE SULFATE 0.4 MG/ML 1 ML VIAL ONE (11:03)
[2020-08-06 11:14] LABS: Glucose,Whole Blood 78 mg/dL (75-99)
--- NOTE | 2020-08-06 12:18 | CT ---
EXAMINATION TYPE: CT Chest wo con Veran Protocol DATE OF EXAM: 08/06/2020 COMPARISON: Nuclear medicine PET/CT 07/25/2020 HISTORY: lung nodule, pre veran scan CT DLP: 801 mGycm Automated exposure control for dose reduction was used. Helical imaging obtained through the chest fo r procedure planning purposes. FINDINGS: The abnormal attenuation in the right upper lobe seen on prior PET/CT with areas of hypermetabolic up take is again noted. There is a loculated effusion at the right lung base. Emphysematous changes are present within the lungs. No evident mediastinal, axillary, or hilar adenopathy. Coronary artery calc ifications are present. There is a small hiatal hernia. IMPRESSION: Helical imaging obtained through the chest for procedure planning purposes.
[2020-08-06] MEDS ORDERED: KETAMINE 10 MG/ML 20 ML VIAL ONE (12:32)
[2020-08-06] MEDS ORDERED: PROPOFOL 10 MG/ML 20 ML VIAL IV ONE (12:32)
[2020-08-06] MEDS ORDERED: MIDAZOLAM 2 MG/2 ML VIAL ONE (12:32)
[2020-08-06] MEDS ORDERED: fentaNYL (PF) 50 MCG/ML 2 ML AMP ONE (12:32)
[2020-08-06] MEDS ORDERED: SUCCINYLCHOLINE CHLORIDE 100 MG/5 ML SYR IV ONE (12:32)
[2020-08-06] MEDS ORDERED: LIDOCAINE 1% INJ 10MG/ML (20 ML MDV) ONE (12:32)
[2020-08-06 14:04] VITALS: RESP 16
--- NOTE | 2020-08-06 14:12 | PCN ---
PROCEDURE NOTE OPERATORS: Dr. Longoria along with Dr. Crook and Jo Cifuentes. PROCEDURE: A navigational bronchoscopy. PREOPERATIVE DIAGNOSIS: Right hilar mass. POSTOPERATIVE DIAGNOSIS: Right hilar mass. DESCRIPTION OF PROCEDURE: There was informed consent. There was universal timeout. DEREK and Dr. Sanchez provided general anesthesia. The patient's procedure took place in room #1. The procedure was a bronchoscopy navigational, with biopsies of right upper lobe and also right middle lobe, needle biopsies of the right middle lobe, brushes of the right middle lobe and BAL of the right middle lobe. After the patient was adequately sedated and being fully anesthetized, the bronchoscope was advanced through the bronchoscope adapter connected to the endotracheal tube. We had the endotracheal tube positioned above the tracheal cornelio. Next, we went into the right upper lobe under Veran guidance. We did multiple transbronchial biopsies to the right upper lobe. Subsequent to that, we went ahead and did again additional biopsies in the right middle lobe and we also did needle biopsies, transbronchial needle aspirations of the right middle lobe. We also washed the right middle lobe and brushed the right middle lobe. This was all done under electromagnetic navigational bronchoscopy. There was good localization of the lesion. The patient tolerated the procedure well. There was minimal bleeding. The patient will be recovered. There was no immediate complication. A chest x-ray will be ordered. MMODL / IJN: [id number] /
[2020-08-06 14:56] VITALS: BP 114/66; PULSE 77
--- NOTE | 2020-08-06 15:15 | XR ---
EXAMINATION TYPE: XR chest 1V portable DATE OF EXAM: 08/06/2020 HISTORY: Shortness of breath. COMPARISON: 07/08/2020 TECHNIQUE: Single view of the chest is submitted. FINDINGS: Demonstrated are scattered senescent parenchymal change. Right midlung zone and right lower lobe infiltrate with effusion persists. There is no evidence for p neumothorax. The left lung is clear. The heart is stable. Hilar and mediastinal structures are within normal limits. Degenerative changes are seen of the dorsal spine. IMPRESSION: 1. Right midlung zone and right lower lobe infiltrate with effusion persists. There is no evidence f or pneumothorax. The left lung is clear.
[2020-08-06 15:38] LABS: Appearance,BF Bloody; Nucleated Cells, Body Fluid 1500 /uL; RBC, Body Fluid 99000 /uL
[2020-08-06 15:50] LABS: Mononuclear WBC,Body Fluid 75 %; Polynuclear WBC,Body Fluid 25 %; Total Cells Counted,Body Fluid 100
== END 2020-08-06 14:30 | disposition home or self-care (01) ==
LOC: ORWHC2ENDO 10:18
PROVIDERS: ATTEND Internal Medicine Critical Care Medicine
DX: R91.8 Other nonspecific abnormal finding of lung field (principal); J44.9 Chronic obstructive pulmonary disease, unspecified; K21.9 Gastro-esophageal reflux disease without esophagitis; E78.2 Mixed hyperlipidemia; E03.9 Hypothyroidism, unspecified; I10 Essential (primary) hypertension; J30.9 Allergic rhinitis, unspecified; Z82.49 Family history of ischemic heart disease and other diseases of the circulatory system; Z87.891 Personal history of nicotine dependence; Z90.49 Acquired absence of other specified parts of digestive tract; Z98.890 Other specified postprocedural states; Z79.890 Hormone replacement therapy; Z79.51 Long term (current) use of inhaled steroids; Z79.52 Long term (current) use of systemic steroids; Z79.899 Other long term (current) drug therapy; Z88.5 Allergy status to narcotic agent; Z88.0 Allergy status to penicillin; Z88.2 Allergy status to sulfonamides; Z88.8 Allergy status to other drugs, medicaments and biological substances
CPT/HCPCS: 87798 ×3; 87496; 87498; 87529; 88104; 88108; 88305; 88173; 89050; 87252; 87502; 87634; 87070; 87205; 87116; 87102; 87206; 71045; 71250; 31628; 31623; 31627; J2250; J0461; J2001; J3010; J0330; J2704; 31624; 31625; 31629

== ENCOUNTER → 2020-10-07 | Outpatient (CLI) | payer MEDICARE ==
[2020-10-07 12:40] LABS: African American GFR (CKD) >90 (>60 ml/min/1.73 sqM); Blood Urea Nitrogen 27 mg/dL (7-17); Non-African American GFR(CKD) >90 (>60 ml/min/1.73 sqM)
--- NOTE | 2020-10-07 17:24 | CT ---
EXAMINATION TYPE: CT chest w con DATE OF EXAM: 10/07/2020 COMPARISON: CT chest 06/10/2020, 08/06/2020 HISTORY: Lung nodule. CT DLP: 516.2 mGycm Automated exposure control for dose reduction was used. CONTRAST: CT scan of the chest is performed with IV Contrast, patient injected with 100 mL of Isovue M300. FINDINGS: LUNGS: The lungs are remarkable for probable scarring in the right mid lung, right middle lobe and pe rihilar location, right upper lobe, there is some extension of abnormal soft tissue superior laterall y in the right hemithorax, there is some local pleural thickening. Parenchymal bands are present with in the right lung, some minimal groundglass opacity in the right midlung, pleural extension noted lat erally and anteriorly as well, some minimal air bronchograms are much less conspicuous and extensive as compared to prior Emphysematous changes are present within the lungs MEDIASTINUM: There are no greater than 1 cm hilar or mediastinal lymph nodes. No pericardial effusi on is seen. There are moderate coronary artery calcifications. There is a small hiatal hernia. AORTA: No additional significant abnormality is seen. OTHER: Adrenal glands show stable appearance. IMPRESSION: Findings may represent some residual scarring in the right lung
== END | disposition home or self-care (01) ==
LOC: RADCTMAIN 11:46
PROVIDERS: ATTEND Internal Medicine Critical Care Medicine
DX: R91.1 Solitary pulmonary nodule (principal)
CPT/HCPCS: 82565; 84520; 71260; 36415; Q9967

== ENCOUNTER → 2021-05-07 | Outpatient (CLI) | payer MEDICARE ==
[2021-05-07 11:56] LABS: African American GFR (CKD) >90 (>60 ml/min/1.73 sqM); Blood Urea Nitrogen 23 mg/dL (7-17); Non-African American GFR(CKD) >90 (>60 ml/min/1.73 sqM)
--- NOTE | 2021-05-07 12:43 | CT ---
EXAMINATION TYPE: CT chest w con DATE OF EXAM: 05/07/2021 COMPARISON: 10/07/2020 HISTORY: f/u nodules, COPD CT DLP: 582.7 mGycm Automated exposure control for dose reduction was used. CONTRAST: CT scan of the chest is performed with IV Contrast, patient injected with 100 mL of Isovue 300. FINDINGS: LUNGS: Density about the right perihilar region persists although slightly less conspicuous than prio r study and likely reflects of parenchymal scarring. Additional linear scarring noted at the lung bas es anteriorly. No new nodules identified. MEDIASTINUM: There are no greater than 1 cm hilar or mediastinal lymph nodes. No pericardial effusi on is seen. Thoracic aorta is of normal caliber. The heart is not enlarged. UPPER ABDOMEN: No significant abnormality appreciated. OTHER: No additional significant abnormality is seen. IMPRESSION: Parenchymal scarring persists although appears to be improved relative to the prior study. No distinc t mass identified at this time. Continued follow-up advised.
== END | disposition home or self-care (01) ==
LOC: RADCTMAIN 10:53
PROVIDERS: ATTEND Internal Medicine Critical Care Medicine
DX: J98.4 Other disorders of lung (principal)
CPT/HCPCS: 82565; 84520; 71260; 36415; Q9967

== ENCOUNTER 2022-02-10 08:44 | Day surgery (SDC) | payer MEDICARE ==
[2022-02-08 14:37] VITALS: BMI 42.9
[~2022-02-10 08:44] MED LIST changes: -ALBUTEROL NEB (CONC) 2.5 MG/0.5 ML INHALATION ONE; -ATROPINE SULFATE 0.4 MG/ML 1 ML VIAL IM ONE; -DEXAMETHASONE SOD PHOSPHATE 4 MG/ML 1 ML VIAL IV ONE; -HYDROmorphone 0.5 MG/0.5 ML SYRINGE IVP PRN; -LIDOCAINE 2% (PF) 20 MG/ML 5 ML VIAL INHALATION ONE; -LIDOCAINE VISCOUS 300 MG/15 ML CUP MUCOUS MEM ONE; -MIDAZOLAM 2 MG/2 ML VIAL IV PRN; -SODIUM CHLORIDE 0.9% 1,000 ML IV SCH
[2022-02-10 09:39] VITALS: TEMP 98
[2022-02-10] MEDS ORDERED: PROPOFOL 10 MG/ML 20 ML VIAL IV ONE (10:26)
[2022-02-10] MEDS ORDERED: LIDOCAINE 2% INJ 20 MG/ML (2 ML VIAL) ONE (10:26)
--- NOTE | 2022-02-10 10:46 | P.PCN ---
Date of Procedure: 02/10/22 Procedure(s) Performed: BRIEF HISTORY: Patient is a 72-year-old pleasant white female scheduled for an elective colonoscopy as a part of evaluation of prior history of colon polyps. Her last coloscopy was 5 years ago. PROCEDURE PERFORMED: Colonoscopy with biopsy and snare polypectomy. PREOPERATIVE DIAGNOSIS: History of colon polyps. IV sedation per Anesthesia. PROCEDURE: After informed consent was obtained, the patient, was brought into the endoscopy unit. IV sedation was administered by Anesthesia under continuous monitoring. Digital rectal examination was normal. Initially the Olympus CF-160 flexible video colonoscope was then inserted in the rectum, gradually advanced into the cecum without any difficulty. Careful examination was performed as the scope was gradually being withdrawn. Ileocecal valve and the appendiceal orifice were visualized and appeared normal. Prep was excellent. Mucosa of the cecum, ascending colon, appeared normal. In the transverse colon there was a 4 mm polyp that was removed by cold biopsy method millimeters polyp that was removed by snare polypectomy. In the descending colon there was a 3 mm sessile polyp removed by cold biopsy. Rest of the transverse colon, descending colon, sigmoid colon, and rectum appeared normal. Retroflexion was performed in the rectum and small internal hemorrhoids were seen. The patient tolerated the procedure well. IMPRESSION: 6 mm transverse colon polyp status post polypectomy 4 mm transverse colon polyp status post cold biopsy 3 mm descending colon polyp status post cold biopsy Small internal hemorrhoids RECOMMENDATIONS: Findings of this examination were discussed with the patient well as her family.. He was advised to follow with the biopsy results. If the biopsies adenoma she can have a repeat colonoscopy in 5 years.
[2022-02-10 10:57] VITALS: RESP 18
[2022-02-10 12:05] VITALS: BP 163/79; PULSE 69
== END 2022-02-10 11:53 | disposition home or self-care (01) ==
LOC: ORWHC2ENDO 08:44
PROVIDERS: ATTEND Internal Medicine Gastroenterology
DX: Z12.11 Encounter for screening for malignant neoplasm of colon (principal); D12.3 Benign neoplasm of transverse colon; K64.8 Other hemorrhoids; Z86.010 Personal history of colon polyps; J44.9 Chronic obstructive pulmonary disease, unspecified; I10 Essential (primary) hypertension; E78.5 Hyperlipidemia, unspecified; M19.90 Unspecified osteoarthritis, unspecified site; E07.9 Disorder of thyroid, unspecified; K21.9 Gastro-esophageal reflux disease without esophagitis; Z87.891 Personal history of nicotine dependence; Z79.899 Other long term (current) drug therapy; Z79.890 Hormone replacement therapy; Z88.1 Allergy status to other antibiotic agents; Z88.5 Allergy status to narcotic agent; Z88.0 Allergy status to penicillin; Z88.2 Allergy status to sulfonamides; Z88.8 Allergy status to other drugs, medicaments and biological substances
CPT/HCPCS: 88305; 45380; 45385; J2704; J2001

== ENCOUNTER → 2022-03-26 | Outpatient (CLI) | payer MEDICARE ==
--- NOTE | 2022-03-29 19:39 | MM ---
Reason for Exam: Screening (asymptomatic). Last mammogram was performed 4 year(s) and 2 month(s) ago. Patient History: Menarche at age 10. First Full-Term at age 19. Postmenopausal. Patient used Hormonal Contraceptives for 3 years. Risk Values: Liz 5 year model risk: 1.7%. NCI Lifetime model risk: 4.3%. Prior Study Comparison: 06/16/2011 Screening Mammogram, [facility]. 06/23/2015 Screening Mammogram, [facility]. 01/16/2018 Bilateral Screening Mammogram, [facility]. Tissue Density: There are scattered fibroglandular densities. Findings: Analyzed By CAD. Chronic nodularity on the right. No significant change from prior exams. Overall Assessment: Benign, BI-RAD 2 Management: Screening Mammogram of both breasts in 1 year. 1. Patient should continue monthly self breast exams. 2. A clinical breast exam by your physician is recommended on an annual basis. 3. This exam should not preclude additional follow-up of suspicious palpable abnormalities. Electronically signed and approved by: Mili Do M.D. Radiologist
== END | disposition home or self-care (01) ==
LOC: RADMAMWWP 09:02
PROVIDERS: ATTEND Internal Medicine
DX: Z12.31 Encounter for screening mammogram for malignant neoplasm of breast (principal); Z78.0 Asymptomatic menopausal state
CPT/HCPCS: 77063; 77067

== ENCOUNTER → 2022-12-06 | Outpatient (CLI) | payer MEDICARE ==
[2022-12-06 15:34] LABS: African American GFR (CKD) 75.4 (60.0-200.0); Anion Gap 14.2 mmol/L (10.00-18.00); BUN/Creat Ratio 30.31 Ratio (12.00-20.00); Blood Urea Nitrogen 26.7 mg/dL (9.0-27.0); Non-African American GFR(CKD) 65.1 (60.0-200.0); Potassium 4.2 mmol/L (3.5-5.5)
== END | disposition home or self-care (01) ==
LOC: LABWHC1 09:21
PROVIDERS: ATTEND Internal Medicine
DX: I10 Essential (primary) hypertension (principal)
CPT/HCPCS: 36415; 80048

== ENCOUNTER → 2023-03-22 | Outpatient (CLI) | payer MEDICARE ==
--- NOTE | 2023-03-22 13:08 | US ---
EXAMINATION TYPE: US venous doppler duplex LE LT DATE OF EXAM: 03/22/2023 1:00 PM COMPARISON: NONE CLINICAL INDICATION: Female, 73 years old with history of M25.562 PAIN IN LEFT KNEE M79.662 PAIN IN L EFT LOW I80.9; no known trauma SIDE PERFORMED: left TECHNIQUE: The lower extremity deep venous system is examined utilizing real time linear array sonog lily with graded compression, doppler sonography and color-flow sonography. VESSELS IMAGED: Common Femoral Vein Deep Femoral Vein Greater Saphenous Vein * Femoral Vein Popliteal Vein Small Saphenous Vein * Proximal Calf Veins (* superficial vessels) Left Leg: negative for LLE dvt Results called to the office at the time of the exam. IMPRESSION: Grayscale, color doppler, spectral doppler imaging performed of the deep veins of the lo wer extremities. There is normal flow, compressibility, vascular waveforms.
== END | disposition home or self-care (01) ==
LOC: RADUSWWP 12:26
PROVIDERS: ATTEND Orthopaedic Surgery
DX: M25.562 Pain in left knee (principal); M79.662 Pain in left lower leg

== ENCOUNTER 2023-12-06 13:53 | Day surgery (SDC) | payer MEDICARE ==
[2023-12-06] MEDS: LACTATED RINGERS 1,000 ML IV SCH (14:24)
[2023-12-06] MEDS: ATROPINE SULFATE 0.4 MG/ML 1 ML VIAL IM ONE (14:27)
[2023-12-06] MEDS ORDERED: PROPOFOL 10 MG/ML 20 ML VIAL IV ONE (14:28)
[2023-12-06] MEDS ORDERED: MIDAZOLAM 2 MG/2 ML VIAL ONE (14:28)
[2023-12-06] MEDS ORDERED: LIDOCAINE 1% INJ 10MG/ML (20 ML MDV) ONE (14:28)
[2023-12-06] MEDS ORDERED: fentaNYL (PF) 50 MCG/ML 2 ML AMP ONE (14:28)
[2023-12-06] MEDS: LIDOCAINE 2% INJ 20 MG/ML INTRATRACH ONE (14:33)
[2023-12-06 14:59] VITALS: RESP 18; TEMP 97.2
[2023-12-06 15:44] VITALS: BP 115/67; PULSE 88
--- NOTE | 2023-12-06 22:02 | PCN ---
PROCEDURE NOTE PROCEDURE: Bronchoscopy, airway examination, therapeutic lavage, BAL right middle lobe. PREOPERATIVE DIAGNOSES: Chronic obstructive pulmonary disease exacerbation, retained secretions, infection. POSTOPERATIVE DIAGNOSES: Chronic obstructive pulmonary disease exacerbation, retained secretions, infection. FIRST RADIO SCRIPT WRITER: Dr. Aleksandra Crook. DESCRIPTION OF PROCEDURE: The patient's procedure took place in [facility] room #1. There was informed consent and universal time-out. Anesthesia provided general anesthesia. After the patient was adequately sedated and being fully monitored, the bronchoscope was inserted through the right nostril. It passed through the right nasopharynx into the oropharynx. The hypopharynx was identified. The hypopharyngeal structures appeared relatively normal including anterior commissure, true cords, false cords, arytenoids, piriform sinuses right and left, and vallecula. There were some secretions noted in the hypopharynx. After topicalization, the glottic opening was traversed with the bronchoscope. The trachea appeared relatively normal, although there were secretions noted throughout the trachea. They were suctioned with the aid of saline. The trachea otherwise appeared relatively normal. Tracheal cornelio was sharp. Right and left mainstem were topicalized. The right upper lobe and its 3 segments, right middle lobe and its 2 segments, right lower lobe and its 5 segments, the left upper lobe proper and its 2 segments, the lingula and its 2 segments, and the left lower lobe and its 4 segments all had similar findings, diffuse moderate to severe bronchitic changes. There were erythema and hyperemia on the airways. There was some mucosal friability and vascular engorgement. There was no dominant mass or tumor. There were secretions that were purulent throughout the airways. They were suctioned with saline. The bronchoscope was then wedged into the right middle lobe. We did a formal BAL. 30 mL of fluid was recovered. The patient tolerated the procedure well. Additional secretions were suctioned and the bronchoscope was withdrawn. The patient will be recovered. There was no immediate complication. The fluid will be sent for analysis. MMODL / IJN: [id number] /
[2023-12-07 05:13] LABS: Appearance,BF Blood Tinged (Clear); RBC, Body Fluid 12050 /UL (0-2000)
[2023-12-07 09:30] LABS: Nucleated Cells, Body Fluid 400 /UL
== END 2023-12-06 15:45 | disposition home or self-care (01) ==
LOC: ORWHC2ENDO 13:53
PROVIDERS: ATTEND Internal Medicine Critical Care Medicine
DX: J44.1 Chronic obstructive pulmonary disease with (acute) exacerbation (principal); I10 Essential (primary) hypertension; E03.9 Hypothyroidism, unspecified; J44.9 Chronic obstructive pulmonary disease, unspecified; K21.9 Gastro-esophageal reflux disease without esophagitis; Z79.890 Hormone replacement therapy; Z79.899 Other long term (current) drug therapy; Z88.5 Allergy status to narcotic agent; Z88.2 Allergy status to sulfonamides; Z88.0 Allergy status to penicillin
CPT/HCPCS: 88108; 88305; 89050; 87070; 87205; 87116; 87102; 87206; 31624; J2001 ×2; J2250; J0461; J3010; J2704

== ENCOUNTER 2024-01-11 16:34 | Inpatient (IN) | payer MEDICARE ==
--- NOTE | 2024-01-11 16:46 | ED ---
SOB HPI - General Chief Complaint: Shortness of Breath Stated Complaint: SOB Time Seen by Provider: 01/11/24 16:46 Source: patient, RN notes reviewed Mode of arrival: wheelchair Limitations: no limitations - History of Present Illness Initial Comments: This is a 73-year-old female with a past medical history of COPD presents the emergency department chief complaint of shortness of breath. Patient states that she has been suffering with ongoing pneumonia since the end of July 2023. Patient follows with Dr. Longoria where she has been given multiple antibiotics and steroids and her symptoms returned. States that she has been experiencing a productive cough, shortness of breath with exertion, difficulty breathing while laying down at night. She denies fevers, chest pain or pressure, dizziness, lightheadedness. Patient had an appointment with this afternoon where she was instructed to report to the emergency department for admission and IV antibiotics. Recent course of antibiotics was Levaquin that was completed on December 29. - Related Data Home Medications Medication Instructions Recorded Confirmed Levothyroxine Sodium [Synthroid] 50 mcg PO SUTUTHSA@69904/10/14 01/11/24 Montelukast [Singulair] 10 mg PO HS@192904/10/14 01/11/24 Calcium Carbonate [Calcium] 1,200 mg PO DAILY@69902/23/16 01/11/24 Fluticasone Propion/Salmeterol 2 puff INHALATION RT-BID@0700,192902/23/16 01/11/24 [Advair Hfa 230-21 Mcg Inhaler] Naproxen Sodium [Aleve] 220 mg PO BID PRN 04/10/18 01/11/24 Rosuvastatin Calcium [Crestor] 10 mg PO HS@192904/10/18 01/11/24 Ubidecarenone [Co Q-10] 200 mg PO DAILY@69904/10/18 01/11/24 predniSONE 5 mg PO DAILY@0700 05/21/20 01/11/24 Furosemide [Lasix] 40 mg PO BID@0700,1600 07/07/20 01/11/24 Ipratropium-Albuterol Nebulize 3 ml INHALATION RT-QID@08,12,17,22 07/07/20 01/11/24 [Duoneb 0.5 mg-3 mg/3 ml Soln] Omeprazole 20 mg PO DAILY@69907/07/20 01/11/24 Losartan Potassium [Cozaar] 100 mg PO DAILY@69908/04/20 01/11/24 Albuterol Sulfate [Proair Hfa] 2 puff INHALATION RT-Q6H PRN 02/08/22 01/11/24 Levothyroxine Sodium [Synthroid] 25 mcg PO MOWEFR@69902/08/22 01/11/24 Cetirizine HCl [Zyrtec] 10 mg PO HS@192912/02/23 01/11/24 Metoprolol Succinate (ER) [Toprol 50 mg PO DAILY@69912/02/23 01/11/24 Xl] Potassium Chloride [Klor-Con M20] 20 meq PO DAILY@69912/02/23 01/11/24 Ascorbic Acid [Vitamin C] 1,000 mg PO DAILY@69901/11/24 01/11/24 Bacillus Coagulans [Digestive 1 tab PO HS@192901/11/24 01/11/24 Advantage Probiotic Chew] Calcium Carb/Mag Ox/Zinc Sulf 1 tab PO HS@192901/11/24 01/11/24 [Znv-Bzg-Wmmj 334-134-5 mg Tab] Cholecalciferol (Vitamin D3) 50 mcg PO DAILY@69901/11/24 01/11/24 [Vitamin D3 (50 Mcg = 2000 Iu)] Fish Oil-[place]-3 1000/300mg 1 cap PO DAILY@69901/11/24 01/11/24 Multivit-Min/Iron/Folic/Lutein 1 tab PO DAILY@69901/11/24 01/11/24 [Centrum Silver Women Tablet] Allergies Allergy/AdvReac Type Severity Reaction Status Date / Time clindamycin Allergy Intermediate Rash/Hives Verified 01/11/24 17:56 codeine Allergy Swelling Verified 01/11/24 17:56 Penicillins Allergy Anaphylaxis, Verified 01/11/24 17:56 swelling pseudoephedrine Allergy Rash/Hives Verified 01/11/24 17:56 [From Actifed] Sulfa (Sulfonamide Allergy Swelling Verified 01/11/24 17:56 Antibiotics) triprolidine [From Actifed] Allergy Rash/Hives Verified 01/11/24 17:56 Review of Systems ROS Statement: Those systems with pertinent positive or pertinent negative responses have been documented in the HPI. ROS Other: All systems not noted in ROS Statement are negative. Past Medical History Past Medical History: Asthma, COPD, GERD/Reflux, Hyperlipidemia, Hypertension, Osteoarthritis (OA), Pneumonia, Thyroid Disorder Additional Past Medical History / Comment(s): Chronic cough form COPD. SOB at times. Emphysema. Hx migraines, resolved since menopause, pneumonia in August- much better but not completely resolved, chronic steroids for last 2-3 yrs., thin skin, bruises easily History of Any Multi-Drug Resistant Organisms: None Reported Past Surgical History: Appendectomy, Back Surgery, Cholecystectomy, Heart Catheterization, Tonsillectomy Additional Past Surgical History / Comment(s): Right wrist ganglion cyst r emoved, colonoscopy, bronchoscopy Past Anesthesia/Blood Transfusion Reactions: No Reported Reaction Past Psychological History: No Psychological Hx Reported Smoking Status: Former smoker - Past Family History Mother Family Medical History: No Reported History Additional Family Medical History / Comment(s): from Alzheimers. Father Family Medical History: Congestive Heart Failure (CHF) Additional Family Medical History / Comment(s): Valve replacement. General Exam Limitations: no limitations General appearance: alert, in no apparent distress Head exam: Present: atraumatic, normocephalic, normal inspection Eye exam: Present: normal appearance, PERRL, EOMI. Absent: scleral icterus, conjunctival injection, periorbital swelling ENT exam: Present: normal exam, mucous membranes moist Neck exam: Present: normal inspection. Absent: tenderness, meningismus, lymphadenopathy Respiratory exam: Present: wheezes, rhonchi, decreased breath sounds, prolonged expiratory. Absent: normal lung sounds bilaterally Cardiovascular Exam: Present: regular rate, normal rhythm, normal heart sounds. Absent: systolic murmur, diastolic murmur, rubs, gallop, clicks GI/Abdominal exam: Present: soft, normal bowel sounds. Absent: distended, tenderness, guarding, rebound, rigid Extremities exam: Present: normal inspection, full ROM, normal capillary refill. Absent: tenderness, pedal edema, joint swelling, calf tenderness Back exam: Present: normal inspection Neurological exam: Present: alert, oriented X3, CN II-XII intact Psychiatric exam: Present: normal affect, normal mood Skin exam: Present: warm, dry, intact, normal color. Absent: rash Course Vital Signs 01/11/24 16:36 Temperature 98.4 F Pulse Rate 75 Respiratory 20 Rate Blood Pressure 179/88 O2 Sat by Pulse 96 Oximetry Medical Decision Making - Medical Decision Making Was pt. sent in by a medical professional or institution (, PA, ELEMENTARY READING SPECIALIST, urgent care, hospital, or [place] health [place] facility...) When possible be specific @ -Patient was sent in by Dr. Longoria, Platen Drier Operator, for ongoing symptoms of pneumonia and recommend admission for IV antibiotics Did you speak to anyone other than the patient for history (EMS, parent, family, police, friend...)? What history was obtained from this source @ -[Patient's family was at bedside which stated that the patient's most recent course of antibiotics was completed on December 29 that was Levaquin Did you review nursing and triage notes (agree or disagree)? Why? @ -I reviewed and agree with nursing and triage notes Were old charts reviewed (outside hosp., previous admission, EMS record, old EKG, old radiological studies, urgent care reports/EKG's, [place] health care facility records)? Report findings @ -No old charts were reviewed Differential Diagnosis (chest pain, altered mental status, abdominal pain women, abdominal pain men, vaginal bleeding, weakness, fever, dyspnea, syncope, headache, dizziness, GI bleed, back pain, seizure, CVA, palpatations, mental health, musculoskeletal)? @ -Differential Dyspnea: Coronary syndrome, arrhythmia, tamponade, asthma, COPD, pulmonary embolism, pneumonia, pneumothorax, pulmonary effusion, anaphylaxis, diabetic ketoacidosis, flailed chest, pulmonary contusion, diaphragmatic rupture, anemia, neuromuscular, this is not meant to be an all-inclusive list. EKG interpreted by me (3pts min.). @ -As above X-rays interpreted by me (1pt min.). @ -Chest x-ray reveals a small posterior pleural effusion and streaky opacity in the right midlung, correlate for atelectasis. CT interpreted by me (1pt min.). @ -None done U/S interpreted by me (1pt. min.). @ -None done What testing was considered but not performed or refused? (CT, X-rays, U/S, labs)? Why? @ -None What meds were considered but not given or refused? Why? @ -None Did you discuss the management of the patient with other professionals (professionals i.e. , PA, ELEMENTARY READING SPECIALIST, lab, RT, psych nurse, social contact worker, motor vehicle assembler, teacher, administrative hearing officer, cyanide case hardener)? Give summary @ -I spoke with internal medicine team, [facility], with ELEMENTARY READING SPECIALIST Laila, in regard to admission for refractory pneumonia. Discussed that blood cultures have been ordered and patient will be started on antibiotics including Rocephin and azithromycin. Additionally pulmonology and infectious disease will be on consult. Was smoking cessation discussed for >3mins.? @ -No Was critical care preformed (if so, how long)? @ -No Were there social determinants of health that impacted care today? How? (Homelessness, low income, unemployed, alcoholism, drug addiction, transportation, low edu. Level, literacy, decrease access to med. care, [facility], rehab)? @ -No Was there de-escalation of care discussed even if they declined (Discuss DNR or withdrawal of care, Hospice)? DNR status @ -No What co-morbidities impacted this encounter? (DM, HTN, Smoking, COPD, CAD, Cancer, CVA, ARF, Chemo, Hep., AIDS, mental health diagnosis, sleep apnea, morb id obesity)? @ -COPD, hypertension Was patient admitted / discharged? Hospital course, mention meds given and route, prescriptions, significant lab abnormalities, going to OR and other pertinent info. @ -Admitted. 73-year-old female with history of pneumonia. On examination patient is noted to have rales, wheezes, decreased breath sounds bilaterally. Due to patients referral from Dr. Longoria's office labs will be ordered in addition to blood cultures and chest x-ray. Patient will be started on IV antibiotics. Patient will be admitted to internal medicine for pneumonia with infectious disease and pulmonology on consult. lab interpretation reveals leukocytosis of 15.1, elevated neutrophils of 11. Coagulation profile within normal limits. CMP unremarkable, lactic acid 0.9, troponin less than 1.012. Case discussed with Dr. Gonzalez. Undiagnosed new problem with uncertain prognosis? @ -No Drug Therapy requiring intensive monitoring for toxicity (Heparin, Nitro, Insu glynn, Cardizem)? @ -No Were any procedures done? @ -No Diagnosis/symptom? @ -Pneumonia Acute, or Chronic, or Acute on Chronic? @ -Acute Uncomplicated (without systemic symptoms) or Complicated (systemic symptoms)? @ -Complicated Side effects of treatment? @ -No Exacerbation, Progression, or Severe Exacerbation? @ -No Poses a threat to life or bodily function? How? (Chest pain, USA, MA, pneumonia, PE, COPD, DKA, ARF, appy, cholecystitis, CVA, Diverticulitis, Homicidal, Suicidal, threat to staff... and all critical care pts) @ -potentially, untreated pneumonia can lead to multiorgan dysfunction and possible sepsis. - Lab Data Result diagrams: 01/11/24 17:03 01/11/24 18:35 Lab Results 01/11/24 01/11/24 01/11/24 Range/Units 17:03 17:03 17:03 WBC 15.1 H (3.8-10.6) k/uL RBC 4.40 (3.80-5.40) m/uL Hgb 13.4 (11.4-16.0) gm/dL Hct 41.3 (34.0-46.0) % MCV 93.7 (80.0-100.0) fL MCH 30.4 (25.0-35.0) pg MCHC 32.4 (31.0-37.0) g/dL RDW 13.6 (11.5-15.5) % Plt Count 296 (150-450) k/uL MPV 8.2 Neutrophils % 73 % Lymphocytes % 21 % Monocytes % 4 % Eosinophils % 1 % Basophils % 1 % Neutrophils # 11.0 H (1.3-7.7) k/uL Lymphocytes # 3.2 (1.0-4.8) k/uL Monocytes # 0.5 (0-1.0) k/uL Eosinophils # 0.2 (0-0.7) k/uL Basophils # 0.1 (0-0.2) k/uL PT 10.4 (10.0-12.5) sec INR 0.9 (<1.2) APTT 24.9 (22.0-30.0) sec Plasma Lactic Acid Yvan 0.9 (0.7-2.0) mmol/L Troponin I (0.000-0.034) ng/mL 01/11/24 Range/Units 17:03 WBC (3.8-10.6) k/uL RBC (3.80-5.40) m/uL Hgb (11.4-16.0) gm/dL Hct (34.0-46.0) % MCV (80.0-100.0) fL MCH (25.0-35.0) pg MCHC (31.0-37.0) g/dL RDW (11.5-15.5) % Plt Count (150-450) k/uL MPV Neutrophils % % Lymphocytes % % Monocytes % % Eosinophils % % Basophils % % Neutrophils # (1.3-7.7) k/uL Lymphocytes # (1.0-4.8) k/uL Monocytes # (0-1.0) k/uL Eosinophils # (0-0.7) k/uL Basophils # (0-0.2) k/uL PT (10.0-12.5) sec INR (<1.2) APTT (22.0-30.0) sec Plasma Lactic Acid Yvan (0.7-2.0) mmol/L Troponin I <0.012 (0.000-0.034) ng/mL Disposition Clinical Impression: Pneumonia Disposition: ADMITTED IP TO THIS [facility] Condition: Good Decision to Admit Reason: Admit from EC Decision Date: 01/11/24 Decision Time: 17:23
[2024-01-11 17:14] LABS: Basophils # (A) 0.1 k/uL (0-0.2); Basophils % (A) 1 %; Eosinophils # (A) 0.2 k/uL (0-0.7); Eosinophils % (A) 1 %; HCT 41.3 % (34.0-46.0); HGB 13.4 gm/dL (11.4-16.0); Lymphocytes # (A) 3.2 k/uL (1.0-4.8); Lymphocytes % (A) 21 %; MCH 30.4 pg (25.0-35.0); MCHC 32.4 g/dL (31.0-37.0); MCV 93.7 fL (80.0-100.0); Mean Platelet Volume 8.2; Monocytes # (A) 0.5 k/uL (0-1.0); Monocytes % (A) 4 %; Neutrophils % (A) 73 %; Platelet Count 296 k/uL (150-450); RDW 13.6 % (11.5-15.5); WBC 15.1 k/uL (3.8-10.6)
[2024-01-11] MEDS ORDERED: ACETAMINOPHEN TAB 325 MG TAB PO PRN (17:23)
[2024-01-11] MEDS ORDERED: NALOXONE 0.4 MG/ML 1 ML VIAL IV PRN (17:23)
[2024-01-11 17:40] LABS: INR 0.9 (<1.2); Partial Thromboplastin Time 24.9 sec (22.0-30.0); Prothrombin Time 10.4 sec (10.0-12.5)
[2024-01-11] MEDS ORDERED: NAPROXEN 250 MG TAB PO PRN (18:35)
--- NOTE | 2024-01-11 18:42 | XR ---
EXAMINATION TYPE: XR chest 2V DATE OF EXAM: 01/11/2024 COMPARISON: 08/06/2020 INDICATION: Short of breath TECHNIQUE: Frontal and lateral views of the chest are obtained. FINDINGS: The heart size is normal. The pulmonary vasculature is normal. Some mild streak atelectasis in the right midlung.. Small posterior pleural effusion is present on t he lateral projection. IMPRESSION: 1. Small posterior pleural effusion. 2. Streaky opacity right mid lung. Correlate for atelectasis.
[2024-01-11 19:18] LABS: ALT 21 U/L (4-34); AST 22 U/L (14-36); African American GFR (CKD) >90 (>60 ml/min/1.73 sqM); Albumin 4.3 g/dL (3.5-5.0); Albumin/Globulin Ratio 1.7; Alkaline Phosphatase 101 U/L (38-126); Anion Gap 1 mmol/L; Blood Urea Nitrogen 18 mg/dL (7-17); Calcium 9.4 mg/dL (8.4-10.2); Carbon Dioxide 32 mmol/L (22-30); Chloride 104 mmol/L (98-107); Globulin 2.5 g/dL; Glucose 91 mg/dL (74-99); Magnesium 2.2 mg/dL (1.6-2.3); Non-African American GFR(CKD) 88 (>60 ml/min/1.73 sqM); Sodium 137 mmol/L (137-145); Total Bilirubin 0.6 mg/dL (0.2-1.3); Total Protein 6.8 g/dL (6.3-8.2)
[2024-01-11 19:26] LABS: NT-Pro-B-Type Natriuretic Pept 124 pg/mL
[2024-01-11] MEDS: AZITHROMYCIN 500 MG in SODIUM CHLORIDE 0.9% 250 ML IVPB STA (20:17)
[2024-01-11] MEDS: ATORVASTATIN 20 MG TAB PO SCH (20:18)
[2024-01-11] MEDS: MONTELUKAST 10 MG TAB PO SCH (20:18)
[2024-01-11] MEDS: LACTOBACILLUS ACIDOPHILUS/PECT 1 EACH CAPSULE PO SCH (20:18)
[2024-01-11] MEDS: CALCIUM CARBONATE 500 MG CHEWABLE PO SCH (20:18)
[2024-01-11] MEDS: LORATADINE 10 MG TAB PO SCH (20:18)
[2024-01-11] MEDS: SYMBICORT 160-4.5 MCG INHALER INHALATION SCH (20:51)
[2024-01-11] MEDS: IPRATROPIUM-ALBUTEROL 3 ML NEB INHALATION SCH (20:52)
--- NOTE | 2024-01-12 02:46 | P.CNPUL ---
History of Present Illness Consult date: 01/12/24 Requesting physician: Dora Sanchez Reason for consult: pneumonia Chief complaint: Shortness of breath, cough History of present illness: Patient is a 73-year-old white female with past medical history significant for COPD, hypertension, hyperlipidemia, hypothyroidism, and former tobacco smoker. Patient does follow in the pulmonary office with Dr. Longoria for management of her moderate COPD. She has an FEV1 66% of predicted. Reportedly, She quit smoking over 25 years ago. Normally on Advair maintenance inhaler, DuoNebs 4 times daily, and has a ProAir rescue inhaler. She does have home O2, and utilizes 2 L nasal cannula as needed. She is also steroid-dependent since the beginning of the year, on 5 mg of oral prednisone daily. Since July, the patient has been treated multiple times outpatient for COPD exacerbation. She initially responds to steroid and antibiotics, but then worsens when they are discontinued. Most recently treated with a course of Levaquin. She did have a bronchoscopy with BAL of the right middle lobe performed by Dr. Longoria on 12/06/2023. Lavage cultures demonstrated haemophilus influenzae, and she was treated outpatient with doxycycline at this time. She is completed all courses of her antibiotics. PCR also positive for CMV. She brought herself into the emergency department yesterday afternoon. She endorses worsening shortness of breath, especially with any kind of exertion. She does have a productive cough with reportedly white sputum. Denies any hemoptysis. Denies any fevers. No noted sick contacts. Denies any chest pain. She is currently resting in bed, on room air, in no acute distress. She has intermittent congested cough. She has audible wheezing. Chest x-ray shows some chronic mild streaky atelectasis in the right midlung, and small posterior pleural effusion. No obvious focal infiltrate or pneumonia. CBC on arrival shows some leukocytosis with a WBC count of 15, otherwise unremarkable. BMP also unremarkable. Troponin less than 0.012. NT proBNP 124. She has received doses of empiric antibiotics in the e mergency room. Appears nontoxic. Afebrile. Hemodynamics are stable at this time. Review of Systems REVIEW OF SYSTEMS: CONSTITUTIONAL: Denies any recent significant weight loss or weight gain. EYES: Denies change in vision. EARS, NOSE, MOUTH, THROAT: Denies headaches, denies sore throat. CARDIOVASCULAR: Denies chest pain, palpitations or syncopal episodes. RESPIRATORY: See HPI. GASTROINTESTINAL: Denies change in appetite, abdominal pain, nausea and vomiting, or diarrhea GENITOURINARY: Denies hematuria, denies infections. MUSKULOSKELETAL: Denies pain, denies swelling. INTEGUMENTARY: Denies rash, denies eczema. NEUROLOGICAL: Denies recent memory loss, no recent seizure activity. PSYCHIATRIC: Denies anxiety, denies depression. HEMATOLOGIC/LYMPHATIC: Denies anemia, denies enlarged lymph node Past Medical History Past Medical History: Asthma, COPD, GERD/Reflux, Hyperlipidemia, Hypertension, Osteoarthritis (OA), Pneumonia, Thyroid Disorder Additional Past Medical History / Comment(s): Chronic cough form COPD. SOB at times. Emphysema. Hx migraines, resolved since menopause, pneumonia in August- much better but not completely resolved, chronic steroids for last 2-3 yrs., thin skin, bruises easily History of Any Multi-Drug Resistant Organisms: None Reported Past Surgical History: Appendectomy, Back Surgery, Cholecystectomy, Heart Catheterization, Tonsillectomy Additional Past Surgical History / Comment(s): Right wrist ganglion cyst removed, colonoscopy, bronchoscopy, some vascular surgery/vein/leaking valve Past Anesthesia/Blood Transfusion Reactions: No Reported Reaction Past Psychological History: No Psychological Hx Reported Smoking Status: Former smoker Past Alcohol Use History: None Reported Additional Past Alcohol Use History / Comment(s): Quit smoking in 2008, smoked for 30 yrs, 2 PPD. Past Drug Use History: None Reported - Past Family History Mother Family Medical History: No Reported History Additional Family Medical History / Comment(s): from Alzheimers. Father Family Medical History: Congestive Heart Failure (CHF) Additional Family Medical History / Comment(s): Valve replacement. Medications and Allergies Home Medications Medication Instructions Recorded Confirmed Type Levothyroxine Sodium [Synthroid] 50 mcg PO SUTUTHSA@69904/10/14 01/11/24 History Montelukast [Singulair] 10 mg PO HS@192904/10/14 01/11/24 History Calcium Carbonate [Calcium] 1,200 mg PO DAILY@00 02/23/16 01/11/24 History Fluticasone Propion/Salmeterol 2 puff INHALATION RT-BID@699,192902/23/16 01/11/24 History [Advair Hfa 230-21 Mcg Inhaler] Naproxen Sodium [Aleve] 220 mg PO BID PRN 04/10/18 01/11/24 History Rosuvastatin Calcium [Crestor] 10 mg PO HS@192904/10/18 01/11/24 History Ubidecarenone [Co Q-10] 200 mg PO DAILY@69904/10/18 01/11/24 History predniSONE 5 mg PO DAILY@69905/21/20 01/11/24 History Furosemide [Lasix] 40 mg PO BID@0700,1600 07/07/20 01/11/24 History Ipratropium-Albuterol Nebulize 3 ml INHALATION RT-QID@,,,07/07/20 01/11/24 History [Duoneb 0.5 mg-3 mg/3 ml Soln] Omeprazole 20 mg PO DAILY@69907/07/20 01/11/24 History Losartan Potassium [Cozaar] 100 mg PO DAILY@69908/04/20 01/11/24 History Albuterol Sulfate [Proair Hfa] 2 puff INHALATION RT-Q6H PRN 02/08/22 01/11/24 History Levothyroxine Sodium [Synthroid] 25 mcg PO MOWEFR@69902/08/22 01/11/24 History Cetirizine HCl [Zyrtec] 10 mg PO HS@192912/02/23 01/11/24 History Metoprolol Succinate (ER) [Toprol 50 mg PO DAILY@69912/02/23 01/11/24 History Xl] Potassium Chloride [Klor-Con M20] 20 meq PO DAILY@69912/02/23 01/11/24 History Ascorbic Acid [Vitamin C] 1,000 mg PO DAILY@69901/11/24 01/11/24 History Bacillus Coagulans [Digestive 1 tab PO HS@192901/11/24 01/11/24 History Advantage Probiotic Chew] Calcium Carb/Mag Ox/Zinc Sulf 1 tab PO HS@192901/11/24 01/11/24 History [Ype-Djn-Uprq 334-134-5 mg Tab] Cholecalciferol (Vitamin D3) 50 mcg PO DAILY@69901/11/24 01/11/24 History [Vitamin D3 (50 Mcg = 2000 Iu)] Fish Oil-[place]-3 1000/300mg 1 cap PO DAILY@0700 01/11/24 01/11/24 History Multivit-Min/Iron/Folic/Lutein 1 tab PO DAILY@0700 01/11/24 01/11/24 History [Centrum Silver Women Tablet] Allergies Allergy/AdvReac Type Severity Reaction Status Date / Time clindamycin Allergy Intermediate Rash/Hives Verified 01/11/24 17:56 codeine Allergy Swelling Verified 01/11/24 17:56 Penicillins Allergy Anaphylaxis, Verified 01/11/24 17:56 swelling pseudoephedrine Allergy Rash/Hives Verified 01/11/24 17:56 [From Actifed] Sulfa (Sulfonamide Allergy Swelling Verified 01/11/24 17:56 Antibiotics) triprolidine [From Actifed] Allergy Rash/Hives Verified 01/11/24 17:56 Physical Exam Vitals: Vital Signs Temp Pulse Pulse Resp BP BP Pulse Ox 01/11/24 22:22 98.2 F 71 17 113/77 96 01/11/24 21:57 72 18 118/61 97 01/11/24 20:53 72 01/11/24 20:34 71 18 144/91 96 01/11/24 16:36 98.4 F 75 20 179/88 96 Intake and Output 01/11/24 01/11/24 01/12/24 14:59 22:59 06:59 Other: Weight 119.295 kg GENERAL EXAM: Alert, , comfortable in no apparent distress. HEAD: Normocephalic and atraumatic EYES: Normal reaction of pupils, equal size. NOSE: Clear with pink turbinates. THROAT: No erythema or exudates. NECK: No masses, no JVD. CHEST: No chest wall deformity. LUNGS: Equal air entry with diffuse expiratory wheezes heard throughout. On room air. No conversational dyspnea or accessory muscle use. Intermittent congested cough noted. CVS: S1 and S2 normal with no audible murmur, regular rhythm. No extra heart sounds ABDOMEN: No hepatosplenomegaly, active bowel sounds, no guarding or rigidity. SPINE: No scoliosis or deformity SKIN: No rashes CENTRAL NERVOUS SYSTEM: No focal deficits, tone is normal in all 4 extremities. EXTREMITIES: There is no peripheral edema, clubbing, or cyanosis. Peripheral pulses are intact. Results - Laboratory Findings CBC and BMP: 01/11/24 17:03 01/11/24 18:35 PT/INR, D-dimer PT 10.4 sec (10.0-12.5) 01/11/24 17:03 INR 0.9 (<1.2) 01/11/24 17:03 Abnormal lab findings: Abnormal Labs 01/11/24 01/11/24 17:03 18:35 WBC 15.1 H Neutrophils # 11.0 H Carbon Dioxide 32 H BUN 18 H - Diagnostic Findings Chest x-ray: image reviewed Assessment and Plan Assessment: Acute COPD exacerbation, failed outpatient treatment, chest x-ray on arrival demonstrates chronic right midlung atelectasis/scarring, no obvious focal infiltrates or pneumonia. There is a possible small posterior pleural effusion noted on lateral view. No significant cardiomegaly or pulmonary vascular congestion. NT proBNP low. Recent history of bronchoscopy with airway examination and BAL of the right middle lobe on 12/06/2023, BAL cultures positive for haemophilus influenzae, treated outpatient with doxycycline. Elisha intermediate and Aspergillus also isolated. PCR also positive for CMV. Acute leukocytosis Acute on chronic dyspnea, secondary to above Moderate chronic obstructive pulmonary disease, with an FEV1 66% of predicted maintained on a combination of Advair maintenance inhaler, DuoNebs 4 times daily, with an albuterol rescue inhaler. Also, prednisone dependent on 5 mg p.o. tabs daily. Chronic hypoxemic respiratory failure, secondary to above, normally maintained on 2 L/min nasal cannula as needed at home History of right hilar mass, follow-up chest CT from April, demonstrated persistent right perihilar density, slightly less conspicuous than prior study, likely reflecting parenchymal scarring. History of hypertension History of hyperlipidemia History of hypothyroidism Former tobacco dependence, quit smoking over 25 years ago Plan: Patient's medications, labs, imaging reviewed Currently tolerating room air Continue combination of Symbicort inhaler, DuoNebs [id number], and IV Solu-Medrol Started on empiric antibiotics in the emergency room, which can be continued. Check procalcitonin level. We will continue to follow I have personally seen and examined the patient, performed the documentation and the assessment and plan as written. Number of minutes spent on the visit:20 Time with Patient: Greater than 30
[2024-01-12] MEDS: ASCORBIC ACID 500 MG TAB PO SCH (05:42)
[2024-01-12] MEDS: methylPREDNISolone SOD SUCCI 125 MG/2 ML VIAL IV SCH (05:42)
[2024-01-12] MEDS: LOSARTAN 50 MG TAB PO SCH (05:43)
[2024-01-12] MEDS: POTASSIUM CHLORIDE ER 20 MEQ TAB.ER PO SCH (05:44)
[2024-01-12] MEDS: FUROSEMIDE 40 MG TAB PO SCH (05:44)
[2024-01-12] MEDS: CHOLECALCIFEROL 25 MCG (1000 IU) TABLET PO SCH (05:44)
[2024-01-12] MEDS: METOPROLOL SUCCINATE (ER) 50 MG TAB.ER.24H PO SCH (05:44)
[2024-01-12] MEDS: LEVOTHYROXINE 50 MCG TAB PO SCH (05:44)
[2024-01-12] MEDS: PANTOPRAZOLE 40 MG TABLET PO SCH ×2 (05:45→20:06)
[2024-01-12] MEDS: MULTIVITAMINS, THERA 1 EACH TAB PO SCH (05:45)
[2024-01-12] MEDS: CALCIUM CARBONATE 500 MG CHEWABLE PO SCH (05:45)
[2024-01-12] MEDS ORDERED: FISH OIL OMEGA PO SCH (07:00)
[2024-01-12] MEDS ORDERED: predniSONE 5 MG TAB PO SCH (07:00)
[2024-01-12] MEDS ORDERED: NON FORMULARY DRUG (Ubidecarenone [Co Q-10] 100 MG Capsule) PO SCH (07:00)
[2024-01-12 08:33] LABS: Basophils # (A) 0.06 X 10*3/uL (0.00-0.10); Basophils % (A) 0.4 %; Eosinophils # (A) 0.18 X 10*3/uL (0.04-0.35); Eosinophils % (A) 1.3 %; HCT 40.1 % (37.2-46.3); HGB 12.7 g/dL (12.0-15.0); Lymphocytes # (A) 3.25 X 10*3/uL (0.90-5.00); Lymphocytes % (A) 22.6 %; MCH 29.9 pg (27.0-32.0); MCHC 31.7 g/dL (32.0-37.0); MCV 94.4 FL (80.0-97.0); Mean Platelet Volume 10.1 FL (9.5-12.2); Monocytes % (A) 5.6 %; NRBC Per 100 WBC 0 X 10*3/uL (0.00-0.01); Neutrophils % (A) 69.7 %; Platelet Count 313 X 10*3/uL (140-440); RBC 4.25 X 10*6/uL (4.10-5.20); RDW 14.3 % (11.5-14.5); WBC 14.35 X 10*3/uL (4.50-10.00)
[2024-01-12 09:00] LABS: ALT 21 U/L (8-44); AST 18 U/L (13-35); Albumin 4.3 g/dL (3.8-4.9); Albumin/Globulin Ratio 1.79 Ratio (1.60-3.17); Alkaline Phosphatase 89 U/L (41-126); BUN/Creat Ratio 23.12 Ratio (12.00-20.00); Blood Urea Nitrogen 18.5 mg/dL (9.0-27.0); Calcium 9.6 mg/dL (8.7-10.3); Carbon Dioxide 26.3 mmol/L (21.6-31.8); Chloride 103 mmol/L (96-109); Globulin 2.4 g/dL (1.6-3.3); Glucose 89 mg/dL (70-110); Potassium 5.2 mmol/L (3.5-5.5); Sodium 141 mmol/L (135-145); Total Bilirubin 0.4 mg/dL (0.3-1.2); Total Protein 6.7 g/dL (6.2-8.2)
[2024-01-12] MEDS ORDERED: DEXTROSE 50% SYRINGE 50 ML IVP PRN ×2 (13:25)
[2024-01-12] MEDS ORDERED: TEMAZEPAM 15 MG CAP PO PRN (13:25)
--- NOTE | 2024-01-12 16:04 | CT ---
EXAMINATION TYPE: CT sinus wo con DATE OF EXAM: 01/12/2024 COMPARISON: None HISTORY: Recurrent infections CT DLP: 379 mGycm CONTRAST: 0 mL of Isovue 300 The paranasal sinuses are examined in the axial plane at 2 mm thick sections. Reconstructed images i n the coronal plane were obtained. There is dental amalgam scatter artifact The maxillary sinuses are clear. The ethmoid air cells are clear. The sphenoid sinuses are clear. Small amount of fluid or mucosal thickening may be within the right sphenoid sinus. The septum is evaluated. There is septal deviation to the right. The ostiomeatal units are patent. IMPRESSION: 1. Mild mucosal thickening right sphenoid sinus. 2. Right septal deviation
[2024-01-12] MEDS: HEPARIN SODIUM,PORCINE 5,000 UNIT/ML 1 ML VIAL SQ SCH (16:07)
[2024-01-12] MEDS: BUDESONIDE 1 MG/2 ML NEBU INHALATION SCH (16:07)
[2024-01-12] MEDS: FORMOTEROL FUMARATE 20 MCG/2 ML NEBU INHALATION SCH (16:07)
--- NOTE | 2024-01-12 16:09 | CT ---
EXAMINATION TYPE: CT chest wo con DATE OF EXAM: 01/12/2024 COMPARISON: None HISTORY: Recurrent infections, bronchiectasis. high resolution CT DLP: 2269.6 mGycm, Automated exposure control for dose reduction was used. CONTRAST: None TECHNIQUE: Axial images were obtained at 1 mm thick sections at 10 mm intervals. This will limit po rtions of the examination which may not be visualized within the [id number]. Images were obtained in the prone and supine views. FINDINGS: Portion of the thyroid visualized is normal. There is some streak opacities within the rig ht mid and lower lung field. Finding is nonspecific and could be related to atelectasis. No enlarged mediastinal or hilar adenopathy is evident. The ascending aorta diameter at the level o f the main pulmonary artery is 3.6 cm. The main pulmonary artery diameter at the bifurcation is 2.7 cm. No significant interval change between prone and supine imaging is evident. No bronchiectasis is evid ent. No peribronchial thickening is evident. No focal consolidations or lung masses are otherwise elizabeth arent. Limited CT sections are obtained through the upper abdomen. Abdomen is essentially unremarkable. IMPRESSION: 1. Chronic appearing streaky opacity right mid and lower lung field may be some scarring or atelectas is. Findings present in 2020.
[2024-01-12] MEDS: IBUPROFEN 400 MG TAB PO PRN (16:10)
[2024-01-12 17:19] LABS: Glucose,Whole Blood 138 mg/dL (70-110)
[2024-01-12] MEDS: INSULIN ASPART (NovoLOG) 100 UNIT/ML VIAL SQ SCH (17:27)
[2024-01-12 21:57] LABS: Immunoglobulin E 6.6 IU/mL (0.00-114.00)
[2024-01-12] MEDS: AZITHROMYCIN 500 MG in SODIUM CHLORIDE 0.9% 250 ML IVPB SCH (22:16)
[2024-01-12 22:20] LABS: Glucose,Whole Blood 151 mg/dL (70-110)
--- NOTE | 2024-01-12 22:45 | P.CONS ---
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 however the patient did have worsening shortness of breath starting having a cough which is moderate to severe intensity his bring up some yellowish sputum patient denies having any hemoptysis no significant pleuritic chest pain denies high- grade fever or URI symptoms no nausea no vomiting no abdominal pain no diarrhea with the symptoms the patient was evaluated on presentation to the hospital the patient was afebrile no fever has been recorded subsequently patient was not tachycardic hypotensive or hypoxic patient did have a white count of 15.1 with a left shift creatinine has been normal her liver isms are normal electrolytes are normal influenza RSV COVID testing has been negative patient did have low IgG however IgA IgM and IgA are normal patient did have a chest x-ray streaky opacity right midlung correlate for atelectasis patient has been started on Rocephin and Zithromax infectious disease was consulted for further management of antibiotic therapy Review of Systems Positive point and negatives has been mentioned in the HPI, complete review of systems was performed and all other systems are negative Past Medical History Past Medical History: Asthma, COPD, GERD/Reflux, Hyperlipidemia, Hypertension, Osteoarthritis (OA), Pneumonia, Thyroid Disorder Additional Past Medical History / Comment(s): Chronic cough form COPD. SOB at times. Emphysema. Hx migraines, resolved since menopause, pneumonia in August- much better but not completely resolved, chronic steroids for last 2-3 yrs., thin skin, bruises easily History of Any Multi-Drug Resistant Organisms: None Reported Past Surgical History: Appendectomy, Back Surgery, Cholecystectomy, Heart Catheterization, Tonsillectomy Additional Past Surgical History / Comment(s): Right wrist ganglion cyst removed, colonoscopy, bronchoscopy, some vascular surgery/vein/leaking valve Past Anesthesia/Blood Transfusion Reactions: No Reported Reaction Past Psychological History: No Psychological Hx Reported Smoking Status: Former smoker Past Alcohol Use History: None Reported Additional Past Alcohol Use History / Comment(s): Quit smoking in 2008, smoked for 30 yrs, 2 PPD. Past Drug Use History: None Reported - Past Family History Mother Family Medical History: No Reported History Additional Family Medical History / Comment(s): from Alzheimers. Father Family Medical History: Congestive Heart Failure (CHF) Additional Family Medical History / Comment(s): Valve replacement. Medications and Allergies Home Medications Medication Instructions Recorded Confirmed Type Levothyroxine Sodium [Synthroid] 50 mcg PO SUTUTHSA@69904/10/14 01/11/24 History Montelukast [Singulair] 10 mg PO HS@192904/10/14 01/11/24 History Calcium Carbonate [Calcium] 1,200 mg PO DAILY@69902/23/16 01/11/24 History Fluticasone Propion/Salmeterol 2 puff INHALATION RT-BID@07,192902/23/16 01/11/24 History [Advair Hfa 230-21 Mcg Inhaler] Naproxen Sodium [Aleve] 220 mg PO BID PRN 04/10/18 01/11/24 History Rosuvastatin Calcium [Crestor] 10 mg PO HS@192904/10/18 01/11/24 History Ubidecarenone [Co Q-10] 200 mg PO DAILY@69904/10/18 01/11/24 History Furosemide [Lasix] 40 mg PO BID@0700,1600 07/07/20 01/11/24 History Ipratropium-Albuterol Nebulize 3 ml INHALATION RT-QID@08,12,,07/07/20 01/11/24 History [Duoneb 0.5 mg-3 mg/3 ml Soln] Omeprazole 20 mg PO DAILY@0700 07/07/20 01/11/24 History Losartan Potassium [Cozaar] 100 mg PO DAILY@0700 08/04/20 01/11/24 History Albuterol Sulfate [Proair Hfa] 2 puff INHALATION RT-Q6H PRN 02/08/22 01/11/24 History Levothyroxine Sodium [Synthroid] 25 mcg PO MOWEFR@69902/08/22 01/11/24 History Cetirizine HCl [Zyrtec] 10 mg PO HS@192912/02/2324 History Metoprolol Succinate (ER) [Toprol 50 mg PO DAILY@69912/02/23 01/11/24 History XL] Potassium Chloride [Klor-Con M20] 20 meq PO DAILY@69912/02/23 01/11/24 History Ascorbic Acid [Vitamin C] 1,000 mg PO DAILY@0701/11/24 01/11/24 History Bacillus Coagulans [Digestive 1 tab PO HS@192901/11/24 01/11/24 History Advantage Probiotic Chew] Calcium Carb/Mag Ox/Zinc Sulf 1 tab PO HS@192901/11/24 01/11/24 History [Nyf-Etq-Dopm 334-134-5 mg Tab] Cholecalciferol (Vitamin D3) 50 mcg PO DAILY@69901/11/24 01/11/24 History [Vitamin D3 (50 Mcg = 2000 Iu)] Fish Oil-Olin-3 1000/300mg 1 cap PO DAILY@69901/11/24 01/11/24 History Multivit-Min/Iron/Folic/Lutein 1 tab PO DAILY@69901/11/24 01/11/24 History [Centrum Silver Women Tablet] amLODIPine [Norvasc] 10 mg PO DAILY #30 tab 01/16/24 Rx predniSONE 5 mg PO DAILY@0700 #0 01/16/24 01/11/24 Rx predniSONE 10 mg PO DIRECTED #30 tab 01/16/24 Rx Allergies Allergy/AdvReac Type Severity Reaction Status Date / Time clindamycin Allergy Intermediate Rash/Hives Verified 01/11/24 17:56 codeine Allergy Swelling Verified 01/11/24 17:56 Penicillins Allergy Anaphylaxis, Verified 01/11/24 17:56 swelling pseudoephedrine Allergy Rash/Hives Verified 01/11/24 17:56 [From Actifed] Sulfa (Sulfonamide Allergy Swelling Verified 01/11/24 17:56 Antibiotics) triprolidine [From Actifed] Allergy Rash/Hives Verified 01/11/24 17:56 Physical Exam Vitals: Vital Signs Temp Pulse Pulse Resp BP BP Pulse Ox 01/12/24 09:21 72 01/12/24 09:09 76 01/12/24 07:38 97.6 F 64 18 124/77 96 01/12/24 05:28 70 154/75 01/12/24 02:00 97.7 F 61 16 123/79 97 01/11/24 22:22 98.2 F 71 17 113/77 96 01/11/24 21:57 72 18 118/61 97 01/11/24 20:53 72 01/11/24 20:34 71 18 144/91 96 01/11/24 16:36 98.4 F 75 20 179/88 96 Intake and Output 01/11/24 01/12/24 01/12/24 22:59 06:59 14:59 Other: # Voids 2 Weight 119.295 kg GENERAL DESCRIPTION: Elderly female lying in bed, no distress. No tachypnea or accessory muscle of respiration use. HEENT: Shows Pallor , no scleral icterus. Oral mucous membrane is dry. No pharyngeal erythema or thrush NECK: Trachea central, no thyromegaly. LUNGS: Unlabored breathing. Coarse breath sounds with occasional wheeze HEART: S1, S2, regular rate and rhythm. No loud murmur ABDOMEN: Soft, no tenderness , guarding or rigidity, no organomegaly EXTREMITIES: No edema of feet. SKIN: No rash, no masses palpable. NEUROLOGICAL: The patient is awake, alert, oriented x3, mood and affect normal. Results CBC & Chem 7: 01/16/24 06:16 01/16/24 06:16 Labs: Abnormal Lab Results - Last 24 Hours (Table) 01/11/24 01/11/24 01/12/24 Range/Units 17:03 18:35 05:23 WBC 15.1 H 14.35 H (3.8-10.6) k/uL MCHC 31.7 L (32.0-37.0) g/dL Immature Gran # 0.06 H (0.00-0.04) X 10*3/uL Neutrophils # 11.0 H 10.00 H (1.3-7.7) k/uL Carbon Dioxide 32 H (22-30) mmol/L BUN 18 H (7-17) mg/dL BUN/Creatinine Ratio (12.00-20.00) Ratio 01/12/24 Range/Units 05:23 WBC (3.8-10.6) k/uL MCHC (32.0-37.0) g/dL Immature Gran # (0.00-0.04) X 10*3/uL Neutrophils # (1.3-7.7) k/uL Carbon Dioxide (22-30) mmol/L BUN (7-17) mg/dL BUN/Creatinine Ratio 23.12 H (12.00-20.00) Ratio Assessment and Plan (1) Allergy to multiple antibiotics Status: Acute Code(s): Z88.1 - ALLERGY STATUS TO OTHER ANTIBIOTIC AGENTS SNOMED Code(s): 631863441 (2) Leukocytosis Status: Acute Code(s): D72.829 - ELEVATED WHITE BLOOD CELL COUNT, UNSPECIFIED SNOMED Code(s): 539475653 (3) Pneumonia Status: Acute Code(s): J18.9 - PNEUMONIA, UNSPECIFIED ORGANISM SNOMED Code(s): 552678893 Plan: 1patient presented to hospital with increased shortness of breath productive cough did have elevated white count chest x-ray with an opacity concerning for pneumonia in this patient has been on multiple courses of antibiotics in the outpatient setting 2 try to obtain sputum for Gram stain culture-check a CRP and a procalcitonin 3-patient with multiple antibiotic ALLERGIES that would limit the number of antibiotic safe to use 4-continue Rocephin Zithromax: Waiting for the workup to be completed We will follow on clinical condition and cultures to further adjust medication if needed Thank you for this consultation we will follow the patient along with you Dictation was produced using [employer] dictation software. please excuse any grammatical, word or spelling errors. Time with Patient: Greater than 30
--- NOTE | 2024-01-12 22:46 | HP ---
HISTORY AND PHYSICAL CHIEF COMPLAINT: Shortness of breath and cough. HISTORY OF PRESENT ILLNESS: This is a 73-year-old woman with a past medical history of multiple medical problems and COPD, was not feeling well over the past several days. The patient had ongoing pneumonia since July 2023. The patient is also following with Dr. Longoria, the patient has been given multiple medications. Because of lack of improvement, the patient came to [facility] and admitted for further evaluation and treatment, Dr. Gutierrez's evaluation in progress. There is no history of any fever, rigors, or chills. PAST MEDICAL HISTORY: History of COPD, history of pneumonia, history of asthma, multiple medical issues, rest of the chart is also reviewed. HOME MEDICATIONS: Reviewed include Synthroid dose, rest of medications reviewed. ALLERGIES: Clindamycin, rest of allergies reviewed. FAMILY HISTORY: History of dementia. SOCIAL HISTORY: Previous history of smoking. REVIEW OF SYSTEMS: A 14-point review is negative except as mentioned earlier. PHYSICAL EXAMINATION: VITAL SIGNS: Pulse is 64, blood pressure 124/70, and respirations 18. HEENT: Conjunctivae normal. NECK: No jugular venous distention. CARDIOVASCULAR: S1, S2. RESPIRATIONS: Diminished at the bases, bilateral scattered rhonchi and expiratory wheezing and crackles. ABDOMEN: Soft, obese, nontender. LEGS: No edema, no swelling. NERVOUS SYSTEM: nonfocal. LYMPHATICS: No lymph nodes. SKIN: No ulcer, rash, bleeding. JOINTS: No active deforming arthropathy. LABS: COVID-19 is negative. Influenza is negative. WBC 14.35. ASSESSMENT: 1. COPD, asthma, acute exacerbation with possible right-sided pneumonia with failure of outpatient treatment. 2. Gastroesophageal reflux disease. 3. Hypertension. 4. Hyperlipidemia. 5. Chronic cough. 6. Multiple medical issues. RECOMMENDATIONS AND DISCUSSION: This 73-year-old woman presented with multiple complex medical issues, we will monitor the patient closely. We will initiate intensive bronchodilator treatment, empiric antibiotics, Dr. Gutierrez in consultation, resume home medications. DVT prophylaxis. Prognosis guarded because of multiple complex medical. Further recommendations to follow. See orders. We will check mycoplasma antigen also. Further recommendations to follow. MMODL / IJN: [id number] / MTDD
[2024-01-13 05:34] LABS: Glucose,Whole Blood 159 mg/dL (70-110)
[2024-01-13] MEDS: LEVOTHYROXINE 25 MCG TAB PO SCH (06:42)
[2024-01-13 09:01] LABS: Basophils # (A) 0.01 X 10*3/uL (0.00-0.10); Basophils % (A) 0.1 %; Eosinophils # (A) 0 X 10*3/uL (0.04-0.35); Eosinophils % (A) 0 %; HCT 39.7 % (37.2-46.3); HGB 12.6 g/dL (12.0-15.0); Lymphocytes % (A) 13.6 %; MCH 29.9 pg (27.0-32.0); MCHC 31.7 g/dL (32.0-37.0); MCV 94.1 FL (80.0-97.0); Mean Platelet Volume 10.5 FL (9.5-12.2); Monocytes # (A) 0.13 X 10*3/uL (0.20-1.00); Monocytes % (A) 1.3 %; NRBC Per 100 WBC 0 X 10*3/uL (0.00-0.01); Neutrophils # (A) 8.71 X 10*3/uL (1.80-7.70); Neutrophils % (A) 84.7 %; Platelet Count 312 X 10*3/uL (140-440); RBC 4.22 X 10*6/uL (4.10-5.20); WBC 10.28 X 10*3/uL (4.50-10.00)
[2024-01-13 09:28] LABS: BUN/Creat Ratio 26.43 Ratio (12.00-20.00); Blood Urea Nitrogen 18.5 mg/dL (9.0-27.0); Calcium 9.5 mg/dL (8.7-10.3); Carbon Dioxide 23.1 mmol/L (21.6-31.8); Chloride 102 mmol/L (96-109); Glucose 165 mg/dL (70-110); Potassium 4.1 mmol/L (3.5-5.5); Sodium 138 mmol/L (135-145)
--- NOTE | 2024-01-13 09:34 | CA ---
Transthoracic Echo Report Name: Sirisha Contreras Age: 73 Gender: F : 1950 Exam Date: 01/12/2024 14:19 Exam Location: [facility] Ht (in): 64 Wt (lb): 263 Ordering Physician: Prince Ward MD Attending/Referring Phys: [employer] Engineer Rebeka Herring RDCS Procedure CPT: Indications: chf Cardiac Hx: Technical Quality: Technically difficult study Contrast 1: Definity Total Dose (mL): 2 Contrast 2: Total Dose (mL): MEASUREMENTS (Male / Female) Normal Values 2D ECHO LV Diastolic Diameter PLAX 4.8 cm 4.2 - 5.9 / 3.9 - 5.3 cm LV Systolic Diameter PLAX 3.6 cm IVS Diastolic Thickness 1.6 cm 0.6 - 1.0 / 0.6 - 0.9 cm LVPW Diastolic Thickness 1.3 cm 0.6 - 1.0 / 0.6 - 0.9 cm LV Relative Wall Thickness 0.6 LA Volume 59.9 cm??? 18 - 58 / 22 - 52 cm??? LA Volume Index 25.1 cm???/m??? 16 - 28 cm???/m??? M-MODE Aortic Root Diameter MM 2.8 cm LA Systolic Diameter MM 5.0 cm LA Ao Ratio MM 1.8 AV Cusp Separation MM 2.1 cm DOPPLER AV Peak Velocity 136.7 cm/s AV Peak Gradient 7.5 mmHg AV Mean Velocity 83.7 cm/s AV Mean Gradient 3.4 mmHg AV Velocity Time Integral 29.0 cm LVOT Peak Velocity 108.1 cm/s LVOT Peak Gradient 4.7 mmHg LVOT Velocity Time Integral 27.1 cm MV Area PHT 4.5 cm??? Mitral E Point Velocity 55.7 cm/s Mitral A Point Velocity 112.6 cm/s Mitral E to A Ratio 0.5 MV Deceleration Time 167.8 ms MV E' Velocity 5.3 cm/s Mitral E to MV E' Ratio 10.5 FINDINGS Left Ventricle Moderately increased left ventricular wall thickness. Left ventricular cavity size normal. No obvious regional wall motion abnormalities. Left ventricular ejection fraction is estimated at 55-60 %. Right Ventricle Right ventricle not well visualized. Right Atrium Right atrium not well visualized. Left Atrium Mildly increased left atrial volume. Mitral Valve Mitral valve not well visualized. No mitral stenosis. No mitral regurgitation. Aortic Valve No aortic valve stenosis or regurgitation. Tricuspid Valve Tricuspid valve not well visualized. Pulmonic Valve Pulmonic valve not well visualized. Pericardium No pericardial effusion. Aorta Normal size aortic root and proximal ascending aorta. CONCLUSIONS This is a technically difficult study LV systolic function is well-preserved. Valve structures are not well seen. No pericardial effusion. Echo contrast was used Previewed by: Dr. Dia Madrigal MD (Electronically Signed) Final Date: 13 Jan 2024 09:33
[2024-01-13 11:41] LABS: Glucose,Whole Blood 134 mg/dL (70-110)
--- NOTE | 2024-01-13 16:00 | P.PN ---
Subjective Progress Note Date: 01/13/24 Principal diagnosis: Reason for follow-up is possible pneumonia Patient is a 73-year-old female past medical history significant for hypertension hyperlipidemia reflux COPD asthma pneumonia presenting to the hospital for evaluation of increasing shortness of breath and cough symptoms have been chronic with acute worsening and has been multiple course of antibiotic in the outpatient setting, chest x-ray with a streaky opacity right midlung. On today's evaluation that is 01/13/2024, the patient continues to be afebrile, the patient is on room air and breathing comfortably, the Pt denies having any chest pain however still complaining of cough moderate intensity with occasional sputum production no nausea vomiting no abdominal pain no diarrhea. Patient white count is as improved to 10.28 creatinine 0.7 urine for Legionella antigen negative blood and sputum culture currently pending Objective - Vital Signs Vital signs: Vital Signs Temp 99.0 F 01/13/24 07:24 Pulse 70 01/13/24 13:00 Resp 20 01/13/24 07:24 BP 156/93 01/13/24 07:24 Pulse Ox 95 01/13/24 07:24 FiO2 Intake & Output 01/12/24 01/13/24 01/13/24 18:59 06:59 18:59 Other: Voiding Method Toilet # Voids 4 3 - Exam GENERAL DESCRIPTION: An elderly female lying in bed in no distress RESPIRATORY SYSTEM: Unlabored breathing , coarse breath sounds at bases HEART: S1 S2 regular rate and rhythm , ABDOMEN: Soft , no tenderness EXTREMITIES: No edema feet - Labs CBC & Chem 7: 01/13/24 03:54 01/13/24 03:54 Labs: Abnormal Lab Results - Last 24 Hours (Table) 01/12/24 01/12/24 01/12/24 Range/Units 05:23 17:17 22:18 WBC (4.50-10.00) X 10*3/uL MCHC (32.0-37.0) g/dL Neutrophils # (1.80-7.70) X 10*3/uL Monocytes # (0.20-1.00) X 10*3/uL Eosinophils # (0.04-0.35) X 10*3/uL Anion Gap (4.00-12.00) mmol/L BUN/Creatinine Ratio (12.00-20.00) Ratio Glucose (70-110) mg/dL POC Glucose (mg/dL) 138 H 151 H (70-110) mg/dL Hemoglobin A1c (<=6.0) % IgG 694.0 L (700.0-1600.0) mg/dL 01/13/24 01/13/24 01/13/24 Range/Units 03:54 03:54 03:54 WBC 10.28 H (4.50-10.00) X 10*3/uL MCHC 31.7 L (32.0-37.0) g/dL Neutrophils # 8.71 H (1.80-7.70) X 10*3/uL Monocytes # 0.13 L (0.20-1.00) X 10*3/uL Eosinophils # 0 L (0.04-0.35) X 10*3/uL Anion Gap 12.90 H (4.00-12.00) mmol/L BUN/Creatinine Ratio 26.43 H (12.00-20.00) Ratio Glucose 165 H (70-110) mg/dL POC Glucose (mg/dL) (70-110) mg/dL Hemoglobin A1c 6.3 H (<=6.0) % IgG (700.0-1600.0) mg/dL 01/13/24 01/13/24 Range/Units 05:32 11:39 WBC (4.50-10.00) X 10*3/uL MCHC (32.0-37.0) g/dL Neutrophils # (1.80-7.70) X 10*3/uL Monocytes # (0.20-1.00) X 10*3/uL Eosinophils # (0.04-0.35) X 10*3/uL Anion Gap (4.00-12.00) mmol/L BUN/Creatinine Ratio (12.00-20.00) Ratio Glucose (70-110) mg/dL POC Glucose (mg/dL) 159 H 134 H (70-110) mg/dL Hemoglobin A1c (<=6.0) % IgG (700.0-1600.0) mg/dL Microbiology - Last 24 Hours (Table) 01/11/24 17:45 Blood Culture - Preliminary Blood 01/11/24 17:00 Blood Culture - Preliminary Blood 01/12/24 12:21 Gram Stain - Preliminary Sputum Assessment and Plan (1) Allergy to multiple antibiotics Current Visit: Yes Status: Acute Code(s): Z88.1 - ALLERGY STATUS TO OTHER ANTIBIOTIC AGENTS SNOMED Code(s): 485194851 (2) Leukocytosis Current Visit: Yes Status: Acute Code(s): D72.829 - ELEVATED WHITE BLOOD CELL COUNT, UNSPECIFIED SNOMED Code(s): 141639708 (3) Pneumonia Current Visit: Yes Status: Acute Code(s): J18.9 - PNEUMONIA, UNSPECIFIED ORGANISM SNOMED Code(s): 963891389 Plan: 1patient presented to hospital with increased shortness of breath productive cough did have elevated white count chest x-ray with an opacity concerning for pneumonia in this patient has been on multiple courses of antibiotics in the outpatient setting 2 blood and sputum culture has been obtained which are currently pending 3-patient with multiple antibiotic ALLERGIES that would limit the number of antibiotic safe to use 4-patient to continue Rocephin Zithromax while waiting for the culture to finalize Dictation was produced using [employer] dictation software. please excuse any grammatical, word or spelling errors. Time with Patient: Less than 30
--- NOTE | 2024-01-13 16:14 | P.PN ---
Subjective Progress Note Date: 01/13/24 Patient is a 73-year-old white female with past medical history significant for COPD, hypertension, hyperlipidemia, hypothyroidism, and former tobacco smoker. Patient does follow in the pulmonary office with Dr. Longoria for management of her moderate COPD. She has an FEV1 66% of predicted. Reportedly, She quit smoking over 25 years ago. Normally on Advair maintenance inhaler, DuoNebs 4 times daily, and has a ProAir rescue inhaler. She does have home O2, and utilizes 2 L nasal cannula as needed. She is also steroid-dependent since the beginning of the year, on 5 mg of oral prednisone daily. Since July, the patient has been treated multiple times outpatient for COPD exacerbation. She initially responds to steroid and antibiotics, but then worsens when they are discontinued. Most recently treated with a course of Levaquin. She did have a bronchoscopy with BAL of the right middle lobe performed by Dr. Longoria on 12/06/2023. Lavage cultures demonstrated haemophilus influenzae, and she was treated outpatient with doxycycline at this time. She is completed all courses of her antibiotics. PCR also positive for CMV. She brought herself into the emergency department yesterday afternoon. She endorses worsening shortness of breath, especially with any kind of exertion. She does have a productive cough with reportedly white sputum. Denies any hemoptysis. Denies any fevers. No noted sick contacts. Denies any chest pain. She is currently resting in bed, on room air, in no acute distress. She has intermittent congested cough. She has audible wheezing. Chest x-ray shows some chronic mild streaky atelectasis in the right midlung, and small posterior pleural effusion. No obvious focal infiltrate or pneumonia. CBC on arrival shows some leukocytosis with a WBC count of 15, otherwise unremarkable. BMP also unremarkable. Troponin less than 0.012. NT proBNP 124. She has received doses of empiric antibiotics in the emergency room. Appears nontoxic. Afebrile. Hemodynamics are stable at this time. The patient is seen today January 13, 2024 in follow-up on the regular medical floor. She is currently resting in bed. Awake and alert in no acute distress. She is feeling about the same today compared to yesterday. No significant improvement. She is maintaining good O2 saturations in the 90s on room air. She has been afebrile. Hemodynamically stable. T scan of the sinuses revealed mild mucosal thickening in the right sphenoid sinus. Right septal deviation. CT scan of the chest revealed chronic streaky opacity in the right mid and lower lung vanegas representing scarring or atelectasis. Findings were present back in 2020. Echocardiogram revealed preserved left ventricular systolic function. No significant valvular abnormalities. Blood culture reveals no growth. Sputum culture reveals no growth. Procalcitonin negative at 0.04. She remains on ceftriaxone and azithromycin along with DuoNeb inhalations, Pulmicort and Perforomist inhalations, Solu-Medrol. She remains on oral diuretics. Heparin for DVT prophylaxis. Continued on Protonix. White count 10.2. Hemoglobin 12.6. Platelets 312. Sodium 138. Potassium 4.1. Bicarb 23. BUN 19. Creatinine 0.7. Glucose 165. Objective - Vital Signs Vital signs: Vital Signs Temp 97.8 F 01/13/24 13:11 Pulse 92 01/13/24 13:11 Resp 20 01/13/24 13:11 BP 156/83 01/13/24 13:11 Pulse Ox 95 01/13/24 13:11 FiO2 Intake & Output 01/12/24 01/13/24 01/13/24 18:59 06:59 18:59 Intake Total 1080 Balance 1080 Intake: Oral 1080 Other: Voiding Method Toilet # Voids 4 3 4 - Exam GENERAL EXAM: Alert, 73-year-old female, on room air, fairly comfortable in no apparent distress. HEAD: Normocephalic and atraumatic EYES: Normal reaction of pupils, equal size. NOSE: Clear with pink turbinates. THROAT: No erythema or exudates. NECK: No masses, no JVD. CHEST: No chest wall deformity. LUNGS: Equal air entry with diffuse expiratory wheezes heard throughout. No conversational dyspnea. CVS: S1 and S2 normal with no audible murmur, regular rhythm. No extra heart sounds ABDOMEN: No hepatosplenomegaly, active bowel sounds, no guarding or rigidity. SPINE: No scoliosis or deformity SKIN: No rashes CENTRAL NERVOUS SYSTEM: No focal deficits, tone is normal in all 4 extremities. EXTREMITIES: There is no peripheral edema, clubbing, or cyanosis. Peripheral pulses are intact. - Labs CBC & Chem 7: 01/13/24 03:54 05/31/24 03:54 Labs: Abnormal Lab Results - Last 24 Hours (Table) 01/12/24 01/12/24 01/12/24 Range/Units 05:23 17:17 22:18 WBC (4.50-10.00) X 10*3/uL MCHC (32.0-37.0) g/dL Neutrophils # (1.80-7.70) X 10*3/uL Monocytes # (0.20-1.00) X 10*3/uL Eosinophils # (0.04-0.35) X 10*3/uL Anion Gap (4.00-12.00) mmol/L BUN/Creatinine Ratio (12.00-20.00) Ratio Glucose (70-110) mg/dL POC Glucose (mg/dL) 138 H 151 H (70-110) mg/dL Hemoglobin A1c (<=6.0) % IgG 694.0 L (700.0-1600.0) mg/dL 01/13/24 01/13/24 01/13/24 Range/Units 03:54 03:54 03:54 WBC 10.28 H (4.50-10.00) X 10*3/uL MCHC 31.7 L (32.0-37.0) g/dL Neutrophils # 8.71 H (1.80-7.70) X 10*3/uL Monocytes # 0.13 L (0.20-1.00) X 10*3/uL Eosinophils # 0 L (0.04-0.35) X 10*3/uL Anion Gap 12.90 H (4.00-12.00) mmol/L BUN/Creatinine Ratio 26.43 H (12.00-20.00) Ratio Glucose 165 H (70-110) mg/dL POC Glucose (mg/dL) (70-110) mg/dL Hemoglobin A1c 6.3 H (<=6.0) % IgG (700.0-1600.0) mg/dL 01/13/24 01/13/24 Range/Units 05:32 11:39 WBC (4.50-10.00) X 10*3/uL MCHC (32.0-37.0) g/dL Neutrophils # (1.80-7.70) X 10*3/uL Monocytes # (0.20-1.00) X 10*3/uL Eosinophils # (0.04-0.35) X 10*3/uL Anion Gap (4.00-12.00) mmol/L BUN/Creatinine Ratio (12.00-20.00) Ratio Glucose (70-110) mg/dL POC Glucose (mg/dL) 159 H 134 H (70-110) mg/dL Hemoglobin A1c (<=6.0) % IgG (700.0-1600.0) mg/dL Microbiology - Last 24 Hours (Table) 01/11/24 17:45 Blood Culture - Preliminary Blood 01/11/24 17:00 Blood Culture - Preliminary Blood 01/12/24 12:21 Gram Stain - Preliminary Sputum Assessment and Plan Assessment: Acute COPD exacerbation, failed outpatient treatment, chest x-ray on arrival demonstrates chronic right midlung atelectasis/scarring, no obvious focal infiltrates or pneumonia. There is a possible small posterior pleural effusion noted on lateral view. No significant cardiomegaly or pulmonary vascular congestion. NT proBNP low. Procalcitonin negative. CT scan of the chest neg ative for acute process. CT scan of the sinuses with mild congestion on the right. Echocardiogram revealed preserved left ventricular systolic function. Recent history of bronchoscopy with airway examination and BAL of the right middle lobe on 12/06/2023, BAL cultures positive for haemophilus influenzae, treated outpatient with doxycycline. Elisha intermediate and Aspergillus also isolated. PCR also positive for CMV. Acute leukocytosis Acute on chronic dyspnea, secondary to above Moderate chronic obstructive pulmonary disease, with an FEV1 66% of predicted maintained on a combination of Advair maintenance inhaler, DuoNebs 4 times daily, with an albuterol rescue inhaler. Also, prednisone dependent on 5 mg p.o. tabs daily. Chronic hypoxemic respiratory failure, secondary to above, normally maintained on 2 L/min nasal cannula as needed at home History of right hilar mass, follow-up chest CT from April, demonstrated persistent right perihilar density, slightly less conspicuous than prior study, likely reflecting parenchymal scarring. CT scan from 01/12/2024 revealed chronic appearing streaky opacity right mid and lower lung vanegas representing scarring or atelectasis. Findings present back in 2020. History of hypertension History of hyperlipidemia History of hypothyroidism Former tobacco dependence, quit smoking over 25 years ago Plan: The patient was seen and evaluated CT scan of the chest, sinuses, echocardiogram reviewed Procalcitonin negative, no acute process on CT chest Continue bronchodilators and steroids Continue empiric antibiotics We will continue to follow I have personally seen and examined the patient, performed the documentation and the assessment and plan as written. Number of minutes spent on the visit: 10.
[2024-01-13 16:54] LABS: Glucose,Whole Blood 122 mg/dL (70-110)
[2024-01-13 20:49] LABS: Glucose,Whole Blood 151 mg/dL (70-110)
--- NOTE | 2024-01-14 03:58 | PN ---
PROGRESS NOTE DATE OF SERVICE: 01/13/2024 SUBJECTIVE: This 73-year-old woman was admitted with COPD, asthma, and right-sided pneumonia with failure of outpatient treatment, is being closely monitored. No chest pain. No palpitation. A chest CT was done, which showed some scarring and atelectasis. OBJECTIVE: VITAL SIGNS: Pulse is 74, blood pressure is 150/90, respirations 20. HEENT: Conjunctivae normal. CARDIOVASCULAR: S1, S2. RESPIRATIONS: Few scattered rhonchi and crackles. ABDOMEN: Soft. LABORATORY DATA: Reviewed. ASSESSMENT: 1. Chronic obstructive pulmonary disease, asthma, acute exacerbation with possible right-sided pneumonia with failure of outpatient treatment. 2. Gastroesophageal reflux disease. 3. Hypertension. 4. Hyperlipidemia. 5. Chronic cough. 6. Multiple medical issues. RECOMMENDATIONS: I recommend to continue current management, continue symptomatic treatment. Continue bronchodilators, steroids, and empiric antibiotics. Closely follow. Guarded prognosis. Further recommendations to follow. The patient is symptomatic for the last 4 months according to her. MMODL / IJN: [id number] /
[2024-01-14 06:06] LABS: Glucose,Whole Blood 141 mg/dL (70-110)
[2024-01-14 07:48] LABS: Basophils % (A) 0 %; Eosinophils % (A) 0 %; HCT 43.6 % (34.0-46.0); HGB 13.8 gm/dL (11.4-16.0); Lymphocytes # (A) 1.9 k/uL (1.0-4.8); Lymphocytes % (A) 10 %; MCHC 31.7 g/dL (31.0-37.0); MCV 94.7 fL (80.0-100.0); Mean Platelet Volume 8.5; Monocytes # (A) 0.5 k/uL (0-1.0); Monocytes % (A) 3 %; Neutrophils % (A) 87 %; Platelet Count 340 k/uL (150-450); RDW 13.8 % (11.5-15.5); WBC 19.5 k/uL (3.8-10.6)
[2024-01-14 08:01] LABS: African American GFR (CKD) >90 (>60 ml/min/1.73 sqM); Anion Gap 9 mmol/L; Blood Urea Nitrogen 22 mg/dL (7-17); Calcium 9.8 mg/dL (8.4-10.2); Carbon Dioxide 26 mmol/L (22-30); Chloride 103 mmol/L (98-107); Glucose 143 mg/dL (74-99); Non-African American GFR(CKD) >90 (>60 ml/min/1.73 sqM); Potassium 4.3 mmol/L (3.5-5.1); Sodium 138 mmol/L (137-145)
[2024-01-14 11:24] LABS: Glucose,Whole Blood 117 mg/dL (70-110)
--- NOTE | 2024-01-14 12:28 | P.PN ---
Subjective Progress Note Date: 01/14/24 Patient is a 73-year-old white female with past medical history significant for COPD, hypertension, hyperlipidemia, hypothyroidism, and former tobacco smoker. Patient does follow in the pulmonary office with Dr. Longoria for management of her moderate COPD. She has an FEV1 66% of predicted. Reportedly, She quit smoking over 25 years ago. Normally on Advair maintenance inhaler, DuoNebs 4 times daily, and has a ProAir rescue inhaler. She does have home O2, and utilizes 2 L nasal cannula as needed. She is also steroid-dependent since the beginning of the year, on 5 mg of oral prednisone daily. Since July, the patient has been treated multiple times outpatient for COPD exacerbation. She initially responds to steroid and antibiotics, but then worsens when they are discontinued. Most recently treated with a course of Levaquin. She did have a bronchoscopy with BAL of the right middle lobe performed by Dr. Longoria on 12/06/2023. Lavage cultures demonstrated haemophilus influenzae, and she was treated outpatient with doxycycline at this time. She is completed all courses of her antibiotics. PCR also positive for CMV. She brought herself into the emergency department yesterday afternoon. She endorses worsening shortness of breath, especially with any kind of exertion. She does have a productive cough with reportedly white sputum. Denies any hemoptysis. Denies any fevers. No noted sick contacts. Denies any chest pain. She is currently resting in bed, on room air, in no acute distress. She has intermittent congested cough. She has audible wheezing. Chest x-ray shows some chronic mild streaky atelectasis in the right midlung, and small posterior pleural effusion. No obvious focal infiltrate or pneumonia. CBC on arrival shows some leukocytosis with a WBC count of 15, otherwise unremarkable. BMP also unremarkable. Troponin less than 0.012. NT proBNP 124. She has received doses of empiric antibiotics in the emergency room. Appears nontoxic. Afebrile. Hemodynamics are stable at this time. The patient is seen today January 13, 2024 in follow-up on the regular medical floor. She is currently resting in bed. Awake and alert in no acute distress. She is feeling about the same today compared to yesterday. No significant improvement. She is maintaining good O2 saturations in the 90s on room air. She has been afebrile. Hemodynamically stable. T scan of the sinuses revealed mild mucosal thickening in the right sphenoid sinus. Right septal deviation. CT scan of the chest revealed chronic streaky opacity in the right mid and lower lung vanegas representing scarring or atelectasis. Findings were present back in 2020. Echocardiogram revealed preserved left ventricular systolic function. No significant valvular abnormalities. Blood culture reveals no growth. Sputum culture reveals no growth. Procalcitonin negative at 0.04. She remains on ceftriaxone and azithromycin along with DuoNeb inhalations, Pulmicort and Perforomist inhalations, Solu-Medrol. She remains on oral diuretics. Heparin for DVT prophylaxis. Continued on Protonix. White count 10.2. Hemoglobin 12.6. Platelets 312. Sodium 138. Potassium 4.1. Bicarb 23. BUN 19. Creatinine 0.7. Glucose 165. The patient is seen today January 14, 2024 in follow-up on the regular medical floor. She is awake and alert in no acute distress. Feeling better today compared to yesterday. Denies any worsening shortness of breath. She does have a loose cough. No fever or chills. She is continued on DuoNeb inhalations, Pulmicort and Perforomist inhalations, Solu-Medrol, singulair. Heparin for DVT prophylaxis. Remains on oral diuretics. Remains on antibiotics in the form of ceftriaxone and azithromycin. Sputum culture revealed no growth. Blood culture revealed no growth. White count 19.5. Hemoglobin 13.8. Platelets 340. Sodium 138. Potassium 4.3. Bicarb 26. BUN 22. Creatinine 0.59. Glucose 143. Objective - Vital Signs Vital signs: Vital Signs Temp 97.9 F 01/14/24 07:10 Pulse 72 01/14/24 11:45 Resp 19 01/14/24 07:10 BP 163/91 01/14/24 07:10 Pulse Ox 93 L 01/14/24 07:10 FiO2 Intake & Output 01/13/24 01/14/24 01/14/24 18:59 06:59 18:59 Intake Total 1080 120 Balance 1080 120 Intake: Oral 1080 120 Other: Voiding Method Toilet # Voids 4 2 - Exam GENERAL EXAM: Alert, pleasant 73-year-old female, on room air, sitting up in bed, comfortable in no apparent distress. HEAD: Normocephalic and atraumatic EYES: Normal reaction of pupils, equal size. NOSE: Clear with pink turbinates. THROAT: No erythema or exudates. NECK: No masses, no JVD. CHEST: No chest wall deformity. LUNGS: Equal air entry with diffuse expiratory wheezes heard throughout. No conversational dyspnea. CVS: S1 and S2 normal with no audible murmur, regular rhythm. No extra heart sounds ABDOMEN: No hepatosplenomegaly, active bowel sounds, no guarding or rigidity. SPINE: No scoliosis or deformity SKIN: No rashes CENTRAL NERVOUS SYSTEM: No focal deficits, tone is normal in all 4 extremities. EXTREMITIES: There is no peripheral edema, clubbing, or cyanosis. Peripheral pulses are intact. - Labs CBC & Chem 7: 01/14/24 07:08 01/14/24 07:08 Labs: Abnormal Lab Results - Last 24 Hours (Table) 01/13/24 01/13/24 01/14/24 Range/Units 16:53 20:45 06:04 WBC (3.8-10.6) k/uL Neutrophils # (1.3-7.7) k/uL BUN (7-17) mg/dL Glucose (74-99) mg/dL POC Glucose (mg/dL) 122 H 151 H 141 H (70-110) mg/dL 01/14/24 01/14/24 01/14/24 Range/Units 07:08 07:08 11:23 WBC 19.5 H (3.8-10.6) k/uL Neutrophils # 17.0 H (1.3-7.7) k/uL BUN 22 H (7-17) mg/dL Glucose 143 H (74-99) mg/dL POC Glucose (mg/dL) 117 H (70-110) mg/dL Microbiology - Last 24 Hours (Table) 01/12/24 12:21 Gram Stain - Final Sputum Sputum Culture - Final 01/11/24 17:45 Blood Culture - Preliminary Blood 01/11/24 17:00 Blood Culture - Preliminary Blood Assessment and Plan Assessment: Acute COPD exacerbation, failed outpatient treatment, chest x-ray on arrival demonstrates chronic right midlung atelectasis/scarring, no obvious focal infiltrates or pneumonia. There is a possible small posterior pleural effusion noted on lateral view. No significant cardiomegaly or pulmonary vascular congestion. NT proBNP low. Procalcitonin negative. CT scan of the chest negative for acute process. CT scan of the sinuses with mild congestion on the right. Echocardiogram revealed preserved left ventricular systolic function. Recent history of bronchoscopy with airway examination and BAL of the right middle lobe on 12/06/2023, BAL cultures positive for haemophilus influenzae, treated outpatient with doxycycline. Elisha intermedia and Aspergillus also isolated. PCR also positive for CMV. Acute leukocytosis Acute on chronic dyspnea, secondary to above Moderate chronic obstructive pulmonary disease, with an FEV1 66% of predicted maintained on a combination of Advair maintenance inhaler, DuoNebs 4 times daily, with an albuterol rescue inhaler. Also, prednisone dependent on 5 mg p.o. tabs daily. Chronic hypoxemic respiratory failure, secondary to above, normally maintained on 2 L/min nasal cannula as needed at home History of right hilar mass, follow-up chest CT from April, demonstrated persistent right perihilar density, slightly less conspicuous than prior study, likely reflecting parenchymal scarring. CT scan from 01/12/2024 revealed chronic appearing streaky opacity right mid and lower lung vanegas representing scarring or atelectasis. Findings present back in 2020. History of hypertension History of hyperlipidemia History of hypothyroidism Former tobacco dependence, quit smoking over 25 years ago Plan: The patient was seen and evaluated Labs and medications reviewed Continue bronchodilators and steroids Continue empiric antibiotics Stable and on room air We will continue to follow I have personally seen and examined the patient, performed the documentation and the assessment and plan as written. Number of minutes spent on the visit: 10.
--- NOTE | 2024-01-14 14:55 | P.PN ---
Subjective Progress Note Date: 01/14/24 Principal diagnosis: Reason for follow-up is possible pneumonia Patient is a 73-year-old female past medical history significant for hypertension hyperlipidemia reflux COPD asthma pneumonia presenting to the hospital for evaluation of increasing shortness of breath and cough symptoms have been chronic with acute worsening and has been multiple course of antibiotic in the outpatient setting, chest x-ray with a streaky opacity right midlung. On today's evaluation that is 01/14/2024, Patient is afebrile patient is currently on room air however still complaining of shortness of breath wheezing she did have a cough less productive no nausea no vomiting no abdominal pain no diarrhea. Patient white count is up to 19.5 today, creatinine 0.59 cultures so far negative Objective - Vital Signs Vital signs: Vital Signs Temp 97.9 F 01/14/24 07:10 Pulse 72 01/14/24 11:45 Resp 19 01/14/24 07:10 BP 163/91 01/14/24 07:10 Pulse Ox 93 L 01/14/24 07:10 FiO2 Intake & Output 01/13/24 01/14/24 01/14/24 18:59 06:59 18:59 Intake Total 1080 120 Balance 1080 120 Intake: Oral 1080 120 Other: Voiding Method Toilet # Voids 4 2 - Exam GENERAL DESCRIPTION: An elderly female lying in bed in no distress RESPIRATORY SYSTEM: Unlabored breathing , coarse breath sounds at bases HEART: S1 S2 regular rate and rhythm , ABDOMEN: Soft , no tenderness EXTREMITIES: No edema feet - Labs CBC & Chem 7: 01/14/24 07:08 01/14/24 07:08 Labs: Abnormal Lab Results - Last 24 Hours (Table) 01/13/24 01/13/24 01/14/24 Range/Units 16:53 20:45 06:04 WBC (3.8-10.6) k/uL Neutrophils # (1.3-7.7) k/uL BUN (7-17) mg/dL Glucose (74-99) mg/dL POC Glucose (mg/dL) 122 H 151 H 141 H (70-110) mg/dL 01/14/24 01/14/24 01/14/24 Range/Units 07:08 07:08 11:23 WBC 19.5 H (3.8-10.6) k/uL Neutrophils # 17.0 H (1.3-7.7) k/uL BUN 22 H (7-17) mg/dL Glucose 143 H (74-99) mg/dL POC Glucose (mg/dL) 117 H (70-110) mg/dL Microbiology - Last 24 Hours (Table) 01/12/24 12:21 Gram Stain - Final Sputum Sputum Culture - Final 01/11/24 17:45 Blood Culture - Preliminary Blood 01/11/24 17:00 Blood Culture - Preliminary Blood Assessment and Plan (1) Allergy to multiple antibiotics Current Visit: Yes Status: Acute Code(s): Z88.1 - ALLERGY STATUS TO OTHER ANTIBIOTIC AGENTS SNOMED Code(s): 137638188 (2) Leukocytosis Current Visit: Yes Status: Acute Code(s): D72.829 - ELEVATED WHITE BLOOD CELL COUNT, UNSPECIFIED SNOMED Code(s): 528196317 (3) Pneumonia Current Visit: Yes Status: Acute Code(s): J18.9 - PNEUMONIA, UNSPECIFIED ORGANISM SNOMED Code(s): 987309325 Plan: 1patient presented to hospital with increased shortness of breath productive cough did have elevated white count chest x-ray with an opacity concerning for pneumonia in this patient has been on multiple courses of antibiotics in the outpatient setting 2 blood and sputum culture has been obtained which are currently pending 3-patient with multiple antibiotic ALLERGIES that would limit the number of antibiotic safe to use 4-patient to continue Rocephin Zithromax, culture IV negative so far noticed to have slight worsening of the white count more likely steroid related and will be monitored closely Dictation was produced using [employer] dictation software. please excuse any grammatical, word or spelling errors. Time with Patient: Less than 30
[2024-01-14 16:27] LABS: Glucose,Whole Blood 116 mg/dL (70-110)
[2024-01-14 20:07] LABS: Glucose,Whole Blood 127 mg/dL (70-110)
[2024-01-14] MEDS: IPRATROPIUM-ALBUTEROL 3 ML NEB INHALATION STA (21:33)
--- NOTE | 2024-01-15 00:56 | PN ---
PROGRESS NOTE DATE OF SERVICE: 01/14/2024 SUBJECTIVE: This is a 73-year-old woman, who was admitted with COPD, asthma, and possible right- sided pneumonia with failure of outpatient treatment, is being closely monitored. No chest pain. No palpitations. No fever. Multiple consultants are following the patient closely. CT scan reviewed. OBJECTIVE: VITAL SIGNS: Pulse is 84, blood pressure 127/69, respirations 18. CHEST: A few scattered rhonchi and crackles. ABDOMEN: Soft. NERVOUS SYSTEM: Nonfocal. LABORATORY DATA: WBC 19.5. Rest of the labs are noted. ASSESSMENT: 1. Chronic obstructive pulmonary disease acute exacerbation, asthma acute exacerbation, possible right-sided pneumonia with failure of outpatient treatment. 2. Gastroesophageal reflux disease. 3. Hypertension. 4. Hyperlipidemia. 5. Chronic cough. 6. Multiple medical issues. RECOMMENDATIONS: Recommend to continue current management. Continue symptomatic treatment. Continue with bronchodilators. Continue steroids. Continue with empiric antibiotics. Closely follow with Infectious Disease and Pulmonary. Guarded prognosis. Further recommendations to follow. MMODL / IJN: [id number] /
[2024-01-15 06:18] LABS: Glucose,Whole Blood 137 mg/dL (70-110)
[2024-01-15 09:22] LABS: Basophils # (A) 0.01 X 10*3/uL (0.00-0.10); Basophils % (A) 0.1 %; Eosinophils # (A) 0 X 10*3/uL (0.04-0.35); Eosinophils % (A) 0 %; HCT 39.3 % (37.2-46.3); HGB 12.4 g/dL (12.0-15.0); Lymphocytes % (A) 7.8 %; MCHC 31.6 g/dL (32.0-37.0); MCV 94.9 FL (80.0-97.0); Mean Platelet Volume 10.6 FL (9.5-12.2); Monocytes # (A) 0.36 X 10*3/uL (0.20-1.00); Monocytes % (A) 2.5 %; NRBC Per 100 WBC 0 X 10*3/uL (0.00-0.01); Neutrophils # (A) 12.61 X 10*3/uL (1.80-7.70); Neutrophils % (A) 89.2 %; Platelet Count 308 X 10*3/uL (140-440); RBC 4.14 X 10*6/uL (4.10-5.20); RDW 14.1 % (11.5-14.5); WBC 14.14 X 10*3/uL (4.50-10.00)
[2024-01-15 09:24] LABS: BUN/Creat Ratio 28.86 Ratio (12.00-20.00); Blood Urea Nitrogen 20.2 mg/dL (9.0-27.0); Calcium 9.6 mg/dL (8.7-10.3); Carbon Dioxide 24.2 mmol/L (21.6-31.8); Chloride 101 mmol/L (96-109); Glucose 156 mg/dL (70-110); Potassium 4.5 mmol/L (3.5-5.5); Sodium 138 mmol/L (135-145)
[2024-01-15 11:26] LABS: Glucose,Whole Blood 122 mg/dL (70-110)
[2024-01-15] MEDS: amLODIPine 10 MG TAB PO SCH (14:11)
--- NOTE | 2024-01-15 14:24 | P.PN ---
Subjective Progress Note Date: 01/15/24 Patient is a 73-year-old white female with past medical history significant for COPD, hypertension, hyperlipidemia, hypothyroidism, and former tobacco smoker. Patient does follow in the pulmonary office with Dr. Longoria for management of her moderate COPD. She has an FEV1 66% of predicted. Reportedly, She quit smoking over 25 years ago. Normally on Advair maintenance inhaler, DuoNebs 4 times daily, and has a ProAir rescue inhaler. She does have home O2, and utilizes 2 L nasal cannula as needed. She is also steroid-dependent since the beginning of the year, on 5 mg of oral prednisone daily. Since July, the patient has been treated multiple times outpatient for COPD exacerbation. She initially responds to steroid and antibiotics, but then worsens when they are discontinued. Most recently treated with a course of Levaquin. She did have a bronchoscopy with BAL of the right middle lobe performed by Dr. Longoria on 12/06/2023. Lavage cultures demonstrated haemophilus influenzae, and she was treated outpatient with doxycycline at this time. She is completed all courses of her antibiotics. PCR also positive for CMV. She brought herself into the emergency department yesterday afternoon. She endorses worsening shortness of breath, especially with any kind of exertion. She does have a productive cough with reportedly white sputum. Denies any hemoptysis. Denies any fevers. No noted sick contacts. Denies any chest pain. She is currently resting in bed, on room air, in no acute distress. She has intermittent congested cough. She has audible wheezing. Chest x-ray shows some chronic mild streaky atelectasis in the right midlung, and small posterior pleural effusion. No obvious focal infiltrate or pneumonia. CBC on arrival shows some leukocytosis with a WBC count of 15, otherwise unremarkable. BMP also unremarkable. Troponin less than 0.012. NT proBNP 124. She has received doses of empiric antibiotics in the emergency room. Appears nontoxic. Afebrile. Hemodynamics are stable at this time. The patient is seen today January 13, 2024 in follow-up on the regular medical floor. She is currently resting in bed. Awake and alert in no acute distress. She is feeling about the same today compared to yesterday. No significant improvement. She is maintaining good O2 saturations in the 90s on room air. She has been afebrile. Hemodynamically stable. T scan of the sinuses revealed mild mucosal thickening in the right sphenoid sinus. Right septal deviation. CT scan of the chest revealed chronic streaky opacity in the right mid and lower lung vanegas representing scarring or atelectasis. Findings were present back in 2020. Echocardiogram revealed preserved left ventricular systolic function. No significant valvular abnormalities. Blood culture reveals no growth. Sputum culture reveals no growth. Procalcitonin negative at 0.04. She remains on ceftriaxone and azithromycin along with DuoNeb inhalations, Pulmicort and Perforomist inhalations, Solu-Medrol. She remains on oral diuretics. Heparin for DVT prophylaxis. Continued on Protonix. White count 10.2. Hemoglobin 12.6. Platelets 312. Sodium 138. Potassium 4.1. Bicarb 23. BUN 19. Creatinine 0.7. Glucose 165. The patient is seen today January 14, 2024 in follow-up on the regular medical floor. She is awake and alert in no acute distress. Feeling better today compared to yesterday. Denies any worsening shortness of breath. She does have a loose cough. No fever or chills. She is continued on DuoNeb inhalations, Pulmicort and Perforomist inhalations, Solu-Medrol, singulair. Heparin for DVT prophylaxis. Remains on oral diuretics. Remains on antibiotics in the form of ceftriaxone and azithromycin. Sputum culture revealed no growth. Blood culture revealed no growth. White count 19.5. Hemoglobin 13.8. Platelets 340. Sodium 138. Potassium 4.3. Bicarb 26. BUN 22. Creatinine 0.59. Glucose 143. The patient is seen today January 15, 2024 in follow-up on the regular medical floor. She is sitting up in bed. Awake and alert in no acute distress. Continues to progress nicely. She is less short of breath. Less bronchospastic and wheezing. She is continued on her DuoNeb inhalations, Pulmicort inhalations, Solu-Medrol, Singulair. Heparin for DVT prophylaxis. White count 14.1. Hemoglobin 12.4. Platelets 308. Sodium 138. Potassium 4.5. Bicarb 24. BUN 20. Creatinine 0.7. Glucose 156. Objective - Vital Signs Vital signs: Vital Signs Temp 98.0 F 01/15/24 13:25 Pulse 86 01/15/24 13:25 Resp 17 01/15/24 13:25 BP 130/81 01/15/24 13:25 Pulse Ox 95 01/15/24 13:25 FiO2 Intake & Output 01/14/24 01/15/24 01/15/24 18:59 06:59 18:59 Other: # Voids 3 4 - Exam GENERAL EXAM: Alert, pleasant 73-year-old female, on room air, in no apparent distress. HEAD: Normocephalic and atraumatic EYES: Normal reaction of pupils, equal size. NOSE: Clear with pink turbinates. THROAT: No erythema or exudates. NECK: No masses, no JVD. CHEST: No chest wall deformity. LUNGS: Equal air entry with diffuse expiratory wheezes heard throughout. No conversational dyspnea. CVS: S1 and S2 normal with no audible murmur, regular rhythm. No extra heart sounds ABDOMEN: No hepatosplenomegaly, active bowel sounds, no guarding or rigidity. SPINE: No scoliosis or deformity SKIN: No rashes CENTRAL NERVOUS SYSTEM: No focal deficits, tone is normal in all 4 extremities. EXTREMITIES: There is no peripheral edema, clubbing, or cyanosis. Peripheral pulses are intact. - Labs CBC & Chem 7: 01/15/24 04:44 01/15/24 04:44 Labs: Abnormal Lab Results - Last 24 Hours (Table) 01/14/24 01/14/24 01/15/24 Range/Units 16:25 20:06 04:44 WBC 14.14 H (4.50-10.00) X 10*3/uL MCHC 31.6 L (32.0-37.0) g/dL Immature Gran # 0.06 H (0.00-0.04) X 10*3/uL Neutrophils # 12.61 H (1.80-7.70) X 10*3/uL Eosinophils # 0 L (0.04-0.35) X 10*3/uL Anion Gap (4.00-12.00) mmol/L BUN/Creatinine Ratio (12.00-20.00) Ratio Glucose (70-110) mg/dL POC Glucose (mg/dL) 116 H 127 H (70-110) mg/dL 01/15/24 01/15/24 01/15/24 Range/Units 04:44 06:17 11:25 WBC (4.50-10.00) X 10*3/uL MCHC (32.0-37.0) g/dL Immature Gran # (0.00-0.04) X 10*3/uL Neutrophils # (1.80-7.70) X 10*3/uL Eosinophils # (0.04-0.35) X 10*3/uL Anion Gap 12.80 H (4.00-12.00) mmol/L BUN/Creatinine Ratio 28.86 H (12.00-20.00) Ratio Glucose 156 H (70-110) mg/dL POC Glucose (mg/dL) 137 H 122 H (70-110) mg/dL Microbiology - Last 24 Hours (Table) 01/11/24 17:45 Blood Culture - Preliminary Blood 01/11/24 17:00 Blood Culture - Preliminary Blood 01/12/24 12:21 Gram Stain - Final Sputum Sputum Culture - Final Assessment and Plan Assessment: Acute COPD exacerbation, failed outpatient treatment, chest x-ray on arrival demonstrates chronic right midlung atelectasis/scarring, no obvious focal in filtrates or pneumonia. There is a possible small posterior pleural effusion noted on lateral view. No significant cardiomegaly or pulmonary vascular congestion. NT proBNP low. Procalcitonin negative. CT scan of the chest negative for acute process. CT scan of the sinuses with mild congestion on the right. Echocardiogram revealed preserved left ventricular systolic function. Recent history of bronchoscopy with airway examination and BAL of the right middle lobe on 12/06/2023, BAL cultures positive for haemophilus influenzae, treated outpatient with doxycycline. Elisha intermedia and Aspergillus also isolated. PCR also positive for CMV. Acute leukocytosis Acute on chronic dyspnea, secondary to above Moderate chronic obstructive pulmonary disease, with an FEV1 66% of predicted ma intained on a combination of Advair maintenance inhaler, DuoNebs 4 times daily, with an albuterol rescue inhaler. Also, prednisone dependent on 5 mg p.o. tabs daily. Chronic hypoxemic respiratory failure, secondary to above, normally maintained on 2 L/min nasal cannula as needed at home History of right hilar mass, follow-up chest CT from April, demonstrated persistent right perihilar density, slightly less conspicuous than prior study, likely reflecting parenchymal scarring. CT scan from 01/12/2024 revealed chronic appearing streaky opacity right mid and lower lung vanegas representing scarring or atelectasis. Findings present back in 2020. History of hypertension History of hyperlipidemia History of hypothyroidism Former tobacco dependence, quit smoking over 25 years ago Plan: The patient was seen and evaluated Labs and medications reviewed Continue the current treatment plan Stable and on room air Probable discharge in a.m. We will continue to follow I have personally seen and examined the patient, performed the documentation and the assessment and plan as written. Number of minutes spent on the visit: 10.
[2024-01-15 16:36] LABS: Glucose,Whole Blood 131 mg/dL (70-110)
[2024-01-15 22:07] LABS: Glucose,Whole Blood 142 mg/dL (70-110)
--- NOTE | 2024-01-15 23:29 | PN ---
PROGRESS NOTE DATE OF SERVICE: 01/15/2024 SUBJECTIVE: This is a 73-year-old woman, who was admitted with recurrent pneumonia, is being closely monitored at this time. The patient is on bronchodilators. The patient still has some wheezing. WBC 14.4. CAT scan showed changes. Cultures are negative so far. Multiple consultants are following the patient closely. PAST MEDICAL HISTORY: Reviewed. REVIEW OF SYSTEMS: Fourteen-point review is negative. CURRENT MEDICATIONS: Reviewed include DuoNeb, dose and rest of medications reviewed. PHYSICAL EXAMINATION: VITAL SIGNS: Pulse is 75, blood pressure 195/93, and respirations 18. HEENT: Conjunctivae normal. NECK: No jugular venous distention. CARDIOVASCULAR: S1, S2. CHEST: Bilateral scattered rhonchi and expiratory wheezing. ABDOMEN: Soft. NERVOUS SYSTEM: Nonfocal. LABORATORY DATA: Reviewed. ASSESSMENT: 1. Chronic obstructive pulmonary disease acute exacerbation, asthma, acute exacerbation with possible right-sided pneumonia with failure of outpatient treatment. 2. Gastroesophageal reflux disease. 3. Elevated WBC. 4. Hypertension. 5. Hyperlipidemia. 6. Chronic cough. 7. Multiple medical issues. RECOMMENDATIONS: Recommend to continue current management. Continue symptomatic treatment. Continue the antibiotics, bronchodilators, and steroids. The patient is extremely concerned about the recurrence of pneumonia. We would closely follow. Add Norvasc to the current regimen. Prognosis guarded. Further recommendations to follow. Keep high- dose IV steroids. MMODL / NOEMYN: [id number] /
[2024-01-16] MEDS: IPRATROPIUM-ALBUTEROL 3 ML NEB INHALATION PRN (04:42)
[2024-01-16] MEDS: hydrALAZINE HCL 20 MG/ML 1 ML VIAL IVP STA (04:56)
[2024-01-16 05:53] LABS: Glucose,Whole Blood 149 mg/dL (70-110)
[2024-01-16 08:43] LABS: Basophils # (A) 0.02 X 10*3/uL (0.00-0.10); Basophils % (A) 0.1 %; Eosinophils # (A) 0 X 10*3/uL (0.04-0.35); Eosinophils % (A) 0 %; HCT 44.2 % (37.2-46.3); HGB 14.4 g/dL (12.0-15.0); Lymphocytes % (A) 7.8 %; MCH 30.7 pg (27.0-32.0); MCHC 32.6 g/dL (32.0-37.0); MCV 94.2 FL (80.0-97.0); Mean Platelet Volume 10.3 FL (9.5-12.2); Monocytes # (A) 0.57 X 10*3/uL (0.20-1.00); NRBC Per 100 WBC 0 X 10*3/uL (0.00-0.01); Neutrophils # (A) 12.42 X 10*3/uL (1.80-7.70); Neutrophils % (A) 87.5 %; Platelet Count 326 X 10*3/uL (140-440); RBC 4.69 X 10*6/uL (4.10-5.20); WBC 14.19 X 10*3/uL (4.50-10.00)
[2024-01-16 08:59] LABS: BUN/Creat Ratio 23.11 Ratio (12.00-20.00); Blood Urea Nitrogen 20.8 mg/dL (9.0-27.0); Calcium 9.9 mg/dL (8.7-10.3); Carbon Dioxide 27.1 mmol/L (21.6-31.8); Chloride 95 mmol/L (96-109); Glucose 153 mg/dL (70-110); Potassium 4.3 mmol/L (3.5-5.5); Sodium 136 mmol/L (135-145)
[2024-01-16 11:22] LABS: Glucose,Whole Blood 111 mg/dL (70-110)
[2024-01-16 13:22] VITALS: BP 143/77; PULSE 88; RESP 19; TEMP 97.8
--- NOTE | 2024-01-16 13:23 | DS ---
DISCHARGE SUMMARY FINAL DIAGNOSES: 1. Chronic obstructive pulmonary disease acute exacerbation, asthma acute exacerbation, possible right-sided pneumonia with failure of outpatient treatment. 2. Gastroesophageal reflux disease. 3. Elevated WBC. 4. Hypertension. 5. Hyperlipidemia. 6. Chronic cough. DISCHARGE DISPOSITION: The patient will be discharged in stable condition with guarded prognosis. HISTORY OF PRESENT ILLNESS: This is a 73-year-old woman with a past medical history of multiple medical problems, admitted with cough and features of pneumonia, treated with antibiotics, improved significantly. Dr. Gutierrez and Dr. Mane saw the patient. The patient is keen on going home at this time. Patient will be discharged in stable condition and guarded prognosis. PHYSICAL EXAMINATION: CARDIOVASCULAR: S1, S2. RESPIRATIONS: Few scattered rhonchi. The patient will be discharged on Norvasc 10 mg daily and prednisone taper and continue the bronchodilators. Please refer to the medication sheet for list of medications and follow up with primary physician and follow up with Pulmonary as recommended. MMODL / NOEMYN: [id number] /
--- NOTE | 2024-01-16 14:05 | P.PN ---
Subjective Progress Note Date: 01/16/24 Patient is a 73-year-old white female with past medical history significant for COPD, hypertension, hyperlipidemia, hypothyroidism, and former tobacco smoker. Patient does follow in the pulmonary office with Dr. Longoria for management of her moderate COPD. She has an FEV1 66% of predicted. Reportedly, She quit smoking over 25 years ago. Normally on Advair maintenance inhaler, DuoNebs 4 times daily, and has a ProAir rescue inhaler. She does have home O2, and utilizes 2 L nasal cannula as needed. She is also steroid-dependent since the beginning of the year, on 5 mg of oral prednisone daily. Since July, the patient has been treated multiple times outpatient for COPD exacerbation. She initially responds to steroid and antibiotics, but then worsens when they are discontinued. Most recently treated with a course of Levaquin. She did have a bronchoscopy with BAL of the right middle lobe performed by Dr. Longoria on 12/06/2023. Lavage cultures demonstrated haemophilus influenzae, and she was treated outpatient with doxycycline at this time. She is completed all courses of her antibiotics. PCR also positive for CMV. She brought herself into the emergency department yesterday afternoon. She endorses worsening shortness of breath, especially with any kind of exertion. She does have a productive cough with reportedly white sputum. Denies any hemoptysis. Denies any fevers. No noted sick contacts. Denies any chest pain. She is currently resting in bed, on room air, in no acute distress. She has intermittent congested cough. She has audible wheezing. Chest x-ray shows some chronic mild streaky atelectasis in the right midlung, and small posterior pleural effusion. No obvious focal infiltrate or pneumonia. CBC on arrival shows some leukocytosis with a WBC count of 15, otherwise unremarkable. BMP also unremarkable. Troponin less than 0.012. NT proBNP 124. She has received doses of empiric antibiotics in the emergency room. Appears nontoxic. Afebrile. Hemodynamics are stable at this time. The patient is seen today January 13, 2024 in follow-up on the regular medical floor. She is currently resting in bed. Awake and alert in no acute distress. She is feeling about the same today compared to yesterday. No significant improvement. She is maintaining good O2 saturations in the 90s on room air. She has been afebrile. Hemodynamically stable. T scan of the sinuses revealed mild mucosal thickening in the right sphenoid sinus. Right septal deviation. CT scan of the chest revealed chronic streaky opacity in the right mid and lower lung vanegas representing scarring or atelectasis. Findings were present back in 2020. Echocardiogram revealed preserved left ventricular systolic function. No significant valvular abnormalities. Blood culture reveals no growth. Sputum culture reveals no growth. Procalcitonin negative at 0.04. She remains on ceftriaxone and azithromycin along with DuoNeb inhalations, Pulmicort and Perforomist inhalations, Solu-Medrol. She remains on oral diuretics. Heparin for DVT prophylaxis. Continued on Protonix. White count 10.2. Hemoglobin 12.6. Platelets 312. Sodium 138. Potassium 4.1. Bicarb 23. BUN 19. Creatinine 0.7. Glucose 165. The patient is seen today January 14, 2024 in follow-up on the regular medical floor. She is awake and alert in no acute distress. Feeling better today compared to yesterday. Denies any worsening shortness of breath. She does have a loose cough. No fever or chills. She is continued on DuoNeb inhalations, Pulmicort and Perforomist inhalations, Solu-Medrol, singulair. Heparin for DVT prophylaxis. Remains on oral diuretics. Remains on antibiotics in the form of ceftriaxone and azithromycin. Sputum culture revealed no growth. Blood culture revealed no growth. White count 19.5. Hemoglobin 13.8. Platelets 340. Sodium 138. Potassium 4.3. Bicarb 26. BUN 22. Creatinine 0.59. Glucose 143. The patient is seen today January 15, 2024 in follow-up on the regular medical floor. She is sitting up in bed. Awake and alert in no acute distress. Continues to progress nicely. She is less short of breath. Less bronchospastic and wheezing. She is continued on her DuoNeb inhalations, Pulmicort inhalations, Solu-Medrol, Singulair. Heparin for DVT prophylaxis. White count 14.1. Hemoglobin 12.4. Platelets 308. Sodium 138. Potassium 4.5. Bicarb 24. BUN 20. Creatinine 0.7. Glucose 156. The patient is seen today January 16, 2024 in follow-up on the regular medical floor. She is awake and alert in no acute distress. Maintaining good O2 saturations in the 90s on room air. She is resting comfortably in bed. She denies any worsening shortness of breath, cough or congestion. She is afebrile. Hemodynamically stable. She is feeling back to her baseline. She has been continued on DuoNeb inhalations, Pulmicort and Perforomist inhalations, Solu- Medrol and Singulair. Heparin for DVT prophylaxis. White count 14.9. Hemoglobin 14.4. Sodium 136. Potassium 4.3. Bicarb 27. BUN 21. Creatinine 0.9. Glucose 153. Objective - Vital Signs Vital signs: Vital Signs Temp 97.8 F 01/16/24 07:33 Pulse 88 01/16/24 09:25 Resp 19 01/16/24 07:33 BP 143/77 01/16/24 07:33 Pulse Ox 95 01/16/24 07:33 FiO2 Intake & Output 01/15/24 01/16/24 01/16/24 18:59 06:59 18:59 Other: Voiding Method Toilet # Voids 4 5 - Exam GENERAL EXAM: Alert, 73-year-old female, sitting up in bed, on room air, in no apparent distress. HEAD: Normocephalic and atraumatic EYES: Normal reaction of pupils, equal size. NOSE: Clear with pink turbinates. THROAT: No erythema or exudates. NECK: No masses, no JVD. CHEST: No chest wall deformity. LUNGS: Equal air entry with diffuse expiratory wheezes heard throughout. No conversational dyspnea. CVS: S1 and S2 normal with no audible murmur, regular rhythm. No extra heart sounds ABDOMEN: No hepatosplenomegaly, active bowel sounds, no guarding or rigidity. SPINE: No scoliosis or deformity SKIN: No rashes CENTRAL NERVOUS SYSTEM: No focal deficits, tone is normal in all 4 extremities. EXTREMITIES: There is no peripheral edema, clubbing, or cyanosis. Peripheral pulses are intact. - Labs CBC & Chem 7: 01/16/24 06:16 01/16/24 06:16 Labs: Abnormal Lab Results - Last 24 Hours (Table) 01/15/24 01/15/24 01/16/24 Range/Units 16:35 22:06 05:52 WBC (4.50-10.00) X 10*3/uL Immature Gran # (0.00-0.04) X 10*3/uL Neutrophils # (1.80-7.70) X 10*3/uL Eosinophils # (0.04-0.35) X 10*3/uL Chloride (96-109) mmol/L Anion Gap (4.00-12.00) mmol/L BUN/Creatinine Ratio (12.00-20.00) Ratio Glucose (70-110) mg/dL POC Glucose (mg/dL) 131 H 142 H 149 H (70-110) mg/dL 01/16/24 01/16/24 01/16/24 Range/Units 06:16 06:16 11:20 WBC 14.19 H (4.50-10.00) X 10*3/uL Immature Gran # 0.08 H (0.00-0.04) X 10*3/uL Neutrophils # 12.42 H (1.80-7.70) X 10*3/uL Eosinophils # 0 L (0.04-0.35) X 10*3/uL Chloride 95 L (96-109) mmol/L Anion Gap 13.90 H (4.00-12.00) mmol/L BUN/Creatinine Ratio 23.11 H (12.00-20.00) Ratio Glucose 153 H (70-110) mg/dL POC Glucose (mg/dL) 111 H (70-110) mg/dL Assessment and Plan Assessment: Acute COPD exacerbation, failed outpatient treatment, chest x-ray on arrival demonstrates chronic right midlung atelectasis/scarring, no obvious focal infiltrates or pneumonia. There is a possible small posterior pleural effusion noted on lateral view. No significant cardiomegaly or pulmonary vascular congestion. NT proBNP low. Procalcitonin negative. CT scan of the chest negative for acute process. CT scan of the sinuses with mild congestion on the right. Echocardiogram revealed preserved left ventricular systolic function. Recent history of bronchoscopy with airway examination and BAL of the right middle lobe on 12/06/2023, BAL cultures positive for haemophilus influenzae, treated outpatient with doxycycline. Elisha intermedia and Aspergillus also isolated. PCR also positive for CMV. Acute leukocytosis Acute on chronic dyspnea, secondary to above Moderate chronic obstructive pulmonary disease, with an FEV1 66% of predicted maintained on a combination of Advair maintenance inhaler, DuoNebs 4 times daily, with an albuterol rescue inhaler. Also, prednisone dependent on 5 mg p.o. tabs daily. Chronic hypoxemic respiratory failure, secondary to above, normally maintained on 2 L/min nasal cannula as needed at home History of right hilar mass, follow-up chest CT from April, demonstrated persistent right perihilar density, slightly less conspicuous than prior study, likely reflecting parenchymal scarring. CT scan from 01/12/2024 revealed chronic appearing streaky opacity right mid and lower lung vanegas representing scarring or atelectasis. Findings present back in 2020. History of hypertension History of hyperlipidemia History of hypothyroidism Former tobacco dependence, quit smoking over 25 years ago Plan: The patient was seen and evaluated Labs and medications reviewed Stable and on room air Cleared for discharge Continue her home pulmonary medications Complete a prednisone taper Follow-up in the office in 1 week I have personally seen and examined the patient, performed the documentation and the assessment and plan as written. Number of minutes spent on the visit: 10.
[2024-01-18 05:09] LABS: Mycoplasma IgG Antibody (EIA) 0.78 INDEX (<=0.90); Mycoplasma IgM Antibody 1.15 INDEX (<=0.90)
--- NOTE | 2024-01-18 11:37 | CDI ---
Documentation Clarification Form Date: 01/18/24 From: Ibis Wu Admit Date: 01/11/2024 05:23:00 PM Patient Name: Sirisha Contreras Visit Number: [id number] Discharge Date: 01/16/2024 12:02:00 PM ATTENTION: The Clinical Documentation Specialists (CDI) and [facility] Coding Staff appreciate your assistance in clarifying documentation. Please respond to the clarification below the line at the bottom and electronically sign. The CDI & [facility] Coding staff will review the response and follow-up if needed. Please note: Queries are made part of the Legal Health Record. If you have any questions, please contact the author of this message via ITS. Dr. Prince Ward, Possible right sided pneumonia is documented in the discharge summary which may lack sufficient clinical evidence/support in the medical record. Additional clarification is requested. History/Risk Factors: AECOPD with AE asthma, emphysema, chronic hypoxic respiratory failure, hypothyroidism, HTN, HLD, GERD, OA, hx of smoking Clinical Indicators: Presents with shortness of breath. Patient states has been suffering with ongoing pneumonia since the end of July 2023. No fevers, rigors or chills. CXR - No obvious infiltrate or pneumonia. WBC: 15.1, Neutrophils: 11.0, (01/10) Procalcitonin: 0.04 (01/11) Treatment: IV Azithromycin 01/10, 01/11, 01/12 & 01/13 IV Ceftriaxone 01/10, 01/11, 01/12 & 01/13 Please clarify if pneumonia is a valid diagnosis? [x ] Yes, Pneumonia is present [ ] No, Pneumonia is ruled out [ ] Other (please specify diagnosis) [ ] Unable to determine MTDD
--- NOTE | 2024-01-23 07:36 | P.PN ---
Subjective Progress Note Date: 01/15/24 Principal diagnosis: Reason for follow-up is possible pneumonia Patient is a 73-year-old female past medical history significant for hypertension hyperlipidemia reflux COPD asthma pneumonia presenting to the hospital for evaluation of increasing shortness of breath and cough symptoms have been chronic with acute worsening and has been multiple course of antibiotic in the outpatient setting, chest x-ray with a streaky opacity right midlung. On today's evaluation that is 01/15/2024, Patient continues to be afebrile patient remains to be on room air however still complaining of shortness of breath but denies any worsening cough or sputum production no nausea vomiting abdominal pain or diarrhea Patient white count is down to 14.1 today, cultures so far negative Objective - Vital Signs Vital signs: Vital Signs Temp 98.0 F 01/15/24 13:25 Pulse 84 01/15/24 15:48 Resp 17 01/15/24 13:25 BP 130/81 01/15/24 13:25 Pulse Ox 95 01/15/24 13:25 FiO2 Intake & Output 01/14/24 01/15/24 01/15/24 18:59 06:59 18:59 Other: # Voids 3 4 - Exam GENERAL DESCRIPTION: An elderly female lying in bed in no distress RESPIRATORY SYSTEM: Unlabored breathing , coarse breath sounds at bases HEART: S1 S2 regular rate and rhythm , ABDOMEN: Soft , no tenderness EXTREMITIES: No edema feet - Labs CBC & Chem 7: 01/16/24 06:16 01/16/24 06:16 Labs: Abnormal Lab Results - Last 24 Hours (Table) 01/14/24 01/15/24 01/15/24 Range/Units 20:06 04:44 04:44 WBC 14.14 H (4.50-10.00) X 10*3/uL MCHC 31.6 L (32.0-37.0) g/dL Immature Gran # 0.06 H (0.00-0.04) X 10*3/uL Neutrophils # 12.61 H (1.80-7.70) X 10*3/uL Eosinophils # 0 L (0.04-0.35) X 10*3/uL Anion Gap 12.80 H (4.00-12.00) mmol/L BUN/Creatinine Ratio 28.86 H (12.00-20.00) Ratio Glucose 156 H (70-110) mg/dL POC Glucose (mg/dL) 127 H (70-110) mg/dL 01/15/24 01/15/24 01/15/24 Range/Units 06:17 11:25 16:35 WBC (4.50-10.00) X 10*3/uL MCHC (32.0-37.0) g/dL Immature Gran # (0.00-0.04) X 10*3/uL Neutrophils # (1.80-7.70) X 10*3/uL Eosinophils # (0.04-0.35) X 10*3/uL Anion Gap (4.00-12.00) mmol/L BUN/Creatinine Ratio (12.00-20.00) Ratio Glucose (70-110) mg/dL POC Glucose (mg/dL) 137 H 122 H 131 H (70-110) mg/dL Microbiology - Last 24 Hours (Table) 01/11/24 17:45 Blood Culture - Preliminary Blood 01/11/24 17:00 Blood Culture - Preliminary Blood Assessment and Plan (1) Allergy to multiple antibiotics Status: Acute Code(s): Z88.1 - ALLERGY STATUS TO OTHER ANTIBIOTIC AGENTS SNOMED Code(s): 148003540 (2) Leukocytosis Status: Acute Code(s): D72.829 - ELEVATED WHITE BLOOD CELL COUNT, UNSPECIFIED SNOMED Code(s): 555196821 (3) Pneumonia Status: Acute Code(s): J18.9 - PNEUMONIA, UNSPECIFIED ORGANISM SNOMED Code(s): 223418847 Plan: 1patient presented to hospital with increased shortness of breath productive cough did have elevated white count chest x-ray with an opacity concerning for pneumonia in this patient has been on multiple courses of antibiotics in the outpatient setting 2 blood and sputum culture has been obtained which are currently pending 3-patient with multiple antibiotic ALLERGIES that would limit the number of antibiotic safe to use 4-patient leukocytosis is more likely steroid related and is trending down patient is covered with Rocephin culture has been negative so far Dictation was produced using [employer] software. please excuse any grammatical, word or spelling errors. Time with Patient: Less than 30
== END 2024-01-16 12:02 | disposition home or self-care (01) | DRG 190 ==
LOC: EC 16:34 → 4SSUR 17:23
PROVIDERS: ADMIT Hospitalist; ATTEND Hospitalist
DX: J44.1 Chronic obstructive pulmonary disease with (acute) exacerbation (principal); J18.9 Pneumonia, unspecified organism; J45.901 Unspecified asthma with (acute) exacerbation; J96.11 Chronic respiratory failure with hypoxia; J90 Pleural effusion, not elsewhere classified; J98.11 Atelectasis; E03.9 Hypothyroidism, unspecified; I10 Essential (primary) hypertension; J43.9 Emphysema, unspecified; E78.5 Hyperlipidemia, unspecified; J34.2 Deviated nasal septum; K21.9 Gastro-esophageal reflux disease without esophagitis; M19.90 Unspecified osteoarthritis, unspecified site; Z87.01 Personal history of pneumonia (recurrent); Z79.52 Long term (current) use of systemic steroids; Z79.1 Long term (current) use of non-steroidal anti-inflammatories (NSAID); Z79.890 Hormone replacement therapy; Z79.899 Other long term (current) drug therapy; Z87.891 Personal history of nicotine dependence; Z88.1 Allergy status to other antibiotic agents; Z88.5 Allergy status to narcotic agent; Z88.0 Allergy status to penicillin; Z88.2 Allergy status to sulfonamides; Z88.8 Allergy status to other drugs, medicaments and biological substances
CPT/HCPCS: 36415; 70486; 71046; 71250; 80048; 80053; 82784; 82785; 83036; 83605; 83735; 83880; 84145; 84484; 85025; 85610; 85730; 86738; 87040; 87070; 87205; 87449; 87636; 93005; 93306; 94640; 96365; 96366; 96367; 99285

== ENCOUNTER → 2025-03-04 | Outpatient (CLI) | payer MEDICARE ==
[2025-03-04 15:47] LABS: Anion Gap 13.70 mmol/L (4.00-12.00); BUN/Creat Ratio 22.11 Ratio (12.00-20.00); Blood Urea Nitrogen 19.9 mg/dL (9.0-27.0); Calcium 10.0 mg/dL (8.7-10.3); Carbon Dioxide 27.3 mmol/L (21.6-31.8); Chloride 98 mmol/L (96-109); Glucose 96 mg/dL (70-110); Potassium 4.8 mmol/L (3.5-5.5); Sodium 139 mmol/L (135-145)
== END | disposition home or self-care (01) ==
LOC: LABWHC1 10:25
PROVIDERS: ATTEND Internal Medicine
DX: E87.5 Hyperkalemia (principal)
CPT/HCPCS: 36415; 80048